=== PATIENT | male | born 1945 | race Caucasian/White ===

== ENCOUNTER 2017-12-29 20:24 | Observation (INO) | payer OTHER ==
[2017-12-29 21:23] LABS: Absolute Lymphocytes (CBC) 2.2 K/uL (0.7-4.9); Absolute Monocytes 0.8 K/uL (0.1-1.3); Absolute Neutrophil 5.1 K/uL (1.8-8.0); Basophils % 0.8 % (0-1.3); Eosinophils % 5.8 % (0-4.4); Lymphocytes % 25.4 % (15.3-44.8); MCH 31.3 pg (27.0-35.0); MCV 93.5 fL (80-100); MPV 9.7 fL (7.6-11.3); Monocytes % 9.1 % (3.3-12.3)
[2017-12-29 21:29] LABS: Protime INR 0.99
[2017-12-29 21:47] LABS: ALT/SGPT 32 U/L (12-78); AST/SGOT 19 U/L (15-37); BUN Blood Urea Nitrogen 37 mg/dL (7-18); Bicarbonate 31 mmol/L (21-32); Glucose Level 160 mg/dL (74-106); Potassium 5.1 mmol/L (3.5-5.1); Sodium Level 142 mmol/L (136-145)
[2017-12-29 21:48] LABS: Albumin 3.2 g/dL (3.4-5.0); Alkaline Phosphatase 96 U/L (45-117); Bilirubin Direct 0.1 mg/dL (0-0.2); Bilirubin Total 0.4 mg/dL (0.2-1.0); CKMB Creatine Kinase MB 1.9 ng/mL (0.3-3.6); Creatine Phosphokinase 71 U/L (39-308); NT PRO-BNP 709 pg/mL (<125); Protein, Total 6.9 g/dL (6.4-8.2); Troponin (Emerg Dept Use Only) < 0.02 ng/mL (0.0-0.045)
--- NOTE | 2017-12-29 21:53 | RAD REPORT ---
EXAM DESCRIPTION: Dejant Single View12/29/2017 9:34 pm CLINICAL HISTORY: CHEST PAIN COMPARISON: Chest Pa And Lat (2 Views) dated 05/05/2017 FINDINGS: The lungs appear clear of acute infiltrate. The heart is normal size IMPRESSION: No acute abnormalities displayed
--- NOTE | 2017-12-29 22:02 | ER ---
Nurse's Notes [facility] Name: Bry Hickey III Age: 72 yrs Sex: Male : 1945 Arrival Date: 12/29/2017 Time: 20:25 Bed 5 Private MD: Lauren Walker R Diagnosis: Chest pain Presentation: 12/29 20:30 Presenting complaint: Patient states: that he was sleeping and woke up with chest pain fc and neck pain. Got up took some Rolaids and went back to lay down. The chest pain continued for approx 1 hr. He currently has no pain unless he is taking a deep breath. Positive shortness of breath but no nausea or vomiting. Transition of care: patient was not received from another setting of care. Onset of symptoms was December 29, 2017 at 18:30. Risk Assessment: Do you want to hurt yourself or someone else? Patient reports no desire to harm self or others. Initial Sepsis Screen: Does the patient meet any 2 criteria? No. Patient's initial sepsis screen is negative. Does the patient have a suspected source of infection? No. Patient's initial sepsis screen is negative. Care prior to arrival: Medication(s) given: Rolaids x 2. 20:30 Method Of Arrival: Ambulatory fc 20:30 Acuity: DOMINIQUE 3 fc Historical: - Allergies: 20:51 Unknown antibiotic; fc - Home Meds: 20:51 Humulin 70/30 Sub-Q 35 units in am, 35 units at noon and 30 units at night [Active]; fc aspirin 81 mg Oral chew 1 tab once daily [Active]; gabapentin 600 mg Oral tab 1 tab twice a day [Active]; pravastatin 40 mg Oral tab 1 tab once daily [Active]; ramipril 10 mg Oral cap 1 cap once daily [Active]; tramadol 50 mg Oral tab 1 tab as needed [Active]; - PMHx: 20:51 Diabetes - IDDM; High Cholesterol; Hypertension; Peripheral neuropathy; restless leg fc syndrome; - PSHx: 20:51 right great toe and second toe amp; carrotid surg; right ankle; fc - Immunization history:: Last tetanus immunization: unknown. - Social history:: Smoking status: Patient uses tobacco products, chewing tobacco, Patient/guardian denies using alcohol. - Ebola Screening: : Patient negative for fever greater than or equal to 101.5 degrees Fahrenheit, and additional compatible Ebola Virus Disease symptoms Patient denies exposure to infectious person Patient denies travel to an Ebola-affected area in the 21 days before illness onset. Screenin:48 Abuse screen: Denies threats or abuse. Nutritional screening: No deficits noted. fc Tuberculosis screening: No symptoms or risk factors identified. Fall Risk None identified. Assessment: 20:30 General: Appears in no apparent distress. comfortable, obese, Behavior is calm, bp cooperative, appropriate for age. Pain: Denies pain. Neuro: Level of Consciousness is awake, alert, obeys commands, Oriented to person, place, time, situation, Appropriate for age. 20:30 Cardiovascular: Rhythm is sinus rhythm. Respiratory: Airway is patent Respiratory aa1 effort is even, unlabored, Respiratory pattern is regular, symmetrical. GI: No signs and/or symptoms were reported involving the gastrointestinal system. : No signs and/or symptoms were reported regarding the genitourinary system. EENT: No deficits noted. Derm: No deficits noted. Musculoskeletal: Circulation, motion, and sensation intact. Range of motion: intact in all extremities. 20:30 Pain: Pain radiates to chest Pain began NO CP CURRENTLY. bp 21:30 Reassessment: VS STABLE ON MONITOR, LAB/RAD RESULTS PENDING. aa1 22:28 Reassessment: ADMIT MD AT B/S, ADMIT IN PROCESS. bp 22:50 Reassessment: Room available in [facility] and orders available in [facility], called telemetry cc3 unit's extension at 1440 and spoke with staff Aislinn and said that the nurse who will receive will just call back. 23:20 Reassessment: Patient appears in no apparent distress at this time. Patient and/or cc3 family updated on plan of care and expected duration. Pain level reassessed. Patient is alert, oriented x 3, equal unlabored respirations, skin warm/dry/pink. 23:25 Reassessment: Called again telemetry unit at extension 1440 and handed over the patient cc3 report to HAYDER Dowling for continuity of care. 23:30 Reassessment: Transferred the patient to telemetry unit room 412 vitally stable by cc3 wheelchair for admission. Vital Signs: 20:30 BP 168 / 91; Pulse 80; Resp 20; Temp 98.3(O); Pulse Ox 96% on R/A; Weight 120.2 kg (R); fc Height 6 ft. 5 in. (195.58 cm) (R); Pain 0/10; 21:00 BP 163 / 80; Pulse 78; Resp 20; Pulse Ox 93% ; bp 21:30 BP 149 / 77; Pulse 81; Resp 14; Pulse Ox 97% ; aa1 22:29 BP 169 / 87; Pulse 78; Resp 11; Pulse Ox 97% ; bp 23:00 BP 181 / 65; Pulse 80; Resp 12 S; Pulse Ox 96% on R/A; Pain 0/10; cc3 20:30 Body Mass Index 31.42 (120.20 kg, 195.58 cm) fc ED Course: 20:25 Patient arrived in ED. al2 20:25 Lauren Walker MD is Private Physician. al2 20:30 Arm band placed on Patient placed in an exam room, on a stretcher. fc 20:30 Patient has correct armband on for positive identification. Placed in gown. Bed in low fc position. Call light in reach. Side rails up X 1. contact officer on. Pulse ox on. NIBP on. 20:33 Yony Valencia RN is Primary Nurse. bp 20:39 Asa Bell MD is Attending Physician. pkl 20:47 Triage completed. fc 20:49 Inserted saline lock: 22 gauge in left antecubital area, using aseptic technique. Blood bp collected. 21:33 X-ray completed. Portable x-ray completed in exam room. Patient tolerated procedure bb2 well. 21:34 XRAY Chest (1 view) In Process Unspecified. EDMS 22:01 Carline Zimmer MD is Hospitalizing Provider. pkl 22:29 No provider procedures requiring assistance completed. Patient admitted, IV remains in bp place. Patient maintains SpO2 saturation greater than 95% on room air. Administered Medications: No medications were administered Outcome: 22:01 Decision to Hospitalize by Provider. pkl 22:30 Condition: stable bp 22:30 Instructed on the need for admit. 23:25 Admitted to Tele accompanied by nurse, via wheelchair, room 412, with chart, Report cc3 called to HAYDER Dowling 23:54 Patient left the ED. cc3 Signatures: Dispatcher [employer] EDMS Augustina Arevalo RN RN aa1 Asa Bell MD MD pkl Job, HAYDER Pearson RN fc Yony Valencia RN RN bp Paresh, Radha bb2 Fide Hodgson Charlene cc3
--- NOTE | 2017-12-29 22:02 | EDPHYS ---
Physician Documentation [facility] Name: Bry Hickey III Age: 72 yrs Sex: Male : 1945 Arrival Date: 12/29/2017 Time: 20:25 Bed 5 Private MD: Lauren Walker R ED Physician Asa Bell HPI: 12/29 21:12 This 72 yrs old Male presents to ER via Ambulatory with complaints of Chest pkl Pain, Shortness Of Breath. 21:12 The patient or guardian reports chest pain that is located primarily in the substernal pkl area. Onset: just prior to arrival, 3 hour(s) ago. The pain radiates to neck. Associated signs and symptoms: Pertinent positives: shortness of breath. The chest pain is described as a pressure, squeezing. Duration: The patient or guardian reports a single episode, that lasted 1 hour(s). Historical: - Allergies: 20:51 Unknown antibiotic; fc - Home Meds: 20:51 Humulin 70/30 Sub-Q 35 units in am, 35 units at noon and 30 units at night [Active]; fc aspirin 81 mg Oral chew 1 tab once daily [Active]; gabapentin 600 mg Oral tab 1 tab twice a day [Active]; pravastatin 40 mg Oral tab 1 tab once daily [Active]; ramipril 10 mg Oral cap 1 cap once daily [Active]; tramadol 50 mg Oral tab 1 tab as needed [Active]; - PMHx: 20:51 Diabetes - IDDM; High Cholesterol; Hypertension; Peripheral neuropathy; restless leg fc syndrome; - PSHx: 20:51 right great toe and second toe amp; carrotid surg; right ankle; fc - Immunization history:: Last tetanus immunization: unknown. - Social history:: Smoking status: Patient uses tobacco products, chewing tobacco, Patient/guardian denies using alcohol. - Ebola Screening: : Patient negative for fever greater than or equal to 101.5 degrees Fahrenheit, and additional compatible Ebola Virus Disease symptoms Patient denies exposure to infectious person Patient denies travel to an Ebola-affected area in the 21 days before illness onset. ROS: 21:12 Eyes: Negative for injury, pain, redness, and discharge, ENT: Negative for injury, pkl pain, and discharge, Neck: Negative for injury, pain, and swelling. 21:12 Cardiovascular: Positive for chest pain. 21:12 Respiratory: Positive for shortness of breath. 21:12 Abdomen/GI: Negative for abdominal pain, nausea, vomiting, and diarrhea. 21:12 Back: Negative for acute changes. 21:12 : Negative for urinary symptoms. 21:12 MS/extremity: Negative for acute changes. 21:12 Skin: Negative for rash. 21:12 Neuro: Negative for altered mental status. Exam: 21:12 Head/Face: Normocephalic, atraumatic. Eyes: Pupils equal round and reactive to light, pkl extra-ocular motions intact. Lids and lashes normal. Conjunctiva and sclera are non-icteric and not injected. Cornea within normal limits. Periorbital areas with no swelling, redness, or edema. ENT: Nares patent. No nasal discharge, no septal abnormalities noted. Tympanic membranes are normal and external auditory canals are clear. Oropharynx with no redness, swelling, or masses, exudates, or evidence of obstruction, uvula midline. Mucous membranes moist. Neck: Trachea midline, no thyromegaly or masses palpated, and no cervical lymphadenopathy. Supple, full range of motion without nuchal rigidity, or vertebral point tenderness. No Meningismus. Chest/axilla: Normal chest wall appearance and motion. Nontender with no deformity. No lesions are appreciated. Cardiovascular: Regular rate and rhythm with a normal S1 and S2. No gallops, murmurs, or rubs. Normal PMI, no JVD. No pulse deficits. Respiratory: Lungs have equal breath sounds bilaterally, clear to auscultation and percussion. No rales, rhonchi or wheezes noted. No increased work of breathing, no retractions or nasal flaring. Abdomen/GI: Soft, non-tender, with normal bowel sounds. No distension or tympany. No guarding or rebound. No evidence of tenderness throughout. Back: No spinal tenderness. No costovertebral tenderness. Full range of motion. Skin: Warm, dry with normal turgor. Normal color with no rashes, no lesions, and no evidence of cellulitis. MS/ Extremity: Pulses equal, no cyanosis. Neurovascular intact. Full, normal range of motion. Neuro: Awake and alert, GCS 15, oriented to person, place, time, and situation. Cranial nerves II-XII grossly intact. Motor strength 5/5 in all extremities. Sensory grossly intact. Cerebellar exam normal. Normal gait. Vital Signs: 20:30 BP 168 / 91; Pulse 80; Resp 20; Temp 98.3(O); Pulse Ox 96% on R/A; Weight 120.2 kg (R); fc Height 6 ft. 5 in. (195.58 cm) (R); Pain 0/10; 21:00 BP 163 / 80; Pulse 78; Resp 20; Pulse Ox 93% ; bp 21:30 BP 149 / 77; Pulse 81; Resp 14; Pulse Ox 97% ; aa1 22:29 BP 169 / 87; Pulse 78; Resp 11; Pulse Ox 97% ; bp 23:00 BP 181 / 65; Pulse 80; Resp 12 S; Pulse Ox 96% on R/A; Pain 0/10; cc3 20:30 Body Mass Index 31.42 (120.20 kg, 195.58 cm) fc MDM: 20:39 Patient medically screened. pkl 22:00 Data reviewed: vital signs, nurses notes, lab test result(s), EKG, radiologic studies, pkl plain films. 12/29 20:48 Order name: Basic Metabolic Panel; Complete Time: 21:55 bp 12/29 20:48 Order name: CBC with Diff; Complete Time: 21:55 bp 12/29 20:48 Order name: Ckmb; Complete Time: 21:55 bp 12/29 20:48 Order name: CPK; Complete Time: 21:55 bp 12/29 20:48 Order name: LFT's; Complete Time: 21:55 bp 12/29 20:48 Order name: Magnesium; Complete Time: 21:55 bp 12/29 20:48 Order name: NT PRO-BNP; Complete Time: 21:55 bp 12/29 20:48 Order name: PT-INR; Complete Time: 21:55 bp 12/29 20:48 Order name: Ptt, Activated; Complete Time: 21:55 bp 12/29 20:48 Order name: Troponin (emerg Dept Use Only); Complete Time: 21:55 bp 12/29 20:48 Order name: XRAY Chest (1 view); Complete Time: 21:55 bp 12/29 20:48 Order name: EKG; Complete Time: 20:49 bp 12/29 20:48 Order name: Cardiac monitoring; Complete Time: 20:49 bp 12/29 20:48 Order name: EKG - Nurse/Tech; Complete Time: 20:49 bp 12/29 20:48 Order name: IV Saline Lock; Complete Time: 20:49 bp 12/29 20:48 Order name: Labs collected and sent; Complete Time: 20:49 bp 12/29 20:48 Order name: O2 Per Protocol; Complete Time: 20:49 bp 12/29 20:48 Order name: O2 Sat Monitoring; Complete Time: 20:49 bp 12/29 20:48 Order name: Urine Dipstick-Ancillary (obtain specimen); Complete Time: 21:59 bp 12/29 22:02 Order name: Urine Dipstick--Ancillary (enter results); Complete Time: 00:16 ms 12/29 23:53 Order name: Glucose, Ancillary Testing; Complete Time: 00:16 EDMS Administered Medications: No medications were administered Disposition: 12/29/17 22:01 Hospitalization ordered by Carline Zimmer for Observation. Preliminary diagnosis is Chest pain. - Bed requested for Telemetry/MedSurg (observation). - Status is Observation. cc3 - Condition is Stable. - Problem is new. - Symptoms have improved. UTI on Admission? No Signatures: Dispatcher [employer] EDNM Sherine Fink RN RN mw Lam, Pin, MD MD pkl Chretien, Felicia RN Yony Willis RN RN Gracie Weems cc3 Corrections: (The following items were deleted from the chart) 22:25 22:01 Hospitalization Ordered by Carline Zimmre MD for Observation. Preliminary mw diagnosis is Chest pain. Bed requested for Telemetry/MedSurg (observation). Status is Observation. Condition is Stable. Problem is new. Symptoms have improved. UTI on Admission? No. pkl 23:54 22:25 12/29/2017 22:01 Hospitalization Ordered by Carline Zimmer MD for Observation. cc3 Preliminary diagnosis is Chest pain. Bed requested for Telemetry/MedSurg (observation). Status is Observation. Condition is Stable. Problem is new. Symptoms have improved. UTI on Admission? No. mw
[2017-12-29 22:34] LABS: Urine Blood TRACE (NEG); Urine Glucose TRACE (NEG); Urine Protein 3+ (NEG); Urine Specific Gravity 1.025 (1.005-1.030)
--- NOTE | 2017-12-29 22:45 | P.HP ---
Certification for Inpatient Patient admitted to: Observation With expected LOS: <2 Midnights Practitioner: I am a practitioner with admitting privileges, knowledge of patient current condition, hospital course, and medical plan of care. Services: Services provided to patient in accordance with Admission requirements found in Title 42 Section 412.3 of the Code of Federal Regulations Patient History Date of Service: 12/29/17 Reason for admission: Chest pain History of Present Illness: Mr Hickey is a 72-year-old male with history of diabetes mellitus types 2, hypertension, dyslipidemia, who came to the ER complaining of chest pain. The pain started about 3 hr ago while he was sleeping. He states that the pain started in his throat, neck and numbness sensation, and subsequently, the pain went down to his chest. It lasts for about 1 hr, he denied any nausea, vomiting or dizziness, but it was associated with mild shortness of breath. He has never had this kind of pain before. He rates the pain 8/10 of intensity. At the time of my encounter, patient was pain-free. EKG shows a septal infarct of undetermined age, no ST-T abnormalities. Initial troponin I is negative. 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 moist/pink, EOMI, Sclerae nonicteric Neck: Supple, 2+ carotid pulse no bruit, No LAD, Without JVD or thyroid abnormality Respiratory: Clear to auscultation bilaterally, Normal air movement Cardiovascular: Regular rate/rhythm, Normal S1 S2 Gastrointestinal: Normal bowel sounds, No tenderness Musculoskeletal: No tenderness Integumentary: No rashes Neurological: Normal speech, Normal strength at 5/5 x4 extr, Normal tone, Normal affect Lymphatics: No axilla or inguinal lymphadenopathy - Studies Laboratory Data (last 24 hrs) 12/29/17 20:50: PT 11.7, INR 0.99, APTT 35.1 12/29/17 20:50: WBC 8.7, Hgb 14.7, Hct 44.0, Plt Count 195 12/29/17 20:50: Sodium 142, Potassium 5.1, BUN 37 H, Creatinine 2.60 H, Glucose 160 H, Magnesium 2.0, Total Bilirubin 0.4, AST 19, ALT 32, Alkaline Phosphatase 96 Assessment and Plan - Problems (Diagnosis) (1) Chest pain Current Visit: Yes Status: Acute Qualifiers: Chest pain type: unspecified Qualified Code(s): R07.9 - Chest pain, unspecified (2) Diabetes mellitus Current Visit: Yes Status: Acute Qualifiers: Diabetes mellitus type: type 2 Diabetes mellitus 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 So far EKG and troponin I are negative. Will order an echocardiogram in a.m. and a cardiology consult for evaluation recommendation. Will order hemoglobin A1c, and SSI for blood sugar control. - Advance Directives Does patient have a Living Will: No Does patient have a Durable POA for Healthcare: No - Code Status/Comfort Care Code Status Assessed: Yes Code Status: Full Code
[2017-12-29] MEDS ORDERED: ACETAMINOPHEN 500 MG TAB PO PRN (22:49)
[2017-12-30 00:18] VITALS: BMI 30.3
[2017-12-30 04:39] VITALS: O2SAT 94
[2017-12-30] MEDS: INSULIN -REGULAR HUMAN 50 UNIT/0.5 ML ML SQ SCH ×3 (06:27→12:00)
[2017-12-30 06:41] LABS: Absolute Lymphocytes (CBC) 2.3 K/uL (0.7-4.9); Absolute Monocytes 0.7 K/uL (0.1-1.3); Absolute Neutrophil 6.4 K/uL (1.8-8.0); Basophils % 0.9 % (0-1.3); Eosinophils % 3.9 % (0-4.4); Hematocrit 44.4 % (39.6-49.0); Lymphocytes % 23.4 % (15.3-44.8); MCH 31.1 pg (27.0-35.0); MCV 93.6 fL (80-100); MPV 9.9 fL (7.6-11.3); Monocytes % 7.5 % (3.3-12.3); RBC Red Blood Cell Count 4.75 M/uL (4.33-5.43)
[2017-12-30 06:43] LABS: Potassium 4.9 mmol/L (3.5-5.1)
[2017-12-30] MEDS ORDERED: ENOXAPARIN 30 MG/0.3 ML SQ SCH (09:00)
[2017-12-30] MEDS ORDERED: ASPIRIN EC 81 MG TAB PO SCH (09:00)
[2017-12-30] MEDS ORDERED: REGADENOSON 0.4 MG/5 ML SYR IV ONE (11:25)
[2017-12-30 12:32] VITALS: BP 192/88; TEMP 98
--- NOTE | 2017-12-30 13:00 | P.SSS ---
Patient History Date of Service: 12/30/17 Reason for admission: Chest pain History of Present Illness: Mr Hickey is a 72-year-old male with history of diabetes mellitus types 2, hypertension, dyslipidemia, who came to the ER complaining of chest pain. The pain started about 3 hr ago while he was sleeping. He states that the pain started in his throat, neck and numbness sensation, and subsequently, the pain went down to his chest. It lasts for about 1 hr, he denied any nausea, vomiting or dizziness, but it was associated with mild shortness of breath. He has never had this kind of pain before. He rates the pain 8/10 of intensity. At the time of my encounter, patient was pain-free. EKG shows a septal infarct of undetermined age, no ST-T abnormalities. Initial troponin I is negative. 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 moist/pink, EOMI, Sclerae nonicteric Neck: Supple, 2+ carotid pulse no bruit, No LAD, Without JVD or thyroid abnormality Respiratory: Clear to auscultation bilaterally, Normal air movement Cardiovascular: Regular rate/rhythm, Normal S1 S2 Gastrointestinal: Normal bowel sounds, No tenderness Musculoskeletal: No tenderness Integumentary: No rashes Neurological: Normal gait, Normal speech, Normal strength at 5/5 x4 extr, Normal tone, Normal affect Lymphatics: No axilla or inguinal lymphadenopathy - Studies Laboratory Data (last 24 hrs) 12/29/17 20:50: PT 11.7, INR 0.99, APTT 35.1 12/29/17 20:50: WBC 8.7, Hgb 14.7, Hct 44.0, Plt Count 195 12/29/17 20:50: Sodium 142, Potassium 5.1, BUN 37 H, Creatinine 2.60 H, Glucose 160 H, Magnesium 2.0, Total Bilirubin 0.4, AST 19, ALT 32, Alkaline Phosphatase 96 Treatment Summary: Overall during the hospital stay patient remained stable Patient was initially admitted to the hospital for chest pain and shortness of breath. Patient had stress test and echocardiogram done here in the hospital which were both within normal limits. Patient has a history of chronic kidney disease and his creatinine was elevated as a heart catheterization could not be done at this time. Patient however does follow up with the engravings polisher at [facility] in both and was asked to follow up with him in about 1-2 days post discharge. Patient stated that he has an appointment with his engravings polisher next week. When his chest pain had resolved and thus he is okay with falling with his own cardiology. Patient's troponin x2 remained negative while here in the hospital an EKG was also within normal limits. Patient then was discharged home under stable condition. Patient's symptoms were most likely secondary to reflux versus musculoskeletal pain patient was educated extensively on diet and exercise and importance of following up with his primary care provider and Cardiology. Patient demonstrated understanding and thus was discharged home under stable condition - Disposition Disposition: ROUTINE DISCHARGE
--- NOTE | 2017-12-30 13:42 | RAD REPORT ---
EXAM DESCRIPTION: NM - Rest Stress Cardiac Imaging - 12/30/2017 1:22 pm CLINICAL HISTORY: Chest pain COMPARISON: None. TECHNIQUE: The patient was administered 10.6 mCi of Tc 99m Sestamibi prior to resting SPECT imaging of the heart. The patient was then administered 30.6 mCi of Tc 99m Sestamibi following exercise or ph armacologic stress. Multiplanar SPECT images were reviewed. FINDINGS: The end diastolic volume is 165 ml, the end systolic volume is 103 ml, and the ejection fr action is 38 %. No stress-induced ischemia confirmed. A large fixed defect involves the inferior wall from base to ap ex. Given the ventriculomegaly, this large fixed defect could be scarring, attenuation artifact or a combination. IMPRESSION: No stress-induced ischemia. Large fixed defect inferior wall could be scarring, attenuation artifact or a combination. End-diastolic volume was 165 mL with a 38% ejection fraction.
--- NOTE | 2017-12-30 16:10 | CON ---
Date of Consultation: 12/30/2017 Reason For Consultation: Atypical chest pain. History Of Present Illness: Mr. Hickey is a 72-year-old white male. He normally sees Dr. Adriana Arellano in [place]. He sees Dr. Walker for primary care. He is supposed to have follow up wi Dr. Arellano in the future. He came in with what he described as indigestion allowed for about 15 mi nutes. He had no nausea or vomiting or diaphoresis. He denied PND, orthopnea, pedal edema. Denied shortness of breath. No palpitations or syncope. He did complain of some facial numbness. His CPK, MBs, and troponin were negative. His chest x-ray was negative. His EKG was nonspecific. He had a BNP of 709. Glucose was 149. His creatinine was 2.6. Past Medical History: Includes chronic renal insufficiency, peripheral vascular disease. He has had his first second right toe removed. He has a history of carotid surgery, diabetes, hypertension, an d dyslipidemia. He does not remember his carotid surgeon or the place he had it done. Allergies: HE IS ALLERGIC TO AN ANTIBIOTIC. HE DOES NOT KNOW THE NAME. Review of Systems: Negative. Social History: Negative. Family History: Positive for heart disease. Medications: At home include insulin, Pravachol, and ramipril. Physical Examination: Vital Signs: Stable. He was afebrile. HEENT: Negative. Neck: Supple without any bruit, adenopathy, JVD, or thyromegaly. Chest: Clear to auscultation and percussion. Cardiac: Revealed a regular rhythm and rate with S4 gallops. Aortic sclerosis murmur. No gallops. No rubs. Abdomen: Benign. Extremities: Revealed no clubbing, cyanosis, or edema. Diagnostic Data: As stated earlier. Impression And Plan: 1.Atypical chest pain certainly could be suggestive of coronary artery disease, especially with the facial numbness along with indigestion. It could also be related to gastroesophageal reflux disease. I am concerned about his creatinine of 2.6 and I certainly would not expose him to IV contract with catheterization unless we absolutely have to. I would like him to get an echocardiogram and Lexisca n to see the extent of his coronary artery disease in any and see what his wall motion abnormality is any and check on his valvular heart disease as well. I still would suggest a medical therapy unless is absolutely necessary to do an angiography. 2.His other problems include cerebrovascular disease, status post carotid endarterectomy. He told yue brooks that he is going to have his carotid checked at Dr. Arellano's office when he sees him. 3.He has peripheral vascular disease, status post amputation. 4.He has diabetes that is poorly controlled. 5.Hypertension that is well controlled. 6.Dyslipidemia that is well controlled. Forty five minutes was spent in the care of Mr. Hickey discussing the case with hand nurse, Dr. Andrew velasco. He was instructed about low-fat, low-cholesterol intake, low carbohydrate intake, low salt int ravi. NAFISA/TEAGAN Voice ID: [id number] Report ID: [id number]
--- NOTE | 2017-12-31 07:45 | ECHO ---
HEIGHT: 6 ft 5 in WEIGHT: 255 lb 11.2 oz DATE OF STUDY: 12/30/[address]: Carline Aburto MD 2-DIMENSIONAL: YES M.MODE: YES DOPPLER: YES COLOR FLOW: YES TDS: YES PORTABLE: DEFINITY: BUBBLE STUDY: DIAGNOSIS: CHEST PAIN CARDIAC HISTORY: CATHERIZATION: NO SURGERY: NO PROSTHETIC VALVE: NO PACEMAKER: NO MEASUREMENTS (cm) DIASTOLIC (NORMALS) SYSTOLIC (NORMALS) IVSd 1.1 (0.6-1.2) LA Diam 4.2 (1.9-4.0) LVEF 45% LVIDd 3.6 (3.5-5.7) LVIDs 2.8 (2.0-3.5) %FS 22% LVPWd 1.3 (0.6-1.2) Ao Diam 3.1 (2.0-3.7) 2 DIMENSIONAL ASSESSMENT: RIGHT ATRIUM: NORMAL LEFT ATRIUM: DILATED RIGHT VENTRICLE: NORMAL LEFT VENTRICLE: NORMAL TRICUSPID VALVE: NORMAL MITRAL VALVE: NORMAL PULMONIC VALVE: NORMAL AORTIC VALVE: NORMAL PERICARDIAL EFFUSION: NONE AORTIC ROOT: NORMAL LEFT VENTRICULAR WALL MOTION: PARADOXICAL SEPTUM DOPPLER/COLOR FLOW: MILD TRICUSPID REGURGITATION. COMMENTS: TECHNICALLY DIFFICULT STUDY. MILD TRICUSPID REGURGITATION. NORMAL RIGHT VENTRICULAR SYSTOLIC PRESSURE. PARADOXICAL SEPTUM. NORMAL LEFT VENTRICULAR SIZE AND FUNCTION. TECHNOLOGIST: CEZAR ELAM
--- NOTE | 2017-12-31 07:57 | TREADPHA ---
DX: CHEST PAIN Date of Study: 12/30/2017 Ht: 6 5 Wt: 255 lb 11.2 oz Consulting Physician: CECILIA MEDICATIONS: TYLENOL, ASPIRIN, LOVENOX, NOVOLIN HISTORY: 72 YEAR OLD MALE HERE FOR CHEST PAIN. HISTORY OF DIABETES, HIGH CHOLESTEROL, HYPERTENSION, PERIPHERAL NEUROPATHY, RESTLESS LEG SYNDROME. 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 AT PEAK STRESS: 161/78 IMPRESSION: LEXISCAN STRESS TEST PERFORMED. CARDIOLITE INJECTED PER PROTOCOL. OCCASIONAL PREMATURE VENTRICULAR COMPLEXES NOTED PRE AND POST STRESS TEST. PREMATURE ATRIAL COMPLEXS NOTED DURING STRESS TEST. DENIES ANY CHEST PAIN. SEE NUCLEAR MEDICINE REPORT.
== END 2017-12-30 15:48 | disposition home or self-care (01) ==
LOC: ER 20:24 → ERHOLD 22:14 → 4TH 22:34
PROVIDERS: ADMIT Internal Medicine; ATTEND Internal Medicine
DX: R07.9 Chest pain, unspecified (principal); R06.02 Shortness of breath; E78.5 Hyperlipidemia, unspecified; G25.81 Restless legs syndrome; I12.9 Hypertensive chronic kidney disease with stage 1 through stage 4 chronic kidney disease, or unspecified chronic kidney disease; E11.22 Type 2 diabetes mellitus with diabetic chronic kidney disease; N18.9 Chronic kidney disease, unspecified; Z79.82 Long term (current) use of aspirin; Z87.891 Personal history of nicotine dependence; I73.9 Peripheral vascular disease, unspecified; Z89.411 Acquired absence of right great toe
CPT/HCPCS: 36415; 71045; 78452; 80048 ×2; 80061; 80076; 81003; 82550; 82553; 82962 ×3; 83036; 83735; 83880; 84484 ×4; 85025 ×2; 85610; 85730; 93017; 93306; 99285; A9500; G0378 ×2; J1650; J2785

== ENCOUNTER 2018-06-19 10:17 | Emergency (ER) | payer OTHER ==
[2018-06-19] MEDS ORDERED: ONDANSETRON 4 MG/2 ML VIAL ONE (10:45)
[2018-06-19] MEDS ORDERED: NA CHLORIDE 0.9% 250 ML ONE (10:45)
[2018-06-19 10:56] LABS: Albumin 3.4 g/dL (3.4-5.0); Bilirubin Direct 0.2 mg/dL (0-0.2); Bilirubin Total 0.8 mg/dL (0.2-1.0); Potassium 4.3 mmol/L (3.5-5.1)
[2018-06-19 10:57] LABS: Absolute Lymphocytes (CBC) 1.5 K/uL (0.7-4.9); Absolute Monocytes 0.4 K/uL (0.1-1.3); Absolute Neutrophil 9.4 K/uL (1.8-8.0); Basophils % 0.6 % (0-1.3); Eosinophils % 0.1 % (0-4.4); Hematocrit 44.4 % (39.6-49.0); Lymphocytes % 12.9 % (15.3-44.8); Monocytes % 3.7 % (3.3-12.3); RBC Red Blood Cell Count 4.83 M/uL (4.33-5.43)
[2018-06-19] MEDS ORDERED: PROMETHAZINE 25 MG/ML VIAL ONE (11:42)
[2018-06-19] MEDS ORDERED: FAMOTIDINE 20 MG/2 ML VIAL IV ONE (11:42)
--- NOTE | 2018-06-19 12:00 | RAD REPORT ---
EXAM DESCRIPTION: CT - Abdomen Pelvis Wo Contrast - 06/19/2018 11:45 am CLINICAL HISTORY: Abdominal pain and vomiting 5 COMPARISON: None TECHNIQUE: Computed axial tomography of the abdomen and pelvis was obtained. IV and oral contrast we re not requested. All CT scans are performed using dose optimization technique as appropriate and may include automated exposure control or mA/KV adjustment according to patient size. FINDINGS: The evaluation of solid organs, vessels and bowel is limited secondary to the lack of con trast administration. A 8.5 millimeter right lower lobe nodule. The liver, spleen, and pancreas appear grossly normal. A 35 millimeter mass extends off of the posterior left kidney. Hounsfield unit 18. The right kidney a ppears grossly normal. Bilateral adrenal adenoma is suspected measuring about 17 millimeters. The appendix is normal. There is no evidence of diverticulitis. The prostate gland is mildly to moderately enlarged. Small umbilical hernia. Small hiatal hernia IMPRESSION: 8.5 millimeter right lower lobe nodule. It is recommend that the patient either have a [facility] PET-CT scan or follow-up CT scan in 3 months A 25 millimeter mass extends off of the posterior left kidney Hounsfield unit 18. Renal ultrasound is recommended to determine if this represents a cyst
[2018-06-19 12:43] LABS: Urine Blood 2+ (NEG); Urine Glucose 2+ (NEG); Urine Protein 3+ (NEG); Urine pH 5.5 (5.0-7.0)
--- NOTE | 2018-06-19 14:58 | RAD REPORT ---
EXAM DESCRIPTION: US - Renal Ultrasound-Complete - 06/19/2018 2:07 pm CLINICAL HISTORY: Left flank pain COMPARISON: CT study June 19 FINDINGS: The right kidney measures 10.8 x 6.2 x 5.9 cm. The left kidney measures 11.9 x 6.1 x 5.4 cm. Cortical thickness is normal. There is increased cortical echogenicity consistent with medical re nal disease. No hydronephrosis or solid mass seen. In the posterior mid left kidney a 3.3 centimeter anechoic cyst is identified. This matches the ultrasound finding. Mass is benign by ultrasound criter ia. No bladder wall thickening or mass. No intraluminal stone or mass. IMPRESSION: Approximately 3.3 centimeter anechoic cyst is present posterior mid left kidney. This is the correlate to the CT finding and is benign by ultrasound criteria. Underlying medical renal disease is suspected.
--- NOTE | 2018-06-19 15:03 | ER ---
Nurse's Notes [facility] Name: Bry Hickey III Age: 72 yrs Sex: Male : 1945 Arrival Date: 06/19/2018 Time: 10:18 Bed 20 Private MD: Diagnosis: Nausea and vomiting;Chronic renal failure, 8.5 mm lumg mass. Benign renal cyst Presentation: 06/19 09:15 Initial Sepsis Screen: Does the patient meet any 2 criteria? No. Patient's initial sv sepsis screen is negative. Does the patient have a suspected source of infection? No. Patient's initial sepsis screen is negative. 10:15 Presenting complaint: EMS states: n/v/malaise started today. BP 150/70 HR-88 SR, sv BS-282, 20 G R FA, NS 500 mls bolus, Zofran 4 mg IVP given. Transition of care: patient was not received from another setting of care. Onset of symptoms was June 19, 2018. Risk Assessment: Do you want to hurt yourself or someone else? Patient reports no desire to harm self or others. Care prior to arrival: IV initiated. 20 GA, in the right forearm, Glucose check: 282. 10:15 Method Of Arrival: EMS: [facility] sv 10:15 Acuity: DOMINIQUE 3 sv Triage Assessment: 10:15 General: Appears in no apparent distress. uncomfortable, well developed, Behavior is sv calm, cooperative, appropriate for age. Pain: Denies pain. Neuro: Level of Consciousness is awake, alert, obeys commands, Oriented to person, place, time, situation, Moves all extremities. Full function Gait is steady, Speech is normal. Respiratory: Airway is patent Respiratory effort is even, unlabored, Respiratory pattern is regular, symmetrical. GI: Abdomen is round non-distended, Bowel sounds present X 4 quads. Abd is soft and non tender X 4 quads. Reports constipation, nausea, vomiting. Derm: Skin is pink, warm \T\ dry. Historical: - Allergies: 10:22 unknown antibiotic; sv - PMHx: 10:22 Diabetes - IDDM; High Cholesterol; Hypertension; PERIPHERAL NEUROPATHY; restless leg sv syndrome; - PSHx: 10:22 right great toe and second toe amp; Carotid surgery; right ankle; sv - Immunization history:: Adult Immunizations up to date. - Social history:: Smoking status: Patient/guardian denies using tobacco. - Ebola Screening: : No symptoms or risks identified at this time. Screenin:15 Abuse screen: Denies threats or abuse. Denies injuries from another. Nutritional sv screening: No deficits noted. Tuberculosis screening: No symptoms or risk factors identified. Fall Risk None identified. Assessment: 10:40 Reassessment: Patient appears in no apparent distress at this time. No changes from sv previously documented assessment. Patient and/or family updated on plan of care and expected duration. Pain level reassessed. Patient is alert, oriented x 3, equal unlabored respirations, skin warm/dry/pink. 11:35 Reassessment: Patient appears in no apparent distress at this time. No changes from sv previously documented assessment. Patient and/or family updated on plan of care and expected duration. Pain level reassessed. Patient is alert, oriented x 3, equal unlabored respirations, skin warm/dry/pink. Pt requesting Phenergan. 13:00 Reassessment: Patient appears in no apparent distress at this time. No changes from sv previously documented assessment. Patient and/or family updated on plan of care and expected duration. Pain level reassessed. Patient is alert, oriented x 3, equal unlabored respirations, skin warm/dry/pink. 14:58 Reassessment: Patient appears in no apparent distress at this time. No changes from sv previously documented assessment. Patient and/or family updated on plan of care and expected duration. Pain level reassessed. Patient is alert, oriented x 3, equal unlabored respirations, skin warm/dry/pink. Vital Signs: 10:22 BP 163 / 64; Pulse 78; Resp 15; Temp 97.7(O); Pulse Ox 100% on R/A; Pain 0/10; sv 11:15 BP 123 / 75; Pulse 68; Resp 21; Pulse Ox 100% ; sv 12:00 BP 153 / 63; Pulse 76; Resp 16; Pulse Ox 100% ; sv 13:31 BP 132 / 93; Pulse 94; Resp 19; Pulse Ox 99% ; sv 15:00 BP 130 / 77; Pulse 88; Resp 16; Pulse Ox 100% ; sv ED Course: 09:15 Patient has correct armband on for positive identification. Placed in gown. Bed in low sv position. Call light in reach. Side rails up X2. bus driver/monitor on. Pulse ox on. NIBP on. Door closed. Warm blanket given. Head of bed elevated. 10:15 Maintain EMS IV. Dressing intact. Site clean \T\ dry. Gauge \T\ site: 20G R FA. sv 10:15 Arm band placed on Patient placed in an exam room, on a stretcher. sv 10:18 Patient arrived in ED. sv 10:19 Arleth Long RN is Primary Nurse. sv 10:21 Triage completed. sv 10:23 Josue Jeter MD is Attending Physician. kdr 10:30 Inserted saline lock: 22 gauge in right antecubital area, using aseptic technique. sv ,using aseptic technique. difusics, done by [facility] Blood collected. 10:43 Urine Dipstick--Ancillary (enter results) Sent. sv 10:43 Basic Metabolic Panel Sent. sv 10:43 CBC with Diff Sent. sv 10:43 Creatinine for Radiology Sent. sv 10:43 Hepatic Function Sent. sv 10:43 Lipase Sent. sv 10:44 Awaiting ED provider evaluation. sv 11:44 CT completed. Patient tolerated procedure well. Patient moved to CT via stretcher. sj Patient moved back from CT. 12:25 CT Abd/Pelvis - W/Contrast Sent. sv 13:03 Awaiting disposition, Awaiting re-evaluation by ER provider. sv 15:23 No provider procedures requiring assistance completed. IV discontinued, intact, sv bleeding controlled, No redness/swelling at site. Pressure dressing applied. Administered Medications: 10:40 Drug: Zofran 4 mg Route: IVP; Site: right forearm; sv 11:00 Follow up: Response: No adverse reaction sv 10:41 Drug: NS 0.9% 250 ml Route: IV; Rate: bolus; Site: right forearm; sv 11:30 Follow up: Response: No adverse reaction; IV Status: Completed infusion; IV Intake: sv 250ml 11:40 Drug: Phenergan 12.5 mg Route: IVP; Site: right forearm; sv 12:00 Follow up: Response: No adverse reaction; Marked relief of symptoms; Nausea is decreasedsv 11:42 Drug: Pepcid 20 mg Route: IVP; Site: right forearm; sv 12:00 Follow up: Response: No adverse reaction; Marked relief of symptoms sv 11:51 CANCELLED (Physician Discretion): Zofran 4 mg IVP once; over 2 minutes sv Intake: 11:30 IV: 250ml; Total: 250ml. sv Outcome: 15:02 Discharge ordered by . kdr 15:23 Patient left the ED. sv 15:23 Discharged to home via wheelchair, with family. sv 15:23 Condition: stable 15:23 Condition: improved 15:23 Discharge instructions given to patient, family, Instructed on discharge instructions, follow up and referral plans. no drinking with medication, no driving heavy equipment, medication usage, Demonstrated understanding of instructions, follow-up care, medications, Prescriptions given X 1. Signatures: Arleth Long RN RN sv Josue Jeter MD MD kdr Jones, Susan Corrections: (The following items were deleted from the chart) 10:41 10:22 Pulse 78bpm; Resp 15bpm; Pulse Ox 100% RA; sv sv
--- NOTE | 2018-06-19 15:03 | EDPHYS ---
Physician Documentation [facility] Name: Bry Hickey III Age: 72 yrs Sex: Male : 1945 Arrival Date: 06/19/2018 Time: 10:18 Bed 20 Private MD: ED Physician Josue Jeter HPI: 06/19 18:29 This 72 yrs old Male presents to ER via EMS with complaints of kdr Nausea/Vomiting. 18:29 The patient presents to the emergency department with nausea, that is moderate, kdr vomiting, that is intermittent. Onset: The symptoms/episode began/occurred gradually, today. Possible causes: unknown. The symptoms are aggravated by nothing. food , The symptoms are alleviated by remaining still. Associated signs and symptoms: Pertinent positives: nausea, vomiting, Pertinent negatives: abdominal pain, anorexia, constipation, diarrhea, dysuria, fever, flatulence, GI bleeding, hematuria. Severity of symptoms: At their worst the symptoms were moderate in the emergency department the symptoms are unchanged. The patient has not experienced similar symptoms in the past. The patient has not recently seen a physician. Historical: - Allergies: 10: unknown antibiotic; sv - PMHx: 10: Diabetes - IDDM; High Cholesterol; Hypertension; PERIPHERAL NEUROPATHY; restless leg sv syndrome; - PSHx: 10:22 right great toe and second toe amp; Carotid surgery; right ankle; sv - Immunization history:: Adult Immunizations up to date. - Social history:: Smoking status: Patient/guardian denies using tobacco. - Ebola Screening: : No symptoms or risks identified at this time. ROS: 18:29 Constitutional: Negative for fever, chills, and weight loss, Eyes: Negative for injury, kdr pain, redness, and discharge, Neck: Negative for injury, pain, and swelling, Cardiovascular: Negative for chest pain, palpitations, and edema, Respiratory: Negative for shortness of breath, cough, wheezing, and pleuritic chest pain, Abdomen/GI: Negative for abdominal pain, nausea, vomiting, diarrhea, and constipation, Back: Negative for injury and pain, : Negative for injury, bleeding, discharge, and swelling, MS/Extremity: Negative for injury and deformity, Skin: Negative for injury, rash, and discoloration, Neuro: Negative for headache, weakness, numbness, tingling, and seizure activity. Psych: Negative for depression, anxiety, suicide ideation, homicidal ideation, and hallucinations, Allergy/Immunology: Negative for hives, rash, and allergies, Endocrine: Negative for neck swelling, polydipsia, polyuria, polyphagia, and marked weight changes, Hematologic/Lymphatic: Negative for swollen nodes, abnormal bleeding, and unusual bruising. 18:29 Abdomen/GI: Positive for nausea and vomiting, Negative for constipation, abdominal kdr cramps, abdominal distension, anorexia, dysphagia, hematemesis, black/tarry stool, rectal pain. Exam: 18:29 Constitutional: This is a well developed, well nourished patient who is awake, alert, kdr and in no acute distress. Head/Face: Normocephalic, atraumatic. 18:29 Eyes: Pupils equal round and reactive to light, extra-ocular motions intact. Lids and kdr lashes normal. Conjunctiva and sclera are non-icteric and not injected. Cornea within normal limits. Periorbital areas with no swelling, redness, or edema. Neck: Trachea midline, no thyromegaly or masses palpated, and no cervical lymphadenopathy. Supple, full range of motion without nuchal rigidity, or vertebral point tenderness. No Meningismus. Chest/axilla: Normal chest wall appearance and motion. Nontender with no deformity. No lesions are appreciated. Cardiovascular: Regular rate and rhythm with a normal S1 and S2. No gallops, murmurs, or rubs. Normal PMI, no JVD. No pulse deficits. Respiratory: Lungs have equal breath sounds bilaterally, clear to auscultation and percussion. No rales, rhonchi or wheezes noted. No increased work of breathing, no retractions or nasal flaring. Abdomen/GI: Soft, non-tender, with normal bowel sounds. No distension or tympany. No guarding or rebound. The patient has low abdominal bloated feeling Back: No spinal tenderness. No costovertebral tenderness. Full range of motion. Skin: Warm, dry with normal turgor. Normal color with no rashes, no lesions, and no evidence of cellulitis. MS/ Extremity: Pulses equal, no cyanosis. Neurovascular intact. Full, normal range of motion. Neuro: Awake and alert, GCS 15, oriented to person, place, time, and situation. Cranial nerves II-XII grossly intact. Motor strength 5/5 in all extremities. Sensory grossly intact. Cerebellar exam normal. Normal gait. Psych: Awake, alert, with orientation to person, place and time. Behavior, mood, and affect are within normal limits. Vital Signs: 10:22 BP 163 / 64; Pulse 78; Resp 15; Temp 97.7(O); Pulse Ox 100% on R/A; Pain 0/10; sv 11:15 BP 123 / 75; Pulse 68; Resp 21; Pulse Ox 100% ; sv 12:00 BP 153 / 63; Pulse 76; Resp 16; Pulse Ox 100% ; sv 13:31 BP 132 / 93; Pulse 94; Resp 19; Pulse Ox 99% ; sv 15:00 BP 130 / 77; Pulse 88; Resp 16; Pulse Ox 100% ; sv MDM: 15:02 Patient medically screened. kdr 18:29 Data reviewed: vital signs, nurses notes. Counseling: I had a detailed discussion with kdr the patient and/or guardian regarding: the historical points, exam findings, and any diagnostic results supporting the discharge/admit diagnosis, lab results, radiology results, the need for outpatient follow up. 06/19 10:23 Order name: Basic Metabolic Panel 06/19 10:23 Order name: CBC with Diff 06/19 10:23 Order name: Creatinine for Radiology 06/19 10:23 Order name: Hepatic Function 06/19 10:23 Order name: Lipase 06/19 10:37 Order name: Urine Dipstick--Ancillary (enter results) 06/19 10:56 Order name: Basic Metabolic Panel; Complete Time: 11:24 EDIL 06/19 10:56 Order name: Liver (Hepatic) Function; Complete Time: 11:24 EDIL 06/19 10:56 Order name: Lipase; Complete Time: 11:24 EDIL 06/19 10:59 Order name: CBC with Automated Diff; Complete Time: 11:24 EDMS 06/19 11:09 Order name: Creatinine (Radiology Only); Complete Time: 11:24 EDIL 06/19 11:24 Order name: CT Abd/Pelvis - W/Contrast [facility] 06/19 12:01 Order name: CT; Complete Time: 13:05 EDIL 06/19 12:43 Order name: Urine Dipstick-Ancillary; Complete Time: 13:05 EDIL 06/19 10:23 Order name: IV Saline Lock; Complete Time: 10:38 sv 06/19 10:23 Order name: Labs collected and sent; Complete Time: 10:38 sv 06/19 14:59 Order name: US; Complete Time: 15:00 EDMS Administered Medications: 10:40 Drug: Zofran 4 mg Route: IVP; Site: right forearm; sv 11:00 Follow up: Response: No adverse reaction sv 10:41 Drug: NS 0.9% 250 ml Route: IV; Rate: bolus; Site: right forearm; sv 11:30 Follow up: Response: No adverse reaction; IV Status: Completed infusion; IV Intake: sv 250ml 11:40 Drug: Phenergan 12.5 mg Route: IVP; Site: right forearm; sv 12:00 Follow up: Response: No adverse reaction; Marked relief of symptoms; Nausea is decreasedsv 11:42 Drug: Pepcid 20 mg Route: IVP; Site: right forearm; sv 12:00 Follow up: Response: No adverse reaction; Marked relief of symptoms sv 11:51 CANCELLED (Physician Discretion): Zofran 4 mg IVP once; over 2 minutes sv Disposition: 06/19/18 15:02 Discharged to Home. Impression: Nausea and vomiting, Chronic renal failure, 8.5 mm lumg mass. Benign renal cyst. - Condition is Stable. - Discharge Instructions: Nausea and Vomiting, Adult, [id number]. - Prescriptions for promethazine 25 mg Oral Tablet - take 1 tablet by ORAL route every 6 hours As needed; 30 tablet. - Medication Reconciliation Form, Thank You Letter form. - Follow up: Private Physician; When: 2 - 3 days; Reason: If symptoms return, Further diagnostic work-up, Recheck today's complaints, Continuance of care, Re-evaluation by your physician. - Problem is new. - Symptoms have improved. Signatures: Dispatcher [employer] EDMS Arleth Long RN RN sv Rittger, Kevin, MD MD kdr Corrections: (The following items were deleted from the chart) 11:51 11:24 Zofran 4 mg IVP once; over 2 minutes ordered. kdr sv 15:23 15:02 06/19/2018 15:02 Discharged to Home. Impression: Nausea and vomiting; Chronic sv renal failure, 8.5 mm lumg mass. Benign renal cyst. Condition is Stable. Forms are Medication Reconciliation Form, Thank You Letter, Antibiotic Education, Prescription Opioid Use. Follow up: Private Physician; When: 2 - 3 days; Reason: If symptoms return, Further diagnostic work-up, Recheck today's complaints, Continuance of care, Re-evaluation by your physician. Problem is new. Symptoms have improved. kdr
[2018-06-19 16:05] VITALS: TEMP 97.7
[2018-06-19 16:09] VITALS: BP 132/93; O2SAT 99
== END 2018-06-19 15:23 | disposition home or self-care (01) ==
LOC: ER 10:17
DX: E11.22 Type 2 diabetes mellitus with diabetic chronic kidney disease (principal); I12.9 Hypertensive chronic kidney disease with stage 1 through stage 4 chronic kidney disease, or unspecified chronic kidney disease; R91.8 Other nonspecific abnormal finding of lung field; N28.1 Cyst of kidney, acquired; N18.9 Chronic kidney disease, unspecified; Z88.1 Allergy status to other antibiotic agents
CPT/HCPCS: 36415; 74176; 76770; 80048; 80076; 81003; 82962; 83690; 85025; 96365; 96375; 99285; J2405; J2550

== ENCOUNTER 2021-03-11 15:55 | Emergency (ER) | payer OTHER ==
--- OUTSIDE RECORDS SUMMARY | 2021-03-11 15:58 | XMS REPORT | Continuity of Care Document ---
:1945 Author Organization [facility] t Address [address] [place] [address] Care Team Providers Name Role Phone Aaron WAGONER Primary Care Physician Sharyn CONSTANTINO Attending Clinician Unavailable Nayeli PRADO Attending Clinician Unavailable KLAUS Attending Clinician Unavailable Klaus POOL Attending Clinician Sharyn Constantino MD Attending Clinician Doctor Unassigned, Name Attending Clinician Unavailable NICO Attending Clinician Unavailable Sharyn CONSTANTINO Admitting Clinician Unavailable Sharyn Constantino MD Admitting Clinician Payers Payer Name Policy Type Policy Number Effective Date Expiration Date Dwight DACOSTA MANAGED [id number] 2020 MEDICARE PPO-JUAN 00:00:00 MEDICARE PART A [id number] 2021 \T\ B 00:00:00 Problems Condition Condition Condition Status Onset Resolution Last Treating Co mments Source Name Details Category Date Date Treatment Clinician Date Bladder Bladder Disease Active 2020-04 Overview: Univ ers mass mass 04-28 Formattin ity of 00:00: g of this [place] note Medical might be Branch different from the original. 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 Added automatic ally from request for surgery [id number] No known No known Disease Unive rs active active ity of problems problems [facility] Branch Allergies, Adverse Reactions, Alerts Allergy Allergy Status Severity Reaction(s) Onset Inactive Treating Comm ents Source Name Type Date Date Clinician NO KNOWN Drug Active Univers ALLERGIE Class ity of [facility] Social History Social Habit Start Date Stop Date Quantity Comments Source History of Chews Tobacco [place] of tobacco use [facility] Exposure to Not sure University of SARS-CoV-2 [facility] (event) [place] Alcohol intake 2021-03-10 2021-03-10 0 /d University of 00:00:00 00:00:00 [facility] Tobacco use and 2015-10-10 2015-10-10 Current user Univers ity of exposure 00:00:00 00:00:00 [facility] [birth year] Universit y of 00:00:00 00:00:00 [facility] Smoking Status Start Date Stop Date Source Former smoker 2015-10-10 00:00:00 2015-10-10 00:00:00 Universi ty [facility] Medications Ordered Filled Start Stop Current Ordering Indication Dosage Frequency Signature Comments Components Source Medication Medication Date Date Medication? Clinician (SIG) Name Name HYDROcodone 2020-04 Yes 1{tbl} Take 1 Un tam[place] -acetaminop 1-10 tablet by ity of hen 5-325 15:47: mouth 3 [place] mg tablet 50 (three) Medical times Branch daily. aspirin 81 2020-04 Yes Take by Uni vers mg Cap 1-10 mouth. ity of 15:47: [address] HYDROcodone 2020-04 Yes 1{tbl} Take 1 Un tamiko -acetaminop 1-10 tablet by ity of hen 5-325 15:47: mouth 3 [place] mg tablet 50 (three) Medical times Branch daily. aspirin 81 2020-04 Yes Take by Uni vers mg Cap 1-10 mouth. ity of 15:47: [address] HYDROcodone 2020-04 Yes 1{tbl} Take 1 Un tam[place] -acetaminop 1-10 tablet by ity of hen 5-325 15:47: mouth 3 [place] mg tablet 50 (three) Medical times Branch daily. aspirin 81 2020-04 Yes Take by Uni vers mg Cap 1-10 mouth. ity of 15:47: [address] sennosides 2020-04 Yes 8.6mg 8.6 mg, Uni vers (SENOKOT) 1-10 Oral, ity of tablet 8.6 15:00: DAILY, [place] mg 00 First dose Medical on [facility] 03/07/21 at 0900, Until Discontinu ed, Routine sennosides 2020-04- No 8.6mg 8.6 mg, Un tamiko (SENOKOT) 1-10 11-10 Oral, ity of tablet 8.6 15:00: 23:52 [place]ILY, [place] mg [place] :53 First dose Medical on [facility] 03/07/21 at 0900, Until Discontinu ed, Routine acetaminoph 2020-04 Yes 650mg 650 mg, Un tamiko en 1-10 Oral, Q6H, ity of (TYLENOL) 06:00: [place] tablet 650 00 on [facility] Medical mg 03/07/21 Branch at 0000, Until Discontinu ed, Routine acetaminoph 2020-04- No 650mg 650 mg, U nivers en -10 11-10 Oral, Q6H, ity of (TYLENOL) 06:00: 23:52 First dose [place] tablet 650 00 :53 on [facility] Medical mg 03/07/21 Branch at 0000, Until Discontinu ed, Routine Sliding 2020-04 Yes Subcutaneo Univ ers Scale 1-10 us, TID ity of Insulin - 03:00: MEALS+HS, [place] Lispro 00 First dose Medical (HumaLOG) + on [facility] 03/06/21 at Testing 2100, Until Discontinu ed, Routine Sliding 2020-04 No Subcutaneo Uni vers Scale 1-10 11-10 us, TID ity of Insulin - 03:00: 23:52 MEALS+HS, [place] Lispro 00 :53 First dose Medical (HumaLOG) + on [facility] 03/06/21 at Testing 2100, Until Discontinu ed, Routine gabapentin 2020-04 Yes 300mg 300 mg, Uni vers (NEURONTIN) 1-10 Oral, TID, it y of capsule 300 02:00: First dose [place] mg 00 on [facility] 03/06/21 at Branch 2000, Until Discontinu ed, Routine gabapentin 2020-04- No 300mg 300 mg, Un tamiko (NEURONTIN) 1-10 11-10 Oral, TID, i ty of capsule 300 02:00: 23:52 First dose [place] mg 00 :53 on [facility] 03/06/21 at Branch 2000, Until Discontinu ed, Routine glucagon 2020-04 Yes 1mg 1 mg, Univers (GLUCAGEN 1-10 Intramuscu ity of DIAGNOSTIC 00:31: lar, [place]N, [place] KIT) 03 Starting Medical injection 1 on [facility] 03/06/21 at 1831, Until Discontinu ed, DAVID, Blood Glucose < or = 70 mg/dL and patient is unable to swallow or has mental changes. dextrose 50 2020-04 Yes 25mL 25 mL, Univ ers % in water 1-10 Slow IV ity of (D50W) 00:31: Push, PRN, [place] injection 03 Starting Medica l 25 mL on [facility] 03/06/21 at 1831, Until Discontinu ed, DAVID, Blood Glucose < or = 70 mg/dL and patient is unable to swallow or has mental status changes. glucagon 2020-04- No 1mg 1 mg, Univers (GLUCAGEN 1-10 11-10 Intramuscu ity of DIAGNOSTIC 00:31: 23:52 lar, PRN, [place] KIT) 03 :53 Starting Medical injection 1 on [facility] 03/06/21 at 1831, Until Fri03/07/21 at 1752, DAVID, Blood Glucose < or = 70 mg/dL and patient is unable to swallow or has mental changes. dextrose 50 2020-04- No 25mL 25 mL, Uni vers % in water 1-10 11-10 Slow IV ity o f (D50W) 00:31: 23:52 [place], PRN, [place] injection 03 :53 Starting Medica l 25 mL on [facility] 03/06/21 at 1831, Until Fri03/07/21 at 1752, DAVID, Blood Glucose < or = 70 mg/dL and patient is unable to swallow or has mental status changes. ketorolac 2020-04 Yes 15mg 15 mg, Univer s (TORADOL) 1-10 Slow IV ity of injection 00:30: Push, [place] 15 mg 21 Q6HPRN, 4 Medical doses, Branch Starting on 03/06/21 at 1830, Until Discontinu ed, Routine, Pain (scale 7-10)
F aculty member approving Restricted medication : LEOPOLDO CONSTANTINO ketorolac 2020-04- No 15mg 15 mg, Unive rs (TORADOL) 1-10 11-10 Slow IV ity of injection 00:30: 23:52 Push, [place] 15 mg 21 :53 Q6HPRN, 4 Medical doses, Branch Starting on Fri03/06/21 at 1830, Until Fri03/07/21 at 1752, Routine, Pain (scale 7-10)
F aculty member approving Restricted medication : LEOPOLDO CONSTANTINO hyoscyamine 2020-04 Yes .125mg 0.125 mg, Univers sulfate 1-10 Sublingual ity of (LEVSIN/SL) 00:30: , Q4HPRN, [place] sublingual 15 Starting Medic al tablet on Fri Branch 0.125 mg 03/06/21 at 1830, Until Discontinu ed, Routine, Bladder spasms hyoscyamine 2020-04- No .125mg 0.125 mg, Univers sulfate 1-10 11-10 Sublingual ity o f (LEVSIN/SL) 00:30: 23:52 , Q4HPRN, [place] sublingual 15 :53 Starting Medic al tablet on Fri Branch 0.125 mg 03/06/21 at 1830, Until Fri03/07/21 at 1752, Routine, Bladder spasms lactated 2020-04 Yes 1000mL at 150 Unive rs ringers IV 1-10 mL/hr, ity of infusion 00:30: 1,000 mL, [place] 1,000 mL 00 IV Medical Infusion, Branch CONTINUOUS , Starting on Fri03/06/21 at 1845, Until Discontinu ed, Routine lactated 2020-04- No 1000mL at 150 Univ ers ringers IV 1-10 11-10 mL/hr, ity of infusion 00:30: 23:52 1,000 mL, [place] 1,000 mL 00 :53 IV Medical Infusion, Branch CONTINUOUS , Starting on Fri03/06/21 at 1845, Until Fri03/07/21 at 1752, Routine ondansetron 2020-04 Yes 4mg 4 mg, Slow Univers (ZOFRAN 1-10 IV Push, ity of (PF)) 00:28: Q4HPRN, [place] injection 4 55 Starting Medi jarrett mg on Tue Branch 03/06/21 at 1828, Until Discontinu ed, Routine, Nausea and Vomiting (N/V) ondansetron 2020-04- No 4mg 4 mg, Slow Univers (ZOFRAN 05-07 11-10 IV Push, ity of (PF)) 00:28: 23:52 Q4HPRN, [place] injection 4 55 :53 Starting Medi jarrett mg on e Branch 03/06/21 at 1828, Until 03/07/21 at 1752, Routine, Nausea and Vomiting (N/V) HYDROcodone 2020-04- No 1{tbl} 1 tablet, Univers -acetaminop 05-06 Oral, ity of hen (NORCO 22:30: 00:00 ONCE, 1 [place] 5) 5-325 mg 00 :00 dose, On Medi [place]rett tablet 1 Tue Branch tablet 03/06/21 at 1630, Routine, PACU HYDROcodone 2020-04- No 1{tbl} 1 tablet, Univers -acetaminop 05-06 Oral, ity of hen (NORCO 22:30: 00:00 ONCE, 1 [place] 5) 5-325 mg 00 :00 dose, On Medi jarrett tablet 1 e Branch tablet 03/06/21 at 1630, Routine, PACU acetaminoph 2020-04- Yes [id number] 650mg Take 2 Univers en 05-06- tablets by ity of (TYLENOL) 00:00: 05:59 mouth [place] 325 mg 00 :00 every 6 Medical tablet (six) Branch hours as needed for Pain (scale 4-6). acetaminoph 2020-04- Yes [id number] 650mg Take 2 Univers en 05-06 11-10 tablets by ity of (TYLENOL) 00:00: 05:59 mouth [place] 325 mg 00 :00 every 6 Medical tablet (six) Branch hours as needed for Pain (scale 4-6). acetaminoph 2020-04- Yes [id number] 650mg Take 2 Univers en 05-06-10 tablets by ity of (TYLENOL) 00:00: 05:59 mouth [place] 325 mg 00 :00 every 6 Medical tablet (six) Branch hours as needed for Pain (scale 4-6). HYDROcodone 2020-04 Yes 1{tbl} Take 1 Un [place] -acetaminop 1-04 tablet by ity of hen 5-325 16:18: mouth 3 [place] mg tablet 09 (three) Medical times Branch daily. aspirin 81 2020-04 Yes Take by Uni vers mg Cap 1-04 mouth. ity of 16:18: Medical Branch HYDROcodone 2020-04 Yes 1{tbl} Take 1 Un [place] -acetaminop 1-04 tablet by ity of hen 5-325 16:18: mouth 3 [place] mg tablet 09 (three) Medical times Branch daily. aspirin 81 2020-04 Yes Take by Uni vers mg Cap 1-04 mouth. ity of 16:18: Medical Branch ONE TOUCH Yes USE 3 Univers DELICA 33 6-30 TIMES A ity of gauge Misc 00:00: DAY Medical Branch ONE TOUCH Yes USE 3 Univers DELICA 33 6-30 TIMES A ity of gauge Misc 00:00: DAY Medical Branch ONE TOUCH Yes USE 3 Univers DELICA 33 6-30 TIMES A ity of gauge Misc 00:00: DAY Medical Branch ONE TOUCH Yes USE 3 Univers DELICA 33 6-30 TIMES A ity of gauge Misc 00:00: DAY Medical Branch ONE TOUCH Yes USE 3 Univers DELICA 33 6-30 TIMES A ity of gauge Misc 00:00: DAY Medical Branch ONE TOUCH Yes USE 3 Univers DELICA 33 6-30 TIMES A ity of gauge Misc 00:00: Medical Branch ONE TOUCH Yes USE 3 Univers DELICA 33 6-30 TIMES A ity of gauge Misc 00:00: DAY Medical Branch ONE TOUCH Yes USE 3 Univers DELICA 33 6-30 TIMES A ity of gauge Misc 00:00: DAY Medical Branch BD INSULIN Yes Univers SYRINGE 6-12 ity of ULTRA-FINE 00:00: [place] 0.5 mL 31 00 Medical gauge x Branch 5/16 Syrg BD INSULIN 2015- Yes Univers SYRINGE 6-12 ity of ULTRA-FINE 00:00: [place] 0.5 mL 31 00 Medical gauge x Branch 5/16 Syrg BD INSULIN 0 Yes Univers SYRINGE 6-12 ity of ULTRA-FINE 00:00: [place] 0.5 mL Medical gauge x Branch 5/16 Syrg BD INSULIN 0 Yes Univers SYRINGE 6-12 ity of ULTRA-FINE 00:00: [place] 0.5 mL Medical gauge x Branch 5/16 Syrg BD INSULIN 0 Yes Univers SYRINGE 6-12 ity of ULTRA-FINE 00:00: [place] 0.5 mL Medical gauge x Branch 5/16 Syrg BD INSULIN 0 Yes Univers SYRINGE 6-12 ity of ULTRA-FINE 00:00: [place] 0.5 mL Medical gauge x Branch 5/16 Syrg BD INSULIN 0 Yes Univers SYRINGE 6-12 ity of ULTRA-FINE 00:00: [place] 0.5 mL Medical gauge x Branch 5/16 Syrg BD INSULIN 0 Yes Univers SYRINGE 6-12 ity of ULTRA-FINE 00:00: [place] 0.5 mL Medical gauge x Branch 5/16 Syrg traMADOL 0 Yes Univers (ULTRAM) 50 5-27 ity of mg tablet 00:00: [facility] Branch traMADOL 0 Yes Univers (ULTRAM) 50 5-27 ity of mg tablet 00:00: Medical Branch traMADOL 0 Yes Univers (ULTRAM) 50 5-27 ity of mg tablet 00:00: [facility] Branch traMADOL 0 Yes Univers (ULTRAM) 50 5-27 ity of mg tablet 00:00: [facility] Branch traMADOL 0 Yes Univers (ULTRAM) 50 5-27 ity of mg tablet 00:00: Medical [place] traMADOL 20160 Yes Univers (ULTRAM) 50 5-27 ity of mg tablet 00:00: [place] [facility] traMADOL 0 Yes Univers (ULTRAM) 50 5-27 ity of mg tablet 00:00: [place] [facility] traMADOL 0 Yes Univers (ULTRAM) 50 5-27 ity of mg tablet 00:00: [place] [facility] gabapentin 0 Yes Univers (NEURONTIN) 5-23 ity of 100 mg 00:00: [facility] Branch gabapentin 0 Yes Univers (NEURONTIN) 5-23 ity of 100 mg 00:00: [place] capsule 00 Medical Branch gabapentin 2016-0 Yes 600mg 600 mg. Uni vers (NEURONTIN) 5-23 ity of 100 mg 00:00: [place] capsule 00 Medical Branch gabapentin 2016-0 Yes 600mg 600 mg. Uni vers (NEURONTIN) 5-23 ity of 100 mg 00:00: [place] capsule 00 Medical Branch gabapentin 2016-0 Yes 600mg 600 mg. Uni vers (NEURONTIN) 5-23 ity of 100 mg 00:00: [place] capsule Medical Branch gabapentin 2016-0 Yes 600mg 600 mg. Uni vers (NEURONTIN) 5-23 ity of 100 mg 00:00: [place] capsule Medical Branch gabapentin 0 Yes 600mg 600 mg. Uni vers (NEURONTIN) 5-23 ity of 100 mg 00:00: [place] capsule Medical Branch gabapentin 0 Yes Univers (NEURONTIN) 5-23 ity of 100 mg 00:00: [place] capsule 00 Medical Branch ramipril 20160 Yes Univers (ALTACE) 10 5-14 ity of mg capsule 00:00: [place] Medical [facility] ramipril 20160 Yes Univers (ALTACE) 10 5-14 ity of mg capsule 00:00: Medical Branch ramipril 20160 Yes Univers (ALTACE) 10 5-14 ity of mg capsule 00:00: Medical Branch ramipril 20160 Yes Univers (ALTACE) 10 5-14 ity of mg capsule 00:00: Medical Branch ramipril 20160 Yes Univers (ALTACE) 10 5-14 ity of mg capsule 00:00: Medical Branch ramipril 20160 Yes Univers (ALTACE) 10 5-14 ity of mg capsule 00:00: [place] [facility] ramipril 20160 Yes Univers (ALTACE) 10 5-14 ity of mg capsule 00:00: Medical Branch ramipril 20160 Yes Univers (ALTACE) 10 5-14 ity of mg capsule 00:00: Medical Branch ONETOUCH 20160 Yes Univers ULTRA TEST 4-29 ity of strip 00:00: [place] [facility] ONETOUCH 20160 Yes Univers ULTRA TEST 4-29 ity of strip 00:00: Medical Branch ONETOUCH 20160 Yes Univers ULTRA TEST 4-29 ity of strip 00:00: [place] 00 Medical Branch ONETOUCH 0 Yes Univers ULTRA TEST 4-29 ity of strip 00:00: [place] 00 Medical Branch ONETOUCH 0 Yes Univers ULTRA TEST 4-29 ity of strip 00:00: [place] Medical Branch ONETOUCH 0 Yes Univers ULTRA TEST 4-29 ity of strip 00:00: [place] Medical Branch ONETOUCH 0 Yes Univers ULTRA TEST 4-29 ity of strip 00:00: [place] Medical [facility] ONETOUCH 0 Yes Univers ULTRA TEST 4-29 ity of strip 00:00: [place] [facility] hydrOXYzine 0 Yes Univer s (ATARAX) 50 4-12 ity of mg tablet 00:00: [place] [facility] pravastatin 20160 Yes Univer s (PRAVACHOL) 4-12 ity of 40 mg 00:00: [place] tablet 00 Medical Branch hydrOXYzine 0 Yes Univer s (ATARAX) 50 4-12 ity of mg tablet 00:00: [place] [facility] pravastatin 20160 Yes Univer s (PRAVACHOL) 4-12 ity of 40 mg 00:00: [place] tablet 00 Medical Branch hydrOXYzine 0 Yes Univer s (ATARAX) 50 4-12 ity of mg tablet 00:00: [place] [facility] pravastatin 20160 Yes Univer s (PRAVACHOL) 4-12 ity of 40 mg 00:00: [place] tablet 00 Medical Branch hydrOXYzine 0 Yes Univer s (ATARAX) 50 4-12 ity of mg tablet 00:00: [place] [facility] pravastatin 2016-0 Yes Univer s (PRAVACHOL) 4-12 ity of 40 mg 00:00: [place] tablet 00 Medical Branch hydrOXYzine 0 Yes Univer s (ATARAX) 50 4-12 ity of mg tablet 00:00: [place] [facility] pravastatin 2016-0 Yes Univer s (PRAVACHOL) 4-12 ity of 40 mg 00:00: [place] tablet 00 Medical Branch hydrOXYzine 0 Yes Univer s (ATARAX) 50 4-12 ity of mg tablet 00:00: [place] [facility] pravastatin 2016-0 Yes Univer s (PRAVACHOL) 4-12 ity of 40 mg 00:00: [place] tablet 00 Medical Branch hydrOXYzine Yes Univer s (ATARAX) 50 4-12 ity of mg tablet 00:00: [place] 00 Medical Branch pravastatin 0 Yes Univer s (PRAVACHOL) 4-12 ity of 40 mg 00:00: [place] tablet 00 Medical Branch hydrOXYzine Yes Univer s (ATARAX) 50 4-12 ity of mg tablet 00:00: [place] 00 Medical Branch pravastatin 0 Yes Univer s (PRAVACHOL) 4-12 ity of 40 mg 00:00: [place] tablet 00 Medical Branch HUMULIN Yes Univers 70/30 100 4-11 ity of unit/mL 00:00: [place] (70-30) 00 Medical suspension Branch HUMULIN Yes Univers 70/30 100 4-11 ity of unit/mL 00:00: [place] (-30) 00 Medical suspension Branch HUMULIN Yes Univers 70/30 100 4-11 ity of unit/mL 00:00: [place] (70-30) 00 Medical suspension Branch HUMULIN Yes Univers 70/30 100 4-11 ity of unit/mL 00:00: [place] (70-30) 00 Medical suspension Branch HUMULIN Yes Univers 70/30 100 4-11 ity of unit/mL 00:00: [place] (70-30) 00 Medical suspension Branch HUMULIN 0 Yes Univers 70/30 100 4-11 ity of unit/mL 00:00: [place] (30) Medical suspension Branch HUMULIN Yes Univers 70/30 100 4-11 ity of unit/mL 00:00: [place] (70-30) 00 Medical suspension Branch HUMULIN 0 Yes Univers 70/30 100 4-11 ity of unit/mL 00:00: [place] (70-30) 00 Medical suspension Branch rOPINIRole 0 Yes Univers (REQUIP) 4-01 ity of 0.25 mg 00:00: [place] tablet 00 Medical Branch rOPINIRole 0 Yes Univers (REQUIP) 4-01 ity of 0.25 mg 00:00: [place] tablet 00 Medical Branch rOPINIRole Yes Univers (REQUIP) 4-01 ity of 0.25 mg 00:00: [place] tablet 00 Medical Branch rOPINIRole 20160 Yes Univers (REQUIP) 4- ity of 0.25 mg 00:00: [place] tablet 00 Medical Branch rOPINIRole 2016-0 Yes Univers (REQUIP) 4- ity of 0.25 mg 00:00: [place] tablet 00 Medical Branch rOPINIRole 20160 Yes Univers (REQUIP) 4- ity of 0.25 mg 00:00: [place] tablet 00 Medical Branch rOPINIRole 2016-0 Yes Univers (REQUIP) 4- ity of 0.25 mg 00:00: [place] tablet 00 Medical Branch rOPINIRole 20160 Yes Univers (REQUIP) 4- ity of 0.25 mg 00:00: [place] tablet 00 Medical Branch Vital Signs Vital Name Observation Time Observation Value Comments Source Body temperature 2021-03-10 18:04:00 36.67 [facility] Respiratory rate 2021-03-10 18:04:00 18 /min [facility] weight 2021-03-10 18:04:00 68.947 kg Universi ty [facility] BMI 2021-03-10 18:04:00 18.02 kg[facility]m2 [facility] Oxygen saturation in 2021-03-10 18:04:00 97 /min University of Arterial blood by [facility] Pulse oximetry Branch Systolic blood 2021-03-07 18:01:00 108 mm[Hg] Univer sity of pressure [facility] Diastolic blood 2021-03-07 18:01:00 49 mm[Hg] Unive rsity of pressure [facility] Heart rate 2021-03-07 18:01:00 71 /min [facility] Body temperature 2021-03-07 18:01:00 36.78 [facility] Respiratory rate 2021-03-07 18:01:00 18 /min [facility] O[facility] in 2021-03-07 18:01:00 99 /min University of Arterial blood by [facility] Pulse oximetry Branch Body height 2021-03-06 18:14:00 195.6 cm Universi ty [facility] Body weight 2021-03-06 18:14:00 69.3 kg Universi ty [facility] BMI 2021-03-06 18:14:00 18.12 kg/m2 Universi ty of [place] [facility] Systolic blood 2021-03-06 23:00:00 136 mm[Hg] Univer sity of pressure [place] [facility] Diastolic blood 2021-03-06 23:00:00 71 mm[Hg] Unive rsity of pressure [place] [facility] [place] Heart rate 2021-03-06 22:45:00 70 /min Universi ty [facility] [place] [facility] Respiratory rate 2021-03-06 22:45:00 13 /min Univ ersity of [place] [facility] Oxygen saturation in 2021-03-06 22:45:00 99 /min University of Arterial blood by [place] [employer] Pulse oximetry Branch Body temperature 2021-03-06 22:43:00 36.22 [facility] ersity of [facility] Body height 2021-03-06 18:14:00 195.6 cm Universi ty of [place] [facility] [place] Body weight 2021-03-06 18:14:00 69.3 kg Universi ty [facility] [place] [facility] BMI 2021-03-06 18:14:00 18.12 kg/m2 Universi ty [facility] [place] [facility] Systolic blood 2021-02-26 15:47:00 93 mm[Hg] Univer sity of pressure [facility] Branch Diastolic blood 2021-02-26 15:47:00 51 mm[Hg] Unive rsity of pressure [place] [facility] Heart rate 2021-02-26 15:47:00 51 /min Universi ty of [place] [facility] Respiratory rate 2021-02-26 15:47:00 18 /min Univ ersity of [place] [facility] [place] Body weight 2021-02-26 15:47:00 90.719 kg Universi ty of [place] [facility] BMI 2021-02-26 15:47:00 23.72 kg/m2 Universi ty [facility] [place] [facility] Oxygen saturation in 2021-02-26 15:47:00 98 /min University of Arterial blood by [place] [employer] Pulse oximetry Branch Procedures Procedure Date / Time Performing Clinician Source Performed CONSENT/REFUSAL FOR 2021-03-10 17:48:54 Doctor Unassigned, No Un [facility] DIAGNOSIS AND TREATMENT Name Medical Branch POCT GLUCOSE (AUTOMATED) 2021-03-07 16:49:00 [facility] POCT GLUCOSE (AUTOMATED) 2021-03-07 16:49:00 [facility] POCT GLUCOSE (AUTOMATED) 2021-03-07 06:05:00 [facility] POCT GLUCOSE (AUTOMATED) 2021-03-07 06:05:00 [facility] POCT GLUCOSE (AUTOMATED) 2021-03-07 03:23:00 [facility] POCT GLUCOSE (AUTOMATED) 2021-03-07 03:23:00 [facility] TRANSURETHRAL BLADDER 2021-03-06 21:20:00 Leopoldo Constantino Un iversity [facility] TUMOR RESECTION [facility] TRANSURETHRAL BLADDER 2021-03-06 21:20:00 [facility] POCT GLUCOSE (AUTOMATED) 2021-03-06 18:44:00 [facility] POCT GLUCOSE (AUTOMATED) 2021-03-06 18:44:00 [facility] ASSIGNMENT OF BENEFITS 2021-03-06 17:46:44 Doctor Unassigned, No [facility] Name [facility] CONSENT/REFUSAL FOR 2021-01-22 21:54:28 [facility] Encounters Start End Encounter Admission Attending Care Care Encounter Source Date/Time Date/Time Type Type Clinicians Facility Department ID 2021-03-19 2021-03-19 Outpatient R VIRA [facility] [id number] Univers 09:45:00 09:45:00 LEOPOLDO [id number] [facility] 2021-03-19 2021-03-19 Outpatient R VIRA [facility] [id number] Univers 09:45:00 09:45:00 LEOPOLDO [facility] 2021-03-12 2021-03-12 Outpatient R EVE [facility] [id number] Univers 16:30:00 16:30:00 MILENA [facility] 2021-03-12 2021-03-12 Outpatient R EVE [facility] [id number] Univers 15:30:00 15:30:00 [facility] [id number] [facility] 2021-03-12 2021-03-12 Outpatient R [facility] [id number] Univers 15:30:00 15:30:00 ity [facility] 2021-03-12 2021-03-12 Outpatient R [facility] [id number] Univers 10:00:00 10:00:[facility] 2021-03-10 2021-03-10 Emergency X FLORES, RUST ERT [id number] Univers 12:09:00 13:08:00 ROB ity [facility] 2021-03-10 2021-03-10 [facility] [id number] Univers 12:09:00 13:08:00 Rob YIP [id number] i ty [facility] [id number] [facility] [id number] [facility] 084 Branch 2021-03-06 2021-03-07 [facility] [id number] Univers 11:57:00 15:47:00 LEOPOLDO burgos [facility] 2021-03-06 2021-03-07 Hospital NAE Constantino [id number] Univers 11:57:00 15:47:00 Encounter Leopoldo ZAVALA 350.1.13.10 ity of [facility] 4.2.7.2.686 [place] as [phone] [facility] [address] 2021-03-06 2021-03-06 Surgery NAE Constantino [id number] Univers 14:53:00 17:10:00 Leopoldo ZAVALA 350.1.13.10 ity of [facility] 4.2.7.2.686 [place] [phone] [facility] [address] 2021-03-06 2021-03-06 Orders Doctor GUERIN [id number] Univers 00:00:00 00:00:00 Only Unassigned, SALLY 350.1.13.10 ity of [place] [facility] 4.2.7.2.686 [place] [phone] [facility] [address] 2021-03-05 2021-03-05 [facility]phone [facility] [id number] Univers 00:00:00 00:00:00 Leopoldo Coles [facility] 350.1.13.10 ity of [place] 4.2.7.2.686 [facility] - [phone] Med [address] 2021-02-26 2021-02-26 Office [facility] [id number] Univers 10:38:42 11:08:42 Visit Leopoldo Coles [facility] 350.1.13.10 ity of [place] 4.2.7.2.686 [facility] - [phone] Med [address] 2021-02-26 2021-02-26 [facility] [id number] Univers 10:30:00 10:30:00 LEOPOLDO [id number] [facility] 2021-02-26 2021-02-26 Outpatient Lucho CONSTANTINO [facility] [id number] Univers 10:30:00 10:30:00 [facility] 2021-02-05 2021-02-05 Outpatient R NICO [facility] [id number] Univers 09:30:00 09:30:00 [facility] [id number] [facility] 2021-02-05 2021-02-05 Outpatient R NICO [facility] [id number] Univers 09:30:00 09:30:00 [facility] 2021-01-29 2021-01-29 [facility] [id number] Univers 09:45:00 09:45:00 [facility] 2021-01-22 2021-01-22 Emergency X RUST ERT [id number] Univers 16:56:00 16:56:00 [facility] 2021-01-22 2021-01-22 Orders Doctor TRUONG [id number] Univers 00:00:00 00:00:00 Only Unassigned, SALLY 350.1.13.10 ity of [place] [facility] 4.2.7.2.686 [facility] [id number] [address] Results Test Description Test Time Test Comments Results Result Comments Source POCT GLUCOSE (AUTOMATED) 2021-03-07 16:52:59 Test Item Value Reference Range Interpretation Comme nts POCT GLU (test code = 3857699461) 177 mg/dL 70-110 H Lab Interpretation (test code = 77339-6) [facility]2021-03-07 16:52:59 Test Item Value Reference Range Interpretation Comments POCT GLU (test code = [id number]) 177 mg/dL 70-110 H Lab Interpretation (test code = Abnormal 34536-7) [facility]2021-03-07 06:06:57 Test Item Value Reference Range Interpretation Comments POCT GLU (test code = [id number]) 263 mg/dL 70-110 H Lab Interpretation (test code = Abnormal 01785-6) [facility] GLUCOSE (AUTOMATED)2021-03-07 06:06:57 Test Item Value Reference Range Interpretation Comments POCT GLU (test code = [id number]) 263 mg/dL 70-110 H Lab Interpretation (test code = Abnormal 27642-8) [facility] GLUCOSE (AUTOMATED)2021-03-07 03:26:00 Test Item Value Reference Range Interpretation Comments POCT GLU (test code = [id number]) 363 mg/dL 70-110 H Lab Interpretation (test code = Abnormal 33987-0) [facility] GLUCOSE (AUTOMATED)2021-03-07 03:26:00 Test Item Value Reference Range Interpretation Comments POCT GLU (test code = [id number]) 363 mg/dL 70-110 H Lab Interpretation (test code = Abnormal 80003-3) [facility] GLUCOSE (AUTOMATED)2021-03-06 18:45:36 Test Item Value Reference Range Interpretation Comments POCT GLU (test code = 143 mg/dL 70-110 H Notifi ed Provider [id number]) Lab Interpretation (test Abnormal code = 73340-4) [facility] GLUCOSE (AUTOMATED)2021-03-06 18:45:36 Test Item Value Reference Range Interpretation Comments POCT GLU (test code = 143 mg/dL 70-110 H Notifi ed Provider [id number]) Lab Interpretation (test Abnormal code = 76551-7) [facility]
[2021-03-11 16:17] LABS: Urine Blood 3+ (Negative); Urine Glucose Negative (Negative); Urine Protein 2+ (Negative); Urine Specific Gravity >=1.030 (1.005-1.030)
[2021-03-11] MEDS ORDERED: CEFTRIAXONE 1000 MG/VIAL ONE (16:21)
[2021-03-11] MEDS ORDERED: NA CHLORIDE 0.9% 50 ML ONE (16:22)
[2021-03-11 16:35] LABS: Absolute Lymphocytes (CBC) 0.8 K/uL (0.7-4.9); Basophils % 0.3 % (0-1.3); Lymphocytes % 5.2 % (15.3-44.8); MPV 9.6 fL (7.6-11.3)
[2021-03-11 16:45] LABS: BUN Blood Urea Nitrogen 32 mg/dL (7-18); Bicarbonate 26 mmol/L (21-32); Glucose Level 163 mg/dL (74-106); Lipase 95 U/L (73-393); Potassium 3.8 mmol/L (3.5-5.1); Sodium Level 141 mmol/L (136-145); Urine Bacteria >50 /HPF (NONE SEEN); Urine Mucus 1+ /HPF (NONE SEEN); Urine RBC >50 /HPF (NONE SEEN)
[2021-03-11 16:53] LABS: ALT/SGPT 15 U/L (12-78); AST/SGOT 14 U/L (15-37); Alkaline Phosphatase 54 U/L (45-117); Amylase 42 U/L (25-115); Bilirubin Direct 0.3 mg/dL (0-0.2); Bilirubin Total 0.7 mg/dL (0.2-1.0); Creatine Phosphokinase 46 U/L (39-308); Protein, Total 6.3 g/dL (6.4-8.2); Troponin (Emerg Dept Use Only) < 0.02 ng/mL (0.0-0.045)
[2021-03-11] MEDS ORDERED: NA CHLORIDE 0.9% 2,000 ML ONE (16:53)
--- NOTE | 2021-03-11 16:54 | RAD REPORT ---
EXAM DESCRIPTION: CT - Head Brain Wo Cont - 03/11/2021 4:46 pm CLINICAL HISTORY: MENTAL STATUS CHANGE COMPARISON: No comparisonsNo comparisons TECHNIQUE: All CT scans are performed using dose optimization technique as appropriate and may inclu de automated exposure control or mA/KV adjustment according to patient size. FINDINGS: No intracranial hemorrhage, hydrocephalus or extra-axial fluid collection.No areas of brai n edema or evidence of midline shift. Cavum septum pellucidum. Chronic small vessel ischemic changes The paranasal sinuses and mastoids are clear. The calvarium is intact. IMPRESSION: No acute intracranial abnormality.
[2021-03-11 16:55] LABS: CKMB Creatine Kinase MB < 1.0 ng/mL (1.0-3.6)
--- NOTE | 2021-03-11 16:58 | RAD REPORT ---
EXAM DESCRIPTION: CTAbdomen Pelvis W Contrast - 03/11/2021 4:46 pm CLINICAL HISTORY: FEVER COMPARISON: Lumbar Spine Wo Con dated 10/09/2018; Abdomen Pelvis Wo Contrast dated 06/19/2018 TECHNIQUE: CT of the abdomen and pelvis was performed. All CT scans are performed using dose optimization technique as appropriate and may include automated exposure control or mA/KV adjustment according to patient size. FINDINGS: Lower chest: Multi-vessel coronary artery disease. Liver: No acute abnormality or suspicious lesions. Biliary: No biliary ductal dilatation. Stomach: No significant focal abnormality. Duodenum: No significant focal abnormality. Pancreas: No significant abnormality. Spleen: No significant abnormality. Adrenal: Bilateral adrenal thickening without discrete mass. Kidney/ureter: No hydronephrosis. No renal calculi. Too small to characterize and/or benign appearing renal lesions are noted. Retroperitoneum: No retroperitoneal adenopathy. Vascular: Atherosclerosis without aneurysm. Bowel: No significant focal abnormality. Peritoneum: No ascites or free air. Bladder: Mild circumferential bladder wall thickening with small diverticula reflecting chronic bladd er outlet obstruction. Reproductive: Median lobe hypertrophy of the prostate. Bones: No acute fracture. Multilevel degenerative changes are present in the spine. Several small lyt ic foci within the axial skeleton are unchanged since 2019 and of doubtful clinical significance. Other: n/a IMPRESSION: No acute intra-abdominal or pelvic finding. Incidental findings as noted above.
[2021-03-11 17:10] LABS: Protime INR 1.08
[2021-03-11 17:12] LABS: SARS-COV-2 RT PCR NEGATIVE (NEGATIVE)
--- NOTE | 2021-03-11 17:32 | RAD REPORT ---
EXAM DESCRIPTION: RAD - Chest Single View - 03/11/2021 5:00 pm CLINICAL HISTORY: FEVER COMPARISON: Chest Single View dated 12/29/2017; Chest Pa And Lat (2 Views) dated 05/05/2017 FINDINGS: Lines: None. Lungs: No evidence of edema or pneumonia. Pleural: No significant pleural effusions or pneumothorax. Cardiac: The heart size is within normal limits. Bones: No acute fractures. Other: IMPRESSION: No acute cardiopulmonary disease.
[2021-03-11] MEDS ORDERED: MORPHINE 4 MG/ML SYR ONE (17:49)
[2021-03-11] MEDS ORDERED: ONDANSETRON 4 MG/2 ML VIAL ONE (17:49)
--- NOTE | 2021-03-11 19:46 | ER ---
Nurse's Notes [facility] Name: Bry Hickey III Age: 75 yrs Sex: Male : 1945 Arrival Date: 03/11/2021 Time: 15:57 Bed 8 Private MD: Diagnosis: UTI/ Urinary tract infection, site not specified Presentation: 03/11 16:20 Chief complaint: EMS states: Pt. arrives via EMS due to fever, loss of smell and taste, jt3 and generalized weakness. Pt. had a catheter removed yesterday from [facility]. Pt. also states he has the urge to urinate. Pt. on arrival has a fever of 102.6F. Pt. is alert, but seems slow to answer questions and confused. Airway is patent. Past medical hx of HTN, DM, and chronic back pain. Coronavirus screen: Vaccine status: Patient reports receiving the 2nd dose of the covid vaccine. Ebola Screen: Patient negative for fever greater than or equal to 101.5 degrees Fahrenheit, and additional compatible Ebola Virus Disease symptoms Patient denies exposure to infectious person. Patient denies travel to an Ebola-affected area in the 21 days before illness onset. Initial Sepsis Screen: Does the patient meet any 2 criteria? Temp <36.0*C (96.8*F)) or > 38.3*C (100.9*F). Does the patient have a suspected source of infection? Yes: Dysuria/Frequency/Urgency/UTI. Risk Assessment: Do you want to hurt yourself or someone else? Patient reports no desire to harm self or others. Onset of symptoms was March 11, 2021. 16:20 Method Of Arrival: EMS: [facility] jt3 16:20 Acuity: DOMINIQUE 3 jt3 16:44 Chief complaint:. jt3 Triage Assessment: 16:29 General: Appears in no apparent distress. Behavior is calm, cooperative. jt3 Historical: - Allergies: 16:28 unknown antibiotic; jt3 16:29 No Known Allergies; [facility] - Home Meds: 16:28 aspirin 81 mg Oral chew 1 tab once daily [Active]; gabapentin 600 mg Oral tab 1 tab jt3 twice a day [Active]; ramipril 10 mg Oral cap 1 cap once daily [Active]; pravastatin 40 mg Oral tab 1 tab once daily [Active]; 16:29 Novolin N Sub-Q [Active]; hydrocodone-acetaminophen Oral [Active]; jt3 - PMHx: 16:28 Diabetes - IDDM; High Cholesterol; Hypertension; PERIPHERAL NEUROPATHY; restless leg jt3 syndrome; - Immunization history:: Adult Immunizations up to date, Adult Immunizations up to date, Client reports receiving the 2nd dose of the Covid vaccine, Last tetanus immunization: unknown. - Social history:: Smoking status: Patient denies any tobacco usage or history of. Smoking status: unknown. Screenin:32 Abuse screen: Denies threats or abuse. Denies injuries from another. Nutritional jh6 screening: No deficits noted. Tuberculosis screening: No symptoms or risk factors identified. Fall Risk None identified. Sepsis Screening: . Infection: Patient has suspected or documented infection. SIRS - Systemic Inflammatory Response Syndrome: 2 or more indicates positive screen: [temperature greater than or equal to 100.9F or less than or equal to 96.8F]. Assessment: 16:27 General: Appears in no apparent distress. uncomfortable, unkempt, Behavior is calm, jh6 cooperative. Pain: Complains of pain in abdomen Pain does not radiate. Pain currently is 5 out of 10 on a pain scale. Quality of pain is described as crampy, shooting, Pain began 1 day ago. Is continuous, Alleviated by nothing. Aggravated by voiding Noted to be resistant to movement, Also complains of fever and body aches. pt also reports that he cannot taste or smell. : Reports burning with urination, pain urgency, since started yesterday when [place] was removed. 17:20 Reassessment: Patient and/or family updated on plan of care and expected duration. Pain jh6 level reassessed. PT ALERT, WITH FAMILY AT BEDSIDE. PT ABLE TO USE URINAL ON OWN AND REPORTS BURNING WITH VOIDING.. 18:00 Pain: Complains of pain in back Quality of pain is described as shooting. jh6 18:48 Reassessment: Patient appears in no apparent distress at this time. Pain: Denies pain. jh6 Vital Signs: 16:20 BP 105 / 57; Pulse 98; Resp 18; Temp 102.6; Pulse Ox 95% on R/A; Weight 72.57 kg; jt3 Height 6 ft. 5 in. (195.58 cm); 16:31 BP 125 / 69; Pulse 80; Resp 18; Pulse Ox 98% on 2 lpm NC; jh6 18:04 BP 128 / 48; Pulse 81; Resp 20; Temp 98.5(O); Pulse Ox 95% on 2 lpm NC; jh6 20:04 BP 109 / 83; Pulse 75; Resp 18; Temp 98.6(O); Pulse Ox 100% ; Pain 0/10; bs2 16:20 Body Mass Index 18.97 (72.57 kg, 195.58 cm) jt3 Vitals: 16:31 Cardiac Rhythm Assessment Regular Sinus rhythm. jh6 [place] Coma Score: 16:31 Eye Response: spontaneous(4). Verbal Response: oriented(5). Motor Response: obeys jh6 commands(6). Total: 15. ED Course: 15:57 Patient arrived in ED. jt3 15:58 Fabian Kwon NP is PHCP. pm1 15:58 Ross Hester MD is Attending Physician. pm1 16:10 Patient has correct armband on for positive identification. Bed in low position. Call [facility] light in reach. Side rails up X2. pvc monitor on. Pulse ox on. Notified ED physician of. Noise minimized. 16:10 Initial lab(s) drawn, Second set of blood cultures drawn Urine collected: clean catch jh6 specimen, sediment noted, COVID swab sent to lab. Flu and/or RSV swab sent to lab. 16:19 Pamela Dodson, RN is Primary Nurse. jh6 16:28 Triage completed. jt3 16:29 Arm band placed on right wrist. jt3 16:39 X-ray(s) taken. jh6 16:39 Inserted saline lock: 20 gauge in right forearm, using aseptic technique. Oxygen jh6 administration via nasal cannula \T\ 2L/min Response to oxygen therapy: symptoms improved. 16:46 CT Abd/Pelvis - IV Contrast Only In Process Unspecified. EDMS 16:46 CT Head Brain wo Cont In Process Unspecified. EDMS 17:00 Chest Single View XRAY In Process Unspecified. EDMS 20:03 No provider procedures requiring assistance completed. IV discontinued, intact, bs2 bleeding controlled, No redness/swelling at site. 20:06 Amylase, Serum Sent. bs2 20:06 Basic Metabolic Panel Sent. bs2 20:06 Blood Culture Adult (2) Sent. bs2 20:06 CBC with Diff Sent. bs2 20:06 CPK Sent. bs2 20:06 Ckmb Sent. bs2 20:06 LFT's Sent. bs2 20:06 Lactate Sent. bs2 20:07 Urine Culture Sent. bs2 Administered Medications: 16:15 Drug: Rocephin (cefTRIAXone) 1 grams Route: IV; Rate: calculated rate; Site: right [facility] forearm; 17:48 Follow up: Response: No adverse reaction 6 20:05 Follow up: IV Status: Completed infusion bs2 17:55 Drug: morphine 4 mg Route: IVP; Site: right antecubital; [facility] 20:05 Follow up: Response: No adverse reaction bs2 17:55 Drug: Zofran (Ondansetron) 4 mg Route: IVP; Site: right antecubital; [facility] 20:05 Follow up: Response: No adverse reaction bs2 19:25 Drug: NS 0.9% (30 ml/kg) 30 ml/kg Route: IV; Rate: bolus; Site: left antecubital; [facility] 20:06 Follow up: IV Status: Completed infusion bs2 Output: 16:31 Urine: 20ml (Voided); Total: 20ml. [facility] Outcome: 19:46 Discharge ordered by MD. pm1 20:03 Discharged to home via wheelchair, with family. bs2 20:03 Condition: improved 20:03 Discharge instructions given to patient, family, Instructed on discharge instructions, follow up and referral plans. medication usage, Demonstrated understanding of instructions, follow-up care, medications, Prescriptions given X 1. 20:05 Patient left the ED. bs2 Signatures: Dispatcher [employer] EDMS Fabian Kwon NP WAREHOUSE ORDER FILLER pm1 Tete Peña, RN RN bs2 Master Machado RN HAYDER jt3 Pamela Dodson RN RN 6 Corrections: (The following items were deleted from the chart) 15:58 15:58 Chief complaint: jt3 jt3 16:31 16:29 Allergies: unknown antibiotic; [place] [id number] 16:31 16:29 PMHx: Diabetes - IDDM; [place] [id number] 16:31 16:29 PMHx: Hypertension; [place] [id number] 16:31 16:29 PMHx: High Cholesterol; [place] [id number] 16:31 16:29 PMHx: PERIPHERAL NEUROPATHY; 6 6 16:31 16:29 PMHx: restless leg syndrome; [facility] jh 16:45 16:20 Chief complaint: EMS states: Pt. arrives via EMS due to fever, loss of smell and jt3 taste, and generalized weakness. Pt. had a catheter removed yesterday from [facility]. Pt. also states he has the urge to urinate. Pt. on arrival has a fever of 102.6F. Pt. is alert and oriented x4 and airway is patent. Past medical hx of HTN, DM, and chronic back pain. jt3
--- NOTE | 2021-03-11 19:47 | EDPHYS ---
Physician Documentation [facility] Name: Bry Hickey III Age: 75 yrs Sex: Male : 1945 Arrival Date: 03/11/2021 Time: 15:57 Bed 8 Private MD: ED Physician Ross Hester HPI: 03/11 16:19 This 75 yrs old Male presents to ER via EMS with complaints of Fever. pm1 16:19 Onset: The symptoms/episode began/occurred last night. Modifying factors: Patient with pm1 riddle catheter removed yesterday at [facility] ER. Patient with mass in bladder I was removed. Patient was discharged home with Riddle catheter. He was complaining of pain onset yesterday presented to [facility] ER. They contacted urologist Kimani who okayed removal of Riddle catheter. Patient without any difficulties urinating but reports onset of fever last night. Associated signs and symptoms: Pertinent positives: Chronic back pain, Pertinent negatives: abdominal pain, chest pain, cough, shortness of breath. Severity of symptoms: in the emergency department the symptoms are worse. The patient has been recently seen by a physician: yesterday, [facility] ER for request removal of Riddle catheter due to pain in discomfort in groin area. Historical: - Allergies: 16:28 unknown antibiotic; jt3 16:29 No Known Allergies; [address] Meds: 16:28 aspirin 81 mg Oral chew 1 tab once daily [Active]; gabapentin 600 mg Oral tab 1 tab jt3 twice a day [Active]; ramipril 10 mg Oral cap 1 cap once daily [Active]; pravastatin 40 mg Oral tab 1 tab once daily [Active]; 16:29 Novolin N Sub-Q [Active]; hydrocodone-acetaminophen Oral [Active]; jt3 - PMHx: 16:28 Diabetes - IDDM; High Cholesterol; Hypertension; PERIPHERAL NEUROPATHY; restless leg jt3 syndrome; - Immunization history:: Adult Immunizations up to date, Adult Immunizations up to date, Client reports receiving the 2nd dose of the Covid vaccine, Last tetanus immunization: unknown. - Social history:: Smoking status: Patient denies any tobacco usage or history of. Smoking status: unknown. ROS: 16:32 Cardiovascular: Negative for chest pain, palpitations, and edema, Respiratory: Negative pm1 for shortness of breath, cough, wheezing, and pleuritic chest pain, Abdomen/GI: Negative for abdominal pain, nausea, vomiting, diarrhea, and constipation, : Negative for injury, bleeding, discharge, and swelling, MS/Extremity: Negative for injury and deformity. 16:32 Skin: Negative for injury, rash, and discoloration, Neuro: Negative for headache, weakness, numbness, tingling, and seizure. 16:32 Constitutional: Positive for fever. 16:32 Back: Positive for chronic low back pain. 16:32 All other systems are negative. Exam: 16:32 Constitutional: This is a well developed, well nourished patient who is awake, alert, pm1 and in no acute distress. Head/Face: Normocephalic, atraumatic. 16:32 Back: No spinal tenderness. No costovertebral tenderness. Full range of motion. Skin: Warm, dry with normal turgor. Normal color with no rashes, no lesions, and no evidence of cellulitis. MS/ Extremity: Pulses equal, no cyanosis. Neurovascular intact. Full, normal range of motion. 16:32 Eyes: Exam is negative for acute changes, Extraocular movements: intact throughout, Conjunctiva: no acute changes, no injection. 16:32 Cardiovascular: Exam negative for acute changes, Rate: normal, Rhythm: regular, Pulses: no pulse deficits are appreciated. 16:32 Respiratory: Exam negative for acute changes, respiratory distress, shortness of breath, Breath sounds: are clear throughout. 16:32 Abdomen/GI: Inspection: abdomen appears normal, Bowel sounds: normal, Palpation: abdomen is soft and non-tender, in all quadrants. 16:32 : Male external genitalia: normal, no discharge, no erythema, no swelling. 16:32 Neuro: Exam negative for acute changes, Orientation: is normal, Mentation: is normal, Motor: is normal, moves all fours. Vital Signs: 16:20 BP 105 / 57; Pulse 98; Resp 18; Temp 102.6; Pulse Ox 95% on R/A; Weight 72.57 kg; jt3 Height 6 ft. 5 in. (195.58 cm); 16:31 BP 125 / 69; Pulse 80; Resp 18; Pulse Ox 98% on 2 lpm NC; jh6 18:04 BP 128 / 48; Pulse 81; Resp 20; Temp 98.5(O); Pulse Ox 95% on 2 lpm NC; jh6 20:04 BP 109 / 83; Pulse 75; Resp 18; Temp 98.6(O); Pulse Ox 100% ; Pain 0/10; bs2 16:20 Body Mass Index 18.97 (72.57 kg, 195.58 cm) jt3 Jamila Coma Score: 16:31 Eye Response: spontaneous(4). Verbal Response: oriented(5). Motor Response: obeys jh6 commands(6). Total: 15. MDM: 15:59 Patient medically screened. pm1 16:58 ED course: Patient daughter present at bedside and reports the patient has no mental pm1 status change. He is fully alert and aware and this is his baseline, when he is not feeling well he does not want to talk. 17:41 ED course: Patient requesting medications for his chronic back pain. pm1 19:41 Data reviewed: vital signs. Data interpreted: Pulse oximetry: on room air is 95 %. pm1 Interpretation: normal. 19:41 Counseling: I had a detailed discussion with the patient and/or guardian regarding: the pm1 historical points, exam findings, and any diagnostic results supporting the discharge/admit diagnosis, lab results, radiology results, the need for further work-up and treatment in the hospital. 19:41 Refusal of service: The patient/guardian displays adequate decision making capability pm1 and despite a detailed discussion of alternatives, benefits, risks, and consequences refuses: Admission to the hospital for further work-up and treatment, Informed the patient that I would like to keep him but he would like to go home. Instructed the patient the importance of taking antibiotics and to return to the ER for worsening of condition and to return at anytime for admission. 03/11 16:07 Order name: Amylase, Serum pm1 03/11 16:07 Order name: Basic Metabolic Panel pm1 03/11 16:07 Order name: Blood Culture Adult (2) pm1 03/11 16:07 Order name: CBC with Diff pm1 03/11 16:07 Order name: CPK pm1 03/11 16:07 Order name: Ckmb pm1 03/11 16:07 Order name: LFT's pm1 03/11 16:07 Order name: Lactate pm1 03/11 16:07 Order name: Lipase; Complete Time: 17:15 pm1 03/11 16:07 Order name: Procalcitonin; Complete Time: 17:15 pm1 03/11 16:07 Order name: Protime (+inr); Complete Time: 17:15 pm1 03/11 16:07 Order name: Ptt, Activated; Complete Time: 17:15 pm1 03/11 16:07 Order name: Troponin (emerg Dept Use Only); Complete Time: 17:15 pm1 03/11 16:07 Order name: Urine Culture pm1 03/11 16:07 Order name: Urine Microscopic Only; Complete Time: 16:49 pm1 03/11 16:07 Order name: Chest Single View XRAY; Complete Time: 17:39 pm1 03/11 16:07 Order name: Amylase; Complete Time: 17:15 EDMS 03/11 16:07 Order name: Basic Metabolic Panel; Complete Time: 17:15 EDMS 03/11 16:08 Order name: Blood Culture EDMS 03/11 16:08 Order name: CBC with Automated Diff; Complete Time: 16:49 EDMS 03/11 16:08 Order name: Creatine Phosphokinase; Complete Time: 17:15 EDMS 03/11 16:08 Order name: CKMB Creatine Kinase MB; Complete Time: 17:15 EDMS 03/11 16:08 Order name: Liver (Hepatic) Function; Complete Time: 17:15 EDMS 03/11 16:08 Order name: Lactate; Complete Time: 17:15 EDMS 03/11 16:09 Order name: CT Abd/Pelvis - IV Contrast Only; Complete Time: 17:15 pm1 03/11 16:09 Order name: CT Head Brain wo Cont; Complete Time: 17:15 pm1 03/11 16:17 Order name: Urine Dipstick-Ancillary; Complete Time: 16:18 EDMS 03/11 16:31 Order name: COVID-19/FLU A+B; Complete Time: 17:15 EDMS 03/11 16:07 Order name: Accucheck; Complete Time: 20:06 pm1 03/11 16:07 Order name: Cardiac monitoring; Complete Time: 20:06 pm1 03/11 16:07 Order name: EKG - Nurse/Tech; Complete Time: 20:06 pm1 03/11 16:07 Order name: IV Saline Lock - Large Bore; Complete Time: 20:06 pm1 03/11 16:07 Order name: Labs collected and sent; Complete Time: 20:06 pm1 03/11 16:07 Order name: O2 Per Protocol; Complete Time: 20:06 pm1 03/11 16:07 Order name: O2 Sat Monitoring; Complete Time: 20:06 pm1 03/11 16:07 Order name: Urine Dipstick-Ancillary (obtain specimen); Complete Time: 20:06 pm1 Administered Medications: 16:15 Drug: Rocephin (cefTRIAXone) 1 grams Route: IV; Rate: calculated rate; Site: right [facility] forearm; 17:48 Follow up: Response: No adverse reaction 6 20:05 Follow up: IV Status: Completed infusion bs2 17:55 Drug: morphine 4 mg Route: IVP; Site: right antecubital; [facility] 20:05 Follow up: Response: No adverse reaction bs2 17:55 Drug: Zofran (Ondansetron) 4 mg Route: IVP; Site: right antecubital; [facility] 20:05 Follow up: Response: No adverse reaction bs2 19:25 Drug: NS 0.9% (30 ml/kg) 30 ml/kg Route: IV; Rate: bolus; Site: left antecubital; [facility] 20:06 Follow up: IV Status: Completed infusion bs2 Disposition: 03/12 06:00 Co-signature as Attending Physician, Ross Hester MD I agree with the assessment and artemio plan of care. Disposition Summary: 03/11/21 19:46 Discharge Ordered Location: Home pm1 Problem: new pm1 Symptoms: have improved pm1 Condition: Stable pm1 Diagnosis - UTI/ Urinary tract infection, site not specified pm1 Followup: pm1 - With: Emergency Department - When: As needed - Reason: Worsening of condition Followup: pm1 - With: Private Physician - When: 2 - 3 days - Reason: Recheck today's complaints, Continuance of care, Re-evaluation by your physician Discharge Instructions: - Discharge Summary Sheet pm1 - Urinary Tract Infection, Adult pm1 Forms: - Medication Reconciliation Form pm1 - Thank You Letter pm1 - Antibiotic Education pm1 - Prescription Opioid Use pm1 Prescriptions: - cefpodoxime 200 mg Oral Tablet - take 1 tablet by ORAL route every 12 hours for 10 days with food; 20 tablet; pm1 Refills: 0, Product Selection Permitted Signatures: Dispatcher [employer] EDMS Ross Hester MD MD cha Marinas, Patrick, MANAGER PART MANAGER PART pm1 Master Machado RN RN jt3 Pamela Dodson RN RN jh6 Tete Peña RN bs2 Corrections: (The following items were deleted from the chart) 03/11 16:31 16:08 CORONAVIRUS+MR.LAB.BRZ ordered. EDMS EDMS 16: 16:29 Allergies: unknown antibiotic; [place] [id number] 16: 16:29 PMHx: Diabetes - IDDM; [place] [id number] 16: 16:29 PMHx: Hypertension; [place] [id number] 16:31 16:29 PMHx: High Cholesterol; [place] [id number] 16:31 16:29 PMHx: PERIPHERAL NEUROPATHY; [place] [id number] 16:31 16:29 PMHx: restless leg syndrome; [place] [id number] 16:32 16:08 Influenza Screen (A \T\ B)+BA.LAB.BRZ ordered. EDMS EDMS
[2021-03-11 20:16] VITALS: BP 109/83; TEMP 98.6; O2SAT 100
== END 2021-03-11 20:05 | disposition home or self-care (01) ==
LOC: ER 15:55
DX: N39.0 Urinary tract infection, site not specified (principal); I10 Essential (primary) hypertension; E11.9 Type 2 diabetes mellitus without complications; Z79.82 Long term (current) use of aspirin; Z79.4 Long term (current) use of insulin; Z20.822 Contact with and (suspected) exposure to COVID-19
CPT/HCPCS: 93005; 87040 ×2; 87088; 85025; 87086; 80048; 36415; 82150; 82550; 87205 ×3; 85610; 82565; 80076; 83605; 85730; 87077; 87186; 84484; 82553; 83690; 84145; 0240U; 70450; 74177; 71045; 99285; Q9967; J7030; J2405; 81003; 81015

== ENCOUNTER 2021-04-17 19:15 | Inpatient (IN) | payer OTHER ==
--- OUTSIDE RECORDS SUMMARY | 2021-04-17 19:19 | XMS REPORT | Continuity of Care Document ---
:1945 Author Organization [facility] t Address [address] [place] [address] Care Team Providers Name Role Phone JOHN Primary Care Physician Unavailable Sharyn CONSTANTINO Attending Clinician Unavailable Lillian MILLER Attending Clinician Unavailable Sharyn Constantino MD Attending Clinician Nayeli PRADO Attending Clinician Unavailable KLAUS Attending Clinician Unavailable Klaus POOL Attending Clinician Doctor Unassigned, Name Attending Clinician Unavailable NICO Attending Clinician Unavailable Sharyn CONSTANTINO Admitting Clinician Unavailable Sharyn Constantino MD Admitting Clinician Payers Payer Name Policy Type Policy Number Effective Date Expiration Date Dwight DACOSTA MANAGED [id number] 2020 MEDICARE PPO-JUAN 00:00:00 MEDICARE PART A [id number] 2021 \T\ B 00:00:00 Problems Condition Condition Condition Status Onset Resolution Last Treating Co mments Source Name Details Category Date Date Treatment Clinician Date Bladder Bladder Disease Active 2020-04 Overview: Univ ers mass mass 04-28 Formattin ity of 00:00: g of this note Medical might be Branch different from the original. 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 Added automatic ally from request for surgery [id number] No known No known Disease Unive rs active active ity of problems problems [facility] Allergies, Adverse Reactions, Alerts Allergy Allergy Status Severity Reaction(s) Onset Inactive Treating Comm ents Source Name Type Date Date Clinician NO KNOWN Drug Active Univers ALLERGIE Class ity of S [facility] Social History Social Habit Start Date Stop Date Quantity Comments Source History of Chews Tobacco [place] of tobacco use [facility] Exposure to Not sure University of SARS-CoV-2 [facility] (event) [place] Alcohol intake 2021-03-10 2021-03-10 0 /d University of 00:00:00 00:00:00 [facility] Tobacco use and 2015-10-10 2015-10-10 Current user Univers ity of exposure 00:00:00 00:00:00 [facility] Sex [birth year] Universit y of 00:00:00 00:00:00 [facility] Smoking Status Start Date Stop Date Source Former smoker 2015-10-10 00:00:00 2015-10-10 00:00:00 Universi ty [facility] Medications Ordered Filled Start Stop Current Ordering [...] mg Cap 1-10 mouth. ity of 15:47: [address] HYDROcodone 2020-04 Yes 1{tbl} Take 1 Un tamiko -acetaminop 1-10 tablet by ity of hen 5-325 15:47: mouth 3 [place] mg tablet 50 (three) Medical times Branch daily. aspirin 81 2020-04 Yes Take by Uni vers mg Cap 1-10 mouth. ity of 15:47: [address] HYDROcodone 2020-04 Yes 1{tbl} Take 1 Un tamiko -acetaminop 1-10 tablet by ity of hen 5-325 15:47: mouth 3 [place] mg tablet 50 (three) Medical times Branch daily. aspirin 81 2020-04 Yes Take by Uni vers mg Cap 1-10 mouth. ity of 15:47: [address] HYDROcodone 2020-04 Yes 1{tbl} Take 1 Un tamiko -acetaminop 1-10 tablet by ity of hen 5-325 15:47: mouth 3 [place] mg tablet 50 (three) Medical times Branch daily. aspirin 81 2020-04 Yes Take by Uni vers mg Cap 1-10 mouth. ity of 15:47: [place] 50 Medical Branch sennosides 2020-04 Yes 8.6mg 8.6 mg, Uni vers (SENOKOT) 1-10 Oral, ity of tablet 8.6 15:00: DAILY, [place] mg 00 First dose Medical on Fri [place] 03/07/21 at 0900, Until Discontinu ed, Routine sennosides 2020-04- No 8.6mg 8.6 mg, Un tam[place] (SENOKOT) 1-10 11-10 Oral, ity of tablet 8.6 15:00: 23:52 [place]ILY, [place] mg 00 :53 First dose Medical on Fri [place] 03/07/21 at 0900, Until Discontinu ed, Routine acetaminoph 2020-04 Yes 650mg 650 mg, Un tamiko en 1-10 Oral, Q6H, ity of (TYLENOL) 06:00: [place] tablet 650 00 on Fri Medical mg 03/07/21 Branch at 0000, Until Discontinu ed, Routine acetaminoph 2020-04- No 650mg 650 mg, U nivers en 1-10 11-10 Oral, Q6H, ity of (TYLENOL) 06:00: 23:52 [place] dose [place] tablet 650 00 :[address] [facility] Medical mg 03/07/21 Branch at 0000, Until Discontinu ed, Routine Sliding 2020-04 Yes Subcutaneo Univ ers Scale 1-10 us, TID ity of Insulin - 03:00: MEALS+HS, [place] Lispro 00 First dose Medical (HumaLOG) + on [facility] 03/06/21 at Testing 2100, Until Discontinu ed, Routine Sliding 2020-04- No Subcutaneo Uni vers Scale 1-10 11-10 us, TID ity of Insulin - 03:00: 23:52 [place]ALS+HS[place] Lispro 00 :53 First dose Medical (HumaLOG) + on Fri [place] [facility] 03/06/21 at Testing 2100, Until Discontinu ed, Routine gabapentin 2020-04 Yes 300mg 300 mg, Uni vers (NEURONTIN) 1-10 Oral, TID, it y of capsule 300 02:00: First dose [place] mg 00 on [facility] 03/06/21 at [place] 1999, Until Discontinu ed, Routine gabapentin 2020-04- No 300mg 300 mg, Un tamiko (NEURONTIN) 05-07 1110 Oral, TID, i ty of capsule 300 02:00: 23:52 First dose [place] mg 00 :53 on [facility] 03/06/21 at [place] 1999, Until Discontinu ed, Routine glucagon 2020-04 Yes 1mg 1 mg, Univers (GLUCAGEN -10 Intramuscu ity of DIAGNOSTIC 00:31: [place]N, [place] KIT) 03 Starting Medical injection [address] [facility] 03/06/21 at 183, Until Discontinu ed, DAVID, Blood Glucose < or = 70 mg/dL and patient is unable to swallow or has mental changes. dextrose 50 2020-04 Yes 25mL 25 mL, Univ ers % in water -10 Slow IV ity of (D50W) 00:31: Push, PRN, [place] injection 03 Starting Medica l 25 mL on [facility] 03/06/21 at 1831, Until Discontinu ed, DAVID, Blood Glucose < or = 70 mg/dL and patient is unable to swallow or has mental status changes. glucagon 2020-04- No 1mg 1 mg, Univers (GLUCAGEN -10 11-10 Intramuscu ity of DIAGNOSTIC 00:31: 23:52 lar, PRN, [place] KIT) 03 :53 Starting Medical injection [address] [facility] 03/06/21 at 1831, Until Fri03/07/21 at 1752, DAVID, Blood Glucose < or = 70 mg/dL and patient is unable to swallow or has mental changes. dextrose 50 2020-04- No 25mL 25 mL, Uni vers % in water 05-07 11-10 Slow IV ity o f (D50W) 00:31: 23:52 [place], [place]N, [place] injection 03 :53 Starting Medica l 25 mL on [facility] 03/06/21 at 1831, Until Fri03/07/21 at 1752, DAVID, Blood Glucose < or = 70 mg/dL and patient is unable to swallow or has mental status changes. ketorolac 2020-04 Yes 15mg 15 mg, Univer s (TORADOL) 1-10 Slow IV ity of injection 00:30: Push, [place] 15 mg 21 Q6HPRN, 4 Medical doses, Branch Starting on Fri03/06/21 at 1830, Until Discontinu ed, Routine, Pain [...] 15 Starting Medic al tablet on Fri 0.125 mg 03/06/21 at 1830, Until Discontinu [...] 4 55 Starting Medi jarrett mg on Fri Branch 03/06/21 at 1828, Until Discontinu ed, Routine, Nausea and Vomiting (N/V) ondansetron 2020-04- No 4mg 4 mg, Slow Univers (ZOFRAN 1-10 11-10 IV Push, ity of (PF)) 00:28: 23:52 Q4HPRN, [place] injection 4 55 :53 Starting Medi jarrett mg on Fri Branch 03/06/21 at 1828, Until Fri03/07/21 at 1752, Routine, Nausea and Vomiting (N/V) [...] at 1630, Routine, PACU acetaminoph 2020-04- Yes [id number] 650mg Take 2 Univers en 05-06- tablets by ity of (TYLENOL) 00:00: 05:59 mouth [place] 325 mg 00 :00 every 6 Medical tablet (six) Branch hours as needed for Pain (scale 4-6). acetaminoph 2020-04- Yes [id number] 650mg Take 2 Univers en 05-06 tablets by ity of (TYLENOL) 00:00: 05:59 mouth [place] 325 mg 00 :00 every 6 Medical tablet (six) Branch hours as needed for Pain (scale 4-6). acetaminoph 2020-04- Yes [id number] 650mg Take 2 Univers en 05-06 11-10 tablets by ity of (TYLENOL) 00:00: 05:59 mouth [place] 325 mg 00 :00 every 6 Medical tablet (six) Branch hours as needed for Pain (scale 4-6). acetaminoph 2020-04- Yes [id number] 650mg Take 2 Univers en 05-06 11-10 [...] Misc 00:00: DAY Medical Branch ONE TOUCH 2016-0 Yes USE 3 Univers DELICA 33 6-30 TIMES A ity of gauge Misc 00:00: DAY Medical Branch ONE TOUCH 2016-0 Yes USE 3 Univers DELICA 33 6-30 TIMES A ity of gauge Misc 00:00: DAY Medical Branch ONE TOUCH 2015-0 Yes USE 3 Univers DELICA 33 6-30 TIMES A ity of gauge Misc 00:00: DAY Medical Branch ONE TOUCH 0 Yes USE 3 Univers DELICA 33 6-30 TIMES A ity of gauge Misc 00:00: DAY Medical Branch BD INSULIN 2016-0 Yes Univers SYRINGE 6-12 ity of ULTRA-FINE [...] gauge x Branch 5/16 Syrg BD INSULIN 2015-0 Yes Univers SYRINGE 6-12 ity of ULTRA-FINE 00:00: [place] 0.5 mL 31 00 Medical gauge x Branch 5/16 Syrg BD INSULIN 2015-0 Yes Univers SYRINGE 6-12 ity of ULTRA-FINE 00:00: [place] 0.5 mL 31 00 Medical gauge x Branch 5/16 Syrg BD INSULIN 2015-0 Yes Univers SYRINGE 6-12 ity of ULTRA-FINE 00:00: [place] 0.5 mL 31 00 Medical gauge x Branch 5/16 Syrg BD INSULIN 2015-0 Yes Univers SYRINGE 6-12 ity of ULTRA-FINE 00:00: [place] 0.5 mL 31 00 Medical gauge x Branch 5/16 Syrg BD INSULIN 2015-0 Yes Univers SYRINGE 6-12 ity of ULTRA-FINE 00:00: [place] 0.5 mL 31 00 Medical gauge x Branch 5/16 Syrg traMADOL 0 Yes Univers (ULTRAM) 50 5-27 ity of mg tablet 00:00: Medical Branch traMADOL 2016-0 Yes Univers (ULTRAM) 50 5-27 ity of mg tablet 00:00: [place] [facility] Branch traMADOL 20160 Yes Univers (ULTRAM) 50 5-27 ity of mg tablet 00:00: [facility] Branch traMADOL 20160 Yes Univers (ULTRAM) 50 5-27 ity of mg tablet 00:00: [facility] Branch traMADOL 20160 Yes Univers (ULTRAM) 50 5-27 ity of mg tablet 00:00: [facility] Branch traMADOL 0 Yes Univers (ULTRAM) 50 5-27 ity of mg tablet 00:00: [facility] Branch traMADOL 20160 Yes Univers (ULTRAM) 50 5-27 ity of mg tablet 00:00: [facility] traMADOL 0 Yes Univers (ULTRAM) 50 5-27 ity of mg tablet 00:00: [facility] traMADOL 0 Yes Univers (ULTRAM) 50 5-27 ity of mg tablet 00:00: [facility] Branch gabapentin 0 Yes Univers (NEURONTIN) 5-23 ity of 100 mg 00:00: [place] capsule Medical Branch gabapentin 20160 Yes Univers (NEURONTIN) 5-23 ity of 100 mg 00:00: [place] capsule Medical Branch gabapentin 20160 Yes 600mg 600 mg. Uni vers (NEURONTIN) [...] mg 00:00: [place] capsule Medical Branch gabapentin 20160 Yes Univers (NEURONTIN) 5-23 ity of 100 mg 00:00: [place] capsule Medical Branch ramipril 20160 Yes Univers (ALTACE) 10 5-14 ity of mg capsule 00:00: [place] 00 Medical Branch ramipril 2016-0 Yes Univers (ALTACE) 10 5-14 ity of mg capsule 00:00: [place] [facility] ramipril 2016-0 Yes Univers (ALTACE) 10 5-14 ity of mg capsule 00:00: [place] [facility] ramipril 2016-0 Yes Univers (ALTACE) 10 5-14 ity of mg capsule 00:00: [place] [facility] ramipril 2016-0 Yes Univers (ALTACE) 10 5-14 ity of mg capsule 00:00: [place] 00 Medical Branch ramipril 2016-0 Yes Univers (ALTACE) 10 5-14 ity of mg capsule 00:00: [place] [facility] ramipril 2016-0 Yes Univers (ALTACE) 10 5-14 ity of mg capsule 00:00: [place] [facility] ramipril 2016-0 Yes Univers (ALTACE) 10 5-14 ity of mg capsule 00:00: [place] [facility] ramipril 2016-0 Yes Univers (ALTACE) 10 5-14 ity of mg capsule 00:00: [place] 00 Medical Branch ONETOUCH 20160 Yes Univers ULTRA TEST 4-29 ity of strip 00:00: [place] 00 Medical Branch ONETOUCH 2016-0 Yes Univers ULTRA TEST 4-29 ity of strip 00:00: [place] [facility] ONETOUCH 2016-0 Yes Univers ULTRA TEST 4-29 ity of strip 00:00: [place] [facility] ONETOUCH 2016-0 Yes Univers ULTRA TEST 4-29 ity of strip 00:00: [place] [facility] ONETOUCH 2016-0 Yes Univers ULTRA TEST 4-29 ity of strip 00:00: [place] [facility] ONETOUCH 2016-0 Yes Univers ULTRA TEST 4-29 ity of strip 00:00: [place] [facility] ONETOUCH 2016-0 Yes Univers ULTRA TEST 4-29 ity of strip 00:00: [place] [facility] ONETOUCH 2016-0 Yes Univers ULTRA TEST 4-29 ity of strip 00:00: [place] [facility] ONETOUCH 2015-0 Yes Univers ULTRA TEST 4-29 ity of strip 00:00: [place] [facility] [place] hydrOXYzine 2015-0 Yes Univer s (ATARAX) 50 4-12 ity of mg tablet 00:00: [place] 00 Medical [place] pravastatin 2016-0 Yes Univer s (PRAVACHOL) 4-12 ity of 40 mg 00:00: [place] tablet 00 Medical Branch hydrOXYzine 0 Yes Univer s (ATARAX) 50 4-12 ity of mg tablet 00:00: [place] [facility] pravastatin 2016-0 Yes Univer s (PRAVACHOL) 4-12 ity of 40 mg 00:00: [place] tablet 00 Medical Branch hydrOXYzine 0 Yes Univer s (ATARAX) 50 4-12 ity of mg tablet 00:00: [place] [facility] pravastatin 20160 Yes Univer s (PRAVACHOL) 4-12 ity of 40 mg 00:00: [place] tablet 00 Medical [place] hydrOXYzine 0 Yes Univer s (ATARAX) 50 4-12 ity of mg tablet 00:00: [place] [facility] pravastatin 2016-0 Yes Univer s (PRAVACHOL) 4-12 ity of 40 mg 00:00: [place] tablet [facility] hydrOXYzine 0 Yes Univer s (ATARAX) 50 4-12 ity of mg tablet 00:00: [place] [facility] pravastatin 20160 Yes Univer s (PRAVACHOL) 4-12 ity of 40 mg 00:00: [place] tablet [facility] hydrOXYzine 0 Yes Univer s (ATARAX) 50 4-12 ity of mg tablet 00:00: [place] [facility] pravastatin 2016-0 Yes Univer s (PRAVACHOL) 4-12 ity of 40 mg 00:00: [place] tablet 00 Medical Branch hydrOXYzine 2015-0 Yes Univer s (ATARAX) 50 4-12 ity of mg tablet 00:00: [place] [facility] pravastatin 2016-0 Yes Univer s (PRAVACHOL) 4-12 ity of 40 mg 00:00: [place] tablet 00 Medical Branch hydrOXYzine 2015-0 Yes Univer s (ATARAX) 50 4-12 ity of mg tablet 00:00: [place] [facility] pravastatin 2016-0 Yes Univer s (PRAVACHOL) 4-12 ity of 40 mg 00:00: [place] tablet 00 [facility] hydrOXYzine 2015-0 Yes Univer s (ATARAX) 50 4-12 ity of mg tablet 00:00: [place] 00 Medical Branch pravastatin 0 Yes Univer s (PRAVACHOL) 4-12 ity of 40 mg 00:00: [place] tablet 00 Medical Branch HUMULIN Yes Univers 70/30 100 4-11 ity of unit/mL 00:00: [place] (30) 00 Medical suspension Branch HUMULIN Yes Univers 70/30 100 4-11 ity of unit/mL 00:00: [place] () Medical suspension Branch HUMULIN Yes Univers 70/30 100 4-11 ity of unit/mL 00:00: [place] (30) 00 Medical suspension Branch HUMULIN Yes Univers 70/30 100 4-11 ity of unit/mL 00:00: [place] () 00 Medical suspension Branch HUMULIN Yes Univers 70/30 100 4-11 ity of unit/mL 00:00: [place] () 00 Medical suspension Branch HUMULIN Yes Univers 70/30 100 4-11 ity of unit/mL 00:00: [place] () Medical suspension Branch HUMULIN Yes Univers 70/30 100 4-11 ity of unit/mL 00:00: [place] (30) 00 Medical suspension Branch HUMULIN Yes Univers 70/30 100 4-11 ity of unit/mL 00:00: [place] (30) 00 Medical suspension Branch HUMULIN Yes Univers 70/30 100 4-11 ity of unit/mL 00:00: [place] () Medical suspension Branch rOPINIRole Yes Univers (REQUIP) 4-01 ity [...] Medical Branch rOPINIRole 0 Yes Univers (REQUIP) 4 ity of 0.25 mg 00:00: [place] tablet 00 Medical Branch rOPINIRole 0 Yes Univers (REQUIP) 4 ity of 0.25 mg 00:00: [place] tablet 00 Medical Branch rOPINIRole 0 Yes Univers (REQUIP) 4 ity of 0.25 mg 00:00: [place] tablet 00 Medical Branch rOPINIRole 0 Yes Univers (REQUIP) 4 ity of 0.25 mg 00:00: [place] tablet 00 Medical Branch Vital Signs Vital Name Observation Time Observation Value Comments Source Body weight 2021-03-19 13:00:00 68.947 kg Universi ty [facility] BMI 2021-03-19 13:00:00 18.02 kg/m2 Universi ty [facility] Body temperature 2021-03-10 18:04:[address] [facility] Respiratory rate 2021-03-10 18:04:00 18 /min [facility] ersity [facility] Body weight 2021-03-10 18:04:00 68.947 kg Universi ty [facility] BMI 2021-03-10 18:04:00 18.02 kg/m2 Universi ty [facility] Oxygen saturation in 2021-03-10 18:04:00 97 /min University of Arterial blood by [facility] Pulse oximetry [place] Systolic blood 2021-03-07 18:01:00 108 mm[Hg] Univer sity of pressure [facility] Diastolic blood 2021-03-07 18:01:00 49 mm[Hg] Unive rsity of pressure [facility] Heart rate 2021-03-07 18:01:00 71 /min Universi ty [facility] Body temperature 2021-03-07 18:01:[address] [facility] ersity [facility] Respiratory rate 2021-03-07 18:01:00 18 /min [facility] Oxygen saturation in 2021-03-07 18:01:00 99 /min University of Arterial blood by [facility] Pulse oximetry Branch Body height 2021-03-06 18:14:00 195.6 cm Universi ty [facility] Body weight 2021-03-06 18:14:00 69.3 kg Universi ty of [place] [facility] BMI 2021-03-06 18:14:00 18.12 kg/m2 Universi ty of [place] [facility] Systolic blood 2021-03-06 23:00:00 136 mm[Hg] Univer sity of pressure [place] [facility] Diastolic blood 2021-03-06 23:00:00 71 mm[Hg] Unive rsity of pressure [facility] Heart rate 2021-03-06 22:45:00 70 /min Universi ty [facility] [place] [facility] Respiratory rate 2021-03-06 22:45:00 13 /min Univ ersity of [facility] Oxygen saturation in 2021-03-06 22:45:00 99 /min University of Arterial blood by [email or web address] Pulse oximetry Branch Body temperature 2021-03-06 22:43:[address] [facility] ersity of [place] [facility] [place] Body height 2021-03-06 18:14:00 195.6 cm Universi ty of [place] [facility] [place] Body weight 2021-03-06 18:14:00 69.3 kg Universi ty [facility] [place] [facility] BMI 2021-03-06 18:14:00 18.12 kg/m2 Universi ty of [place] [facility] Systolic blood 2021-02-26 15:47:00 93 mm[Hg] Univer sity of pressure [facility] Branch Diastolic blood 2021-02-26 15:47:00 51 mm[Hg] Unive rsity of pressure [place] [facility] [place] Heart rate 2021-02-26 15:47:00 51 /min Universi ty of [place] [facility] Respiratory rate 2021-02-26 15:47:00 18 /min Univ ersity of [facility] Body weight 2021-02-26 15:47:00 90.719 kg Universi ty [facility] [place] [facility] BMI 2021-02-26 15:47:00 23.72 kg/m2 Universi ty of [place] [facility] Oxygen saturation in 2021-02-26 15:47:00 98 /min University of Arterial blood by [email or web address] Pulse oximetry Branch Procedures Procedure Date / Time Performing Clinician Source Performed CONSENT/REFUSAL FOR 2021-03-10 17:48:54 Doctor Unassigned, No Un [facility] DIAGNOSIS AND TREATMENT Name Medical Branch POCT [...] BLADDER 2021-03-06 21:20:00 Leopoldo Constantino Un [place] [place] TUMOR RESECTION [facility] TRANSURETHRAL BLADDER 2021-03-06 21:20:00 Leopoldo Constantino Un iversity [facility] TUMOR RESECTION [facility] POCT GLUCOSE (AUTOMATED) 2021-03-06 18:44:00 Leopoldo [facility]ino [facility] POCT GLUCOSE (AUTOMATED) 2021-03-06 18:44:00 Leopoldo Constantino [facility] ASSIGNMENT OF BENEFITS 2021-03-06 17:46:44 Doctor Unassigned, No [facility] Name [facility] CONSENT/REFUSAL FOR 2021-01-22 21:54:28 Doctor [facility]igned, [facility] Encounters Start End Encounter Admission Attending Care Care Encounter Source Date/Time Date/Time Type Type Clinicians Facility Department ID 2021-04-03 Inpatient VIRA [facility] [id number] Univers 07:20:30 LEOPOLDO [facility] 2021-05-04 2021-05-04 Outpatient Lucho MILLER [facility] [id number] Univers 14:30:00 14:30:00 SENDIL [id number] [facility] 2021-03-19 2021-03-19 Outpatient Lucho CONSTANTINO [facility] [id number] Univers 09:45:00 09:45:00 [facility] [id number] [facility] 2021-03-19 2021-03-19 Outpatient Lucho CONSTANTINO [facility] [id number] Univers 09:45:00 09:45:00 LEOPOLDO rayonguyen [facility] 2021-03-19 2021-03-19 [facility]medici [facility] [id number] Univers 08:05:57 08:20:57 ne Visit Leopoldo PAPPAS [id number] ity of CANCER 4.2.7.2.686 [facility] - [id number] Med ical MDA [id number] Branch 2021-03-18 2021-03-18 [facility] [id number] Univers 10:30:00 10:30:00 LEOPOLDO [id number] [facility] 2021-03-12 2021-03-12 [facility] [id number] Univers 16:30:00 16:30:00 MILENA [facility] 2021-03-12 2021-03-12 [facility] [id number] Univers 15:30:00 15:30:00 MILENA [id number] [facility] 2021-03-12 2021-03-12 Outpatient R [facility] [id number] Univers 15:30:00 15:30:00 [facility] 2021-03-12 2021-03-12 Outpatient R [facility] [id number] Univers 10:00:00 10:00:00 [facility] 2021-03-10 2021-03-10 Emergency [facility] ERT [id number] Univers 12:09:00 13:08:00 ROB [facility] 2021-03-10 2021-03-10 Emergency [facility] [id number] Univers 12:09:00 13:08:00 Rob PHI 350.1.13.10 i ty of [place] 4.2.7.2.686 [facility] [id number] [facility] 084 [place] 2021-03-06 2021-03-07 Outpatient [facility] SUU [id number] Univers 11:57:00 15:47:00 LEOPOLDO [facility] 2021-03-06 2021-03-07 Hospital NAE Constantino [id number] Univers 11:57:00 15:47:00 Encounter Leopoldo ZAVALA [id number] ity of HOSPITAL .2.7.2.686 [place] [id number] [facility] 091 Branch 2021-03-06 2021-03-06 Surgery NAE Constantino [id number] Univers 14:53:00 17:10:00 Leopoldo BURNHAMY 350.1.13.10 ity of HOSPITAL .2.7.2.686 [place] [id number] [facility] 103 Branch 2021-03-06 2021-03-06 Orders Doctor TRUONG [id number] Univers 00:00:00 00:00:00 Only Unassigned, SALLY 350.1.13.10 ity of [place] [facility] 4.2.7.2.686 [place] [id number] [facility] 009 Branch 2021-03-05 2021-03-05 Telephone [facility] [id number] Univers 00:00:00 00:00:00 Leopoldo Coles HEALTH [id number] ity [place] 4[place].2.686 [place] - [id number] Med [facility] 204 Branch 2021-02-26 2021-02-26 Office [facility] [id number] Univers 10:38:42 11:08:42 Visit Leopoldo Coles HEALTH [id number] it[place] 4[place]2.7.2.686 [place] - [id number] Med [facility] 204 [place] 2021-02-26 2021-02-26 [facility] [id number] Univers 10:30:00 10:30:00 LEOPOLDO [id number] nguyen [facility] 2021-02-26 2021-02-26 [facility] [id number] Univers 10:30:00 10:30:00 [facility] 2021-02-05 2021-02-05 Outpatient R NICO [facility] [id number] Univers 09:30:00 09:30:00 [facility] [id number] [facility] 2021-02-05 2021-02-05 Outpatient R NICO [facility] [id number] Univers 09:30:00 09:30:00 [facility] 2021-01-29 2021-01-29 Outpatient R NICO [facility] [id number] Univers 09:45:00 09:45:00 [facility] 2021-01-22 2021-01-22 Emergency X [facility] ERT [id number] Univers 16:56:00 16:56:00 [facility] 2021-01-22 2021-01-22 Orders Doctor TRUONG [id number] [id number] Univers 00:00:00 00:00:00 Only Unassigned, SALLY 350.1.13.10 ity of [place] [facility] 4.2.7.2.686 [place] [id number] [address] Results Test Description Test Time Test Comments Results Result Comments Source POCT GLUCOSE (AUTOMATED) 2021-03-07 16:52:59 Test Item Value Reference Range Interpretation Comme nts POCT GLU (test code = 2891353841) 177 mg/dL 70-110 H Lab Interpretation (test code = 68978-6) Abnormal [facility] GLUCOSE (AUTOMATED)2021-03-07 16:52:59 Test Item Value Reference Range Interpretation Comments POCT GLU (test code = 3010235686) 177 mg/dL 70-110 H Lab Interpretation (test code = Abnormal 34372-7) [facility] GLUCOSE (AUTOMATED)2021-03-07 06:06:57 Test Item Value Reference Range Interpretation Comments POCT GLU (test code = 0685152440) 263 mg/dL 70-110 H Lab Interpretation (test code = Abnormal 33602-8) [facility] GLUCOSE (AUTOMATED)2021-03-07 06:06:57 Test Item Value Reference Range Interpretation Comments POCT GLU (test code = 6198866226) 263 mg/dL 70-110 H Lab Interpretation (test code = Abnormal 72759-3) [facility] GLUCOSE (AUTOMATED)2021-03-07 03:26:00 Test Item Value Reference Range Interpretation Comments POCT GLU (test code = 1544307970) 363 mg/dL 70-110 H Lab Interpretation (test code = Abnormal 89748-3) [facility] GLUCOSE (AUTOMATED)2021-03-07 03:26:00 Test Item Value Reference Range Interpretation Comments POCT GLU (test code = 5037016458) 363 mg/dL 70-110 H Lab Interpretation (test code = Abnormal 57794-5) [facility] GLUCOSE (AUTOMATED)2021-03-06 18:45:36 Test Item Value Reference Range Interpretation Comments POCT GLU (test code = 143 mg/dL 70-110 H Notifi ed Provider [id number]) Lab Interpretation (test Abnormal code = 80125-3) [facility] GLUCOSE (AUTOMATED)2021-03-06 18:45:36 Test Item Value Reference Range Interpretation Comments POCT GLU (test code = 143 mg/dL 70-110 H Notifi ed Provider [id number]) Lab Interpretation (test Abnormal code = 23456-9) [facility]
--- NOTE | 2021-04-17 20:24 | RAD REPORT ---
EXAM DESCRIPTION: RAD - Knee Right 3 View - 04/17/2021 8:16 pm CLINICAL HISTORY: trauma COMPARISON: No comparisons FINDINGS: Diffuse soft tissue swelling. No fractures identified. Degenerative changes are present in the medial compartment. Mild patellofemoral compartment spurring is present. Peripheral vascular jarrett cifications. IMPRESSION: No acute osseous abnormality involving the right knee.
--- NOTE | 2021-04-17 20:25 | RAD REPORT ---
EXAM DESCRIPTION: RAD - Chest Single View - 04/17/2021 8:16 pm CLINICAL HISTORY: generalized weakness COMPARISON: Chest Single View dated 03/11/2021; Chest Single View dated 12/29/2017; Chest Pa And Lat ( 2 Views) dated 05/05/2017 FINDINGS: Lines: None. Lungs: No evidence of edema or pneumonia. Pleural: No significant pleural effusions or pneumothorax. Cardiac: The heart size is within normal limits. Bones: No acute fractures. Other: IMPRESSION: No acute cardiopulmonary disease.
--- NOTE | 2021-04-17 20:25 | RAD REPORT ---
EXAM DESCRIPTION: RAD - Elbow Left 3 View - 04/17/2021 8:16 pm CLINICAL HISTORY: trauma COMPARISON: No comparisons FINDINGS: No acute fracture. No malalignment. No significant focal degenerative changes. IMPRESSION: No acute osseous abnormality involving the right elbow.
--- NOTE | 2021-04-17 20:31 | RAD REPORT ---
EXAM DESCRIPTION: CT - Head Brain Wo Cont - 04/17/2021 8:11 pm CLINICAL HISTORY: TRAUMA COMPARISON: Head Brain Wo Cont dated 03/11/2021 TECHNIQUE: All CT scans are performed using dose optimization technique as appropriate and may inclu de automated exposure control or mA/KV adjustment according to patient size. FINDINGS: No intracranial hemorrhage, hydrocephalus or extra-axial fluid collection.No areas of brai n edema or evidence of midline shift. Cavum septum pellucidum. Chronic small vessel ischemic changes. The paranasal sinuses and mastoids are clear. The calvarium is intact. IMPRESSION: No acute intracranial abnormality.
[2021-04-17 21:01] LABS: Protime INR 1.05
[2021-04-17 21:24] LABS: Absolute Lymphocytes (CBC) 1.6 K/uL (0.7-4.9); Basophils % 0.5 % (0-1.3); Hematocrit 37.1 % (39.6-49.0); MPV 9.4 fL (7.6-11.3); RBC Red Blood Cell Count 3.86 M/uL (4.33-5.43)
[2021-04-17 21:24] LABS: ALT/SGPT 14 U/L (12-78); AST/SGOT 9 U/L (15-37); Alkaline Phosphatase 66 U/L (45-117); BUN Blood Urea Nitrogen 26 mg/dL (7-18); Bicarbonate 26 mmol/L (21-32); Bilirubin Direct 0.3 mg/dL (0-0.2); Bilirubin Total 0.8 mg/dL (0.2-1.0); Glucose Level 323 mg/dL (74-106); Magnesium 1.7 mg/dL (1.8-2.4); NT PRO-BNP 8690 pg/mL (<450); Potassium 4.1 mmol/L (3.5-5.1); Protein, Total 6.7 g/dL (6.4-8.2); Sodium Level 140 mmol/L (136-145); Troponin (Emerg Dept Use Only) < 0.02 ng/mL (0.0-0.045)
[2021-04-17 21:30] LABS: SARS-COV-2 RT PCR NEGATIVE (NEGATIVE)
[2021-04-17 22:10] LABS: Urine Blood 3+ (Negative); Urine Glucose 2+ (Negative); Urine Protein 2+ (Negative); Urine Specific Gravity 1.025 (1.005-1.030)
[2021-04-17] MEDS ORDERED: CEFEPIME 1 GM/VIAL ONE (22:11)
[2021-04-17] MEDS ORDERED: NA CHLORIDE 0.9% 100 ML ONE (22:12)
[2021-04-17] MEDS ORDERED: NA CHLORIDE 0.9% 500 ML ONE (22:12)
--- NOTE | 2021-04-17 22:14 | ER ---
Nurse's Notes [facility] Name: Bry Hickey III Age: 75 yrs Sex: Male : 1945 Arrival Date: 04/17/2021 Time: 19:17 Bed 2 Private MD: Diagnosis: Syncope;Generalized weakness;UTI/ Urinary tract infection, site not specified Presentation: 04/17 19:29 Chief complaint: EMS states: " His called because Bry has fallen three times tw5 today. He is just generally weak". Coronavirus screen: Vaccine status: Patient reports receiving the 2nd dose of the covid vaccine. 19:29 Method Of Arrival: EMS: [facility] tw5 19:33 Ebola Screen: Patient negative for fever greater than or equal to 101.5 degrees tw5 Fahrenheit, and additional compatible Ebola Virus Disease symptoms Patient denies exposure to infectious person. Patient denies travel to an Ebola-affected area in the 21 days before illness onset. Initial Sepsis Screen: Does the patient meet any 2 criteria? No. Patient's initial sepsis screen is negative. Does the patient have a suspected source of infection? No. Patient's initial sepsis screen is negative. Risk Assessment: Do you want to hurt yourself or someone else? Patient reports no desire to harm self or others. Onset of symptoms is unknown. 19:33 Acuity: DOMINIQUE 3 tw5 Triage Assessment: 19:34 General: Appears in no apparent distress. Behavior is calm, cooperative, appropriate tw5 for age, tremors noted. Pain: Denies pain. Injury Description: skin tear to left elbow. Historical: - Allergies: 19:34 No Known Allergies; tw5 - Home Meds: 19:34 hydrocodone-acetaminophen 5-325 mg oral tab 1 tab every 6 hours for pain [Active]; tw5 Novolin N NPH U-100 Insulin 100 unit/mL subcutaneous crtg [Active]; - PMHx: 19:34 Chronic back pain; Diabetes mellitus; tw5 - Immunization history:: Last tetanus immunization: unknown. - Social history:: Smoking status: Patient reports use of chewing tobacco. Screenin:36 Abuse screen: Denies threats or abuse. Denies injuries from another. Nutritional tw5 screening: No deficits noted. Tuberculosis screening: No symptoms or risk factors identified. Fall Risk Fall in past 12 months (25 points). Secondary diagnosis (15 points) IV access (20 points). Ambulatory Aid- Crutches/Cane/Walker (15 pts). Gait- Weak (10 pts.). Mental Status-. Assessment: 19:36 General: Appears in no apparent distress. Behavior is calm, cooperative, appropriate tw5 for age. Pain: Denies pain. Cardiovascular: Heart tones S1 S2 present. Respiratory: Airway is patent Trachea midline Respiratory effort is even, unlabored. : Reports incontinence. Derm:. Derm: skin tear to left elbow. 21:50 General: Appears in no apparent distress. uncomfortable, Behavior is calm, cooperative, tw5 appropriate for age, Daughter at the bedside "I need some results. I cannot wait here all night" [phone] Neda. 22:18 Reassessment: Patient appears in no apparent distress at this time. No changes from tw5 previously documented assessment. Patient and/or family updated on plan of care and expected duration. Pain level reassessed. Patient is alert, oriented x 3, equal unlabored respirations, skin warm/dry/pink. General: Appears uncomfortable. 22:20 General: hospitalist at the bedside. tw5 Vital Signs: 19:33 BP 150 / 80; Pulse 66; Resp 19; Temp 98.2; Pulse Ox 100% on R/A; Weight 74.84 kg; tw5 Height 6 ft. 3 in. (190.50 cm); Pain 0/10; 21:51 BP 157 / 98; Pulse 98; Resp 18; Pulse Ox 97% on R/A; tw5 19:33 Body Mass Index 20.62 (74.84 kg, 190.50 cm) tw5 ED Course: 19:17 Patient arrived in ED. mw2 19:28 Makayla Wiggins is Primary Nurse. tw5 19:33 Eduardo Vital MD is Attending Physician. mh7 19:34 Triage completed. tw5 19:34 Arm band placed on Patient placed in an exam room, on a stretcher. tw5 19:36 Awaiting lab results. tw5 19:36 Patient has correct armband on for positive identification. Placed in gown. Bed in low tw5 position. Side rails up X2. personnel monitor on. Pulse ox on. NIBP on. Door closed. Noise minimized. Moved to private room. Warm blanket given. Verbal reassurance given. 19:36 Initial lab(s) drawn, by ED staff, sent to lab. Maintain EMS IV. Dressing intact. Good tw5 blood return noted. Site clean \\T\\ dry. Gauge \\T\\ site: 20 g right forearm. 19:36 COVID swab sent to lab. tw5 19:38 COVID-19/FLU A+B Sent. tw5 19:38 COVID-19/FLU A+B (Document "Date of Onset" if Symptomatic) Sent. tw5 20:10 CT Head Brain wo Cont In Process Unspecified. EDMS 20:15 XRAY Chest (1 view) In Process Unspecified. EDMS 20:15 Elbow Left 3 View XRAY In Process Unspecified. EDMS 20:15 Knee Right 3 View XRAY In Process Unspecified. EDMS 21:28 COVID-19/FLU A+B Sent. tw5 21:52 Basic Metabolic Panel Sent. tw5 21:52 CBC with Diff Sent. tw5 21:52 LFT's Sent. tw5 21:52 Magnesium Sent. tw5 21:52 NT PRO-BNP Sent. tw5 22:12 Apolinar Ramirez MD is Hospitalizing Provider. [facility] 22:20 Urine Culture Sent. tw5 23:07 No provider procedures requiring assistance completed. Patient admitted, IV remains in tw5 place. 23:08 Blood Culture Adult (2) Sent. tw5 Administered Medications: 22:20 Drug: Cefepime 1 grams Route: IVPB; Rate: 200 ml/hr; Infused Over: 30 mins; Site: right tw5 forearm; 23:07 Follow up: IV Status: Infusion continued upon admission tw5 22:20 Drug: NS 0.9% 500 ml Route: IV; Rate: bolus; Site: right forearm; tw5 23:05 Follow up: IV Status: Infusion continued upon admission tw5 22:37 Drug: Insulin Regular Human 10 units {Co-Signature: dorene (Vanesa De Leon RN).} Route: tw5 Sub-Q; Site: left upper arm; 23:05 Follow up: Response: No adverse reaction tw5 23:05 Drug: NS 0.9% 1000 ml Route: IV; Rate: 100 ml/hr; Site: left forearm; tw5 23:07 Follow up: IV Status: Infusion continued upon admission tw5 Outcome: 22:13 Decision to Hospitalize by Provider. [facility] 22:45 Admitted to Med/surg room 232, Report called to Spoke to Lex, he stated nurse is tw5 currently assisting another patient and will have to call back. 23:07 Condition: good 5 23:07 Instructed on the need for admit. 23:08 Patient left the ED. 5 Signatures: Dispatcher [employer] EDCT Sandra Briscoe 2 Eduardo Vital MD MD 7 Makayla Wiggins 5 Vanesa De Leon RN dorene
--- NOTE | 2021-04-17 22:14 | EDPHYS ---
Physician Documentation [facility] Name: Bry Hickey III Age: 75 yrs Sex: Male : 1945 Arrival Date: 04/17/2021 Time: 19:17 Bed 2 Private MD: ED Physician Eduardo Vital HPI: 04/17 20:00 This 75 yrs old Male presents to ER via EMS with complaints of General Weakness. 7 20:00 Details of fall: The patient fell from an upright position, while walking, Using a mh7 Rollator, and struck a carpeted surface. Onset: The symptoms/episode began/occurred today. Associated injuries: The patient sustained Left elbow, abrasion, contusion, Right knee, contusion. Severity of symptoms: At their worst the symptoms were moderate, earlier today, in the emergency department the symptoms are unchanged. Patient states that he has had generalized weakness/fatigue for least the last several days. States that he had dizziness while using Rollator and fell multiple times. He does report some loss of consciousness but unknown duration. He denies any headache, chest pain, abdominal pain, shortness of breath, nausea, vomiting, diarrhea, fever, numbness/tingling, or focal weakness.. Historical: - Allergies: 19:34 No Known Allergies; tw5 - Home Meds: 19:34 hydrocodone-acetaminophen 5-325 mg oral tab 1 tab every 6 hours for pain [Active]; tw5 Novolin N NPH U-100 Insulin 100 unit/mL subcutaneous crtg [Active]; - PMHx: 19:34 Chronic back pain; Diabetes mellitus; tw5 - Immunization history:: Last tetanus immunization: unknown. - Social history:: Smoking status: Patient reports use of chewing tobacco. ROS: 20:00 Constitutional: Negative for fever, chills, and weight loss, Eyes: Negative for injury, mh7 pain, redness, and discharge, ENT: Negative for injury, pain, and discharge, Neck: Negative for injury, pain, and swelling, Cardiovascular: Negative for chest pain, palpitations, and edema, Respiratory: Negative for shortness of breath, cough, wheezing, and pleuritic chest pain, Abdomen/GI: Negative for abdominal pain, nausea, vomiting, diarrhea, and constipation, Back: Negative for injury and pain, : Negative for injury, bleeding, discharge, and swelling, Psych: Negative for depression, anxiety, suicide ideation, homicidal ideation, and hallucinations, Allergy/Immunology: Negative for hives, rash, and allergies, Endocrine: Negative for neck swelling, polydipsia, polyuria, polyphagia, and marked weight changes, Hematologic/Lymphatic: Negative for swollen nodes, abnormal bleeding, and unusual bruising. Exam: 20:00 Head/Face: Normocephalic, atraumatic. Eyes: Pupils equal round and reactive to light, mh7 extra-ocular motions intact. Lids and lashes normal. Conjunctiva and sclera are non-icteric and not injected. Cornea within normal limits. Periorbital areas with no swelling, redness, or edema. ENT: Nares patent. No nasal discharge, no septal abnormalities noted. Tympanic membranes are normal and external auditory canals are clear. Oropharynx with no redness, swelling, or masses, exudates, or evidence of obstruction, uvula midline. Mucous membranes moist. Neck: Trachea midline, no thyromegaly or masses palpated, and no cervical lymphadenopathy. Supple, full range of motion without nuchal rigidity, or vertebral point tenderness. No Meningismus. Chest/axilla: Normal chest wall appearance and motion. Nontender with no deformity. No lesions are appreciated. Cardiovascular: Regular rate and rhythm with a normal S1 and S2. No gallops, murmurs, or rubs. Normal PMI, no JVD. No pulse deficits. Respiratory: Lungs have equal breath sounds bilaterally, clear to auscultation and percussion. No rales, rhonchi or wheezes noted. No increased work of breathing, no retractions or nasal flaring. Abdomen/GI: Soft, non-tender, with normal bowel sounds. No distension or tympany. No guarding or rebound. No evidence of tenderness throughout. Back: No spinal tenderness. No costovertebral tenderness. Full range of motion. 20:00 Psych: Awake, alert, with orientation to person, place and time. Behavior, mood, and affect are within normal limits. 20:00 Constitutional: The patient appears in no acute distress, alert, awake, frail. 20:00 Skin: injury, abrasion(s), very small abrasion noted, of the Left elbow, contusion(s), that are superficial, of the Right anterior knee, Small skin tear no active bleeding at left elbow. 20:00 Neuro: Orientation: is normal, Mentation: is normal, Memory: is normal, Cranial nerves: grossly normal, Cerebellar function: is grossly normal, Motor: is grossly normal based on the patient's age, moves all fours, Sensation: is normal, Gait: not tested. seizure activity, is not displayed by the patient, Abnormal movements: resting tremor, is located in the right arm and left arm. Vital Signs: 19:33 BP 150 / 80; Pulse 66; Resp 19; Temp 98.2; Pulse Ox 100% on R/A; Weight 74.84 kg; tw5 Height 6 ft. 3 in. (190.50 cm); Pain 0/10; 21:51 BP 157 / 98; Pulse 98; Resp 18; Pulse Ox 97% on R/A; tw5 19:33 Body Mass Index 20.62 (74.84 kg, 190.50 cm) tw5 MDM: 22:11 Differential diagnosis: abrasion, closed head injury, contusion, fracture, laceration, [facility] multiple trauma, sprain, strain. Data reviewed: vital signs, nurses notes, EMS record, old medical records, lab test result(s), cardiac enzymes, CBC, electrolytes, urinalysis, EKG, radiologic studies, CT scan, plain films. Data interpreted: Pulse oximetry: on room air is 97 %. Interpretation: normal. Counseling: I had a detailed discussion with the patient and/or guardian regarding: the historical points, exam findings, and any diagnostic results supporting the discharge/admit diagnosis, the presence of at least one elevated blood pressure reading (>120/80) during this emergency department visit, lab results, radiology results, the need for further work-up and treatment in the hospital. Response to treatment: the patient's symptoms have mildly improved after treatment. 22:13 Patient medically screened. [facility] 04/17 19:34 Order name: Basic Metabolic Panel [facility] 04/17 19:34 Order name: CBC with Diff [facility] 04/17 19:34 Order name: LFT's [facility] 04/17 19:34 Order name: Magnesium [facility] 04/17 19:34 Order name: NT PRO-BNP [facility] 04/17 19:34 Order name: PT-INR; Complete Time: 21:19 [facility] 04/17 19:34 Order name: Troponin (emerg Dept Use Only); Complete Time: 21:54 7 04/17 19:34 Order name: Basic Metabolic Panel; Complete Time: 21:39 EDMS 04/17 19:34 Order name: CBC with Automated Diff; Complete Time: 21:54 EDMS 04/17 19:34 Order name: Liver (Hepatic) Function; Complete Time: 21:54 EDMS 04/17 19:34 Order name: Magnesium; Complete Time: 21:54 EDMS 04/17 19:34 Order name: NT PRO-BNP; Complete Time: 21:54 EDMS 04/17 19:36 Order name: COVID-19/FLU A+B (Document "Date of Onset" if Symptomatic) [facility] 04/17 19:36 Order name: COVID-19/FLU A+B; Complete Time: 21:54 EDMS 04/17 19:34 Order name: XRAY Chest (1 view); Complete Time: 20:41 [facility] 04/17 19:34 Order name: EKG; Complete Time: 19:34 [facility] 04/17 19:34 Order name: Cardiac monitoring; Complete Time: 20:07 [facility] 04/17 19:34 Order name: EKG - Nurse/Tech; Complete Time: 20:46 [facility] 04/17 19:34 Order name: IV Saline Lock; Complete Time: 20:46 [facility] 04/17 19:35 Order name: Elbow Left 3 View XRAY; Complete Time: 20:41 [facility] 04/17 19:35 Order name: Knee Right 3 View XRAY; Complete Time: 20:41 [facility] 04/17 19:35 Order name: CT Head Brain wo Cont; Complete Time: 20:41 [facility] 04/17 21:56 Order name: Urine Microscopic Only; Complete Time: 22:24 [facility] 04/17 21:56 Order name: Urine Culture [facility] 04/17 22:09 Order name: Urine Dipstick-Ancillary; Complete Time: 22:11 [facility] 04/17 22:33 Order name: Blood Culture Adult (2) la1 04/17 19:34 Order name: Labs collected and sent; Complete Time: 20:46 7 04/17 19:34 Order name: O2 Per Protocol; Complete Time: 20:46 [facility] 04/17 19:34 Order name: O2 Sat Monitoring; Complete Time: 20:07 [facility] 04/17 19:34 Order name: Urine Dipstick-Ancillary (obtain specimen); Complete Time: 21:52 [facility] 04/17 21:09 Order name: Labs - recollect needed: CBC needed; Complete Time: 21:39 [facility] Administered Medications: 22:20 Drug: Cefepime 1 grams Route: IVPB; Rate: 200 ml/hr; Infused Over: 30 mins; Site: right tw5 forearm; 23:07 Follow up: IV Status: Infusion continued upon admission tw5 22:20 Drug: NS 0.9% 500 ml Route: IV; Rate: bolus; Site: right forearm; tw5 23:05 Follow up: IV Status: Infusion continued upon admission 5 22:37 Drug: Insulin Regular Human 10 units {Co-Signature: dorene (Vanesa De Leon RN).} Route: tw5 Sub-Q; Site: left upper arm; 23:05 Follow up: Response: No adverse reaction tw5 23:05 Drug: NS 0.9% 1000 ml Route: IV; Rate: 100 ml/hr; Site: left forearm; tw5 23:07 Follow up: IV Status: Infusion continued upon admission 5 Disposition Summary: 04/17/21 22:13 Hospitalization Ordered Hospitalization Status: Inpatient Admission [facility] Provider: Apolinar Ramirez [facility] Condition: Stable [facility] Problem: new [facility] Symptoms: have improved [facility] Bed/Room Type: Standard [facility] Room Assignment: 232(04/17/21 22:30) Diagnosis - Syncope [facility] - Generalized weakness [facility] - UTI/ Urinary tract infection, site not specified [facility] Forms: - Medication Reconciliation Form [facility] - SBAR form [facility] Signatures: Dispatcher [employer] Sherine Stevenson RN RN mw Bob Robles, EMAIL SPECIALIST-C EMAIL SPECIALIST-Alyssa1 Sandra Briscoe mw2 Eduardo Vital MD MD 7 Makayla Wiggins 5 Vanesa catherine Corrections: (The following items were deleted from the chart) 22:30 22:13 [facility] mw
[2021-04-17 22:19] LABS: Urine Bacteria 20-50 /HPF (NONE SEEN); Urine RBC <5 /HPF (NONE SEEN)
[2021-04-17] MEDS ORDERED: INSULIN -REGULAR HUMAN 50 UNIT/0.5 ML ML ONE (22:32)
[2021-04-17] MEDS ORDERED: NA CHLORIDE 0.9% 1,000 ML ONE (22:32)
--- NOTE | 2021-04-17 22:48 | P.HP ---
Certification for Inpatient Patient admitted to: Observation With expected LOS: <2 Midnights Patient will require the following post-hospital care: None Practitioner: I am a practitioner with admitting privileges, knowledge of patient current condition, hospital course, and medical plan of care. Services: Services provided to patient in accordance with Admission requirements found in Title 42 Section 412.3 of the Code of Federal Regulations Patient History Date of Service: 04/17/21 Primary Care Provider: Dr. Mcmanus Reason for admission: UTI, weakness History of Present Illness: 75-year-old male with history of diabetes most type IIinsulin- dependent, CKD 3, chronic back pain presents emergency department for frequent falls and weakness. Daughter reports patient also is running fever today. Patient was evaluated in the emergency department labs were significant for white blood cell count 15.6 hemoglobin 12.1 creatinine 1.66 GFR 41 glucose 323 magnesium 1.7 BNP 8690 urinalysis with trace leukocytes nitrite positive urine microscopic with 20-50 bacteria. Patient reports urinary symptoms over the course of the last couple weeks. 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 Patient was given IV antibiotics in the emergency department, blood and urine cultures were obtained in the emergency department wishes to admit for further evaluation and management. Patient did have multiple falls today had imaging of his chest, elbow, knee and head all of which were unremarkable for acute findings. 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 -: Right ankle -: Carotid surgery -: Bladder surgery Psychosocial/ Personal History: Patient is retired, lives at home with his - Family History Family History: Reviewed- Non-Contributory - Social History Smoking Status: Never smoker Alcohol use: No CD- Drugs: No Caffeine use: Yes Place of Residence: Home Review of Systems 10-point ROS is otherwise unremarkable General: Fever, Chills, Weakness, Malaise Genitourinary: Dysuria, Frequency, Urgency Physical Examination - Physical Exam General: Alert, In no apparent distress, Oriented x2 HEENT: Atraumatic, PERRLA, Other (Mucous membranes dry), EOMI, Sclerae nonicteric Neck: Supple, 2+ carotid pulse no bruit, No LAD, Without JVD or thyroid abnormality Respiratory: Clear to auscultation bilaterally, Normal air movement Cardiovascular: Regular rate/rhythm, Normal S1 S2 Gastrointestinal: Normal bowel sounds, No tenderness Musculoskeletal: No tenderness Integumentary: No rashes Neurological: Normal speech, Normal strength at 5/5 x4 extr, Normal tone, Normal affect Lymphatics: No axilla or inguinal lymphadenopathy - Studies Laboratory Data (last 24 hrs) 04/17/21 21:12: WBC 15.60 H, Hgb 12.1 L, Hct 37.1 L, Plt Count 170 04/17/21 20:35: PT 12.1, INR 1.05 04/17/21 20:35: Sodium 140, Potassium 4.1, BUN 26 H, Creatinine 1.66 H, Glucose 323 H, Magnesium 1.7 L, Total Bilirubin 0.8, AST 9 L, ALT 14, Alkaline Phosphatase 66 Assessment and Plan - Plan Assessment: Fever, leukocytosis secondary to urinary tract infection Generalized weakness, multiple falls related to above Diabetes mellitus type 2insulin-dependent with hyperglycemia CKD 3 Hypertension Plan: Fever, leukocytosis secondary to urinary tract infection: Continue IV antibiotics, urine and blood cultures were obtained. Will have patient evaluated by physical therapy, uses walker at home. Patient lives at home with his typically able to take care of himself. Generalized weakness, multiple falls related to above: Continue as above, evaluation with PT. Diabetes mellitus type 2insulin-dependent with hyperglycemia: Patient takes NPH 10 units daily, will provide with Lantus 10 units subcu daily in addition to sliding scale insulin. A1c with morning labs. CKD 3: Stable baseline, continue gentle hydration. Hypertension: Obtain and continue home medications DVT PPX: Heparin Code status: Full code Discharge Plan: Home Plan to discharge in: 24 Hours - Advance Directives Does patient have a Living Will: No Does patient have a Durable POA for Healthcare: No - Code Status/Comfort Care Code Status Assessed: Yes (Full code) Critical Care: No Time Spent Managing Pts Care (In Minutes): 55
[2021-04-17] MEDS ORDERED: ONDANSETRON 4 MG/2 ML VIAL IV PRN (23:30)
[2021-04-18 00:13] VITALS: BMI 18.6
[2021-04-18] MEDS: NA CHLORIDE 0.9% 1,000 ML IV SCH ×3 (00:36→14:36)
[2021-04-18] MEDS: ACETAMINOPHEN 500 MG TAB PO PRN (05:34)
[2021-04-18 05:42] LABS: Absolute Lymphocytes (CBC) 0.8 K/uL (0.7-4.9); Basophils % 0.2 % (0-1.3); Hematocrit 32.1 % (39.6-49.0); Lymphocytes % 4.5 % (15.3-44.8); MPV 9.5 fL (7.6-11.3); RBC Red Blood Cell Count 3.39 M/uL (4.33-5.43)
[2021-04-18 06:07] LABS: Albumin 2.7 g/dL (3.4-5.0); Potassium 3.5 mmol/L (3.5-5.1); Protein, Total 6.1 g/dL (6.4-8.2); Thyroid Stimulating Hormone 0.347 uIU/mL (0.360-3.740)
--- NOTE | 2021-04-18 06:30 | P.PN ---
Date of Service: 04/18/21 Subjective: No acute events overnight. Patient sleeping this morning, opens eyes and answers in short sentences Denies any new symptoms, but falling back asleep during conversation ROS: Unable to obtain full 10 point review of systems Physical exam GEN: Alert, oriented x2, NAD HEENT: Normal conjunctiva, sclera anicteric CV: Regular rate and rhythm, no edema Pulm: Nonlabored respirations on room air ABD: Soft, nontender, nondistended Integumentary: No rashes Neuro: mumbled speech, moves extremities Problem list Fever, leukocytosis secondary to urinary tract infection Acute metabolic encephalopathy secondary to UTI Generalized weakness, multiple falls related to above Diabetes mellitus type 2insulin-dependent with hyperglycemia CKD 3 Hypertension Fever, leukocytosis secondary to urinary tract infection: Given Rocephin in ED, changed to Levaquin Patient had recent multiorganism UTI 1 month ago. Recent instrumentation as well If worsens may need to broaden coverage, consider ID consult Generalized weakness, multiple falls related to above: Physical therapy ordered Diabetes mellitus type 2insulin-dependent with hyperglycemia: Patient takes NPH 10 units daily, will provide with Lantus 10 units subcu daily in addition to sliding scale insulin. CKD 3: Stable baseline, continue gentle hydration. Hypertension: Obtain and continue home medications as appropriate DVT PPX: Heparin Code: full Dispo: anticipate hospitalization > 2days Time Spent Managing Pts Care (In Minutes): 35
[2021-04-18] MEDS ORDERED: Levofloxacin 750mg IV 750 MG/150 ML BAG IV SCH (07:00)
[2021-04-18] MEDS: INSULIN -REGULAR HUMAN 50 UNIT/0.5 ML ML SQ SCH ×4 (07:30→20:36)
[2021-04-18] MEDS: HEPARIN 5000 UNIT/ML 1 ML VIAL SQ SCH ×2 (08:09→20:57)
[2021-04-18] MEDS: INSULIN GLARGINE 100 UNIT/ML SQ SCH (08:11)
[2021-04-18 08:17] LABS: Blood Morphology Comment NOT SEEN (NOT SEEN); Platelet Estimate ADEQ
[2021-04-18] MEDS ORDERED: INFLUENZA VACCINE (for 6+ mo) 0.5 ML DOSE IMVAC ONE (09:00)
[2021-04-18 16:50] LABS: Urine Appearance CLOUDY (Clear); Urine Bilirubin NEGATIVE (Negative); Urine Blood 3+ (Negative); Urine Color DK YELLOW (Yellow); Urine Glucose 2+ (Negative); Urine Protein 3+ (Negative); Urine Urobilinogen 0.2 mg/dL (0.2-1.0); Urine pH 5.5 (5.0-7.0)
[2021-04-18 16:52] LABS: Urine Microscopic Reflex ORDER UMIC
[2021-04-18 17:11] LABS: Urine Bacteria 20-50 /HPF (NONE SEEN)
[2021-04-18] MEDS: GLUCERNA SHAKE 237 ML CAN PO SCH (20:57)
[2021-04-19] MEDS: NA CHLORIDE 0.9% 1,000 ML IV SCH (03:22)
[2021-04-19 05:38] LABS: Absolute Lymphocytes (CBC) 1.8 K/uL (0.7-4.9); Basophils % 0.3 % (0-1.3); Hematocrit 34.2 % (39.6-49.0); Lymphocytes % 10.5 % (15.3-44.8); RBC Red Blood Cell Count 3.62 M/uL (4.33-5.43)
[2021-04-19 05:51] LABS: Albumin 2.4 g/dL (3.4-5.0); Bilirubin Total 0.6 mg/dL (0.2-1.0); Potassium 3.7 mmol/L (3.5-5.1); Protein, Total 6.1 g/dL (6.4-8.2)
--- NOTE | 2021-04-19 06:11 | P.PN ---
Date of Service: 04/19/21 Subjective: no acute events overnight. feels better continues with leukocytosis, procal elevated tolerating diet, reports constipation, chronic back pain states he doesn't want to stay, wants to go home ROS: 10 point review of systems otherwise negative Physical exam GEN: Alert, oriented x3, NAD HEENT: Normal conjunctiva, sclera anicteric CV: Regular rate and rhythm, no edema Pulm: Nonlabored respirations on room air ABD: Soft, nontender, nondistended Integumentary: No rashes Neuro: slurred speech, moves extremities Problem list Fever, leukocytosis secondary to urinary tract infection Acute metabolic encephalopathy secondary to UTI Generalized weakness, multiple falls related to above Diabetes mellitus type 2insulin-dependent with hyperglycemia CKD 3 Hypertension Fever, leukocytosis secondary to urinary tract infection: Given Rocephin in ED, changed to Levaquin and cefepime Patient had recent multiorganism UTI 1 month ago. Recent instrumentation as well Urine culture growing gram-negative rods Generalized weakness, multiple falls related to above: Physical therapy consulted Diabetes mellitus type 2insulin-dependent with hyperglycemia: Patient takes NPH 10 units daily, will provide with Lantus 10 units subcu daily in addition to sliding scale insulin. CKD 3: Stable baseline, continue gentle hydration. Hypertension: Obtain and continue home medications as appropriate DVT PPX: Heparin Code: DNR Dispo: Anticipate discharge home in 24 hours Time Spent Managing Pts Care (In Minutes): 35
[2021-04-19] MEDS: INSULIN GLARGINE 100 UNIT/ML SQ SCH (08:30)
[2021-04-19] MEDS: INSULIN -REGULAR HUMAN 50 UNIT/0.5 ML ML SQ SCH ×4 (08:30→21:00)
[2021-04-19] MEDS: GLUCERNA SHAKE 237 ML CAN PO SCH ×2 (09:00→21:00)
[2021-04-19] MEDS: CEFEPIME 1 GM in NA CHLORIDE 0.9% 100 ML IV SCH ×2 (09:20→21:56)
[2021-04-19] MEDS: HEPARIN 5000 UNIT/ML 1 ML VIAL SQ SCH ×2 (09:20→21:00)
[2021-04-19 12:40] VITALS: O2SAT 100
[2021-04-19] MEDS ORDERED: FLEET ENEMA ADULT PR PRN (14:38)
[2021-04-19] MEDS: ACETAMINOPHEN 500 MG TAB PO PRN (15:42)
[2021-04-19] MEDS ORDERED: HYDROCODONE/APAP 5/325 MG TAB PO PRN (15:55)
[2021-04-20 05:34] LABS: Absolute Lymphocytes (CBC) 1.8 K/uL (0.7-4.9); Basophils % 0.5 % (0-1.3); Hematocrit 30.3 % (39.6-49.0); Lymphocytes % 17.4 % (15.3-44.8); MPV 10.1 fL (7.6-11.3); RBC Red Blood Cell Count 3.23 M/uL (4.33-5.43)
[2021-04-20 05:53] LABS: Magnesium 2.1 mg/dL (1.8-2.4); Potassium 3.4 mmol/L (3.5-5.1)
[2021-04-20] MEDS ORDERED: Levofloxacin 750mg IV 750 MG/150 ML BAG IV SCH (07:00)
[2021-04-20] MEDS: INSULIN -REGULAR HUMAN 50 UNIT/0.5 ML ML SQ SCH (07:30)
--- NOTE | 2021-04-20 08:00 | P.DS ---
Admission Date: 04/18/21 Discharge Date: 04/20/21 Primary Care Provider: Dr. Mcmanus Disposition: ROUTINE DISCHARGE Discharge Condition: GOOD Reason for Admission: UTI, weakness Procedures: Problem list Fever, leukocytosis secondary to urinary tract infection Acute metabolic encephalopathy secondary to UTI Generalized weakness, multiple falls related to above Diabetes mellitus type 2insulin-dependent with hyperglycemia CKD 3 Hypertension Brief History of Present Illness: 75-year-old male with history of diabetes most type IIinsulin- dependent, CKD 3, chronic back pain presents emergency department for frequent falls and weakness. Daughter reports patient also is running fever today. Patient was evaluated in the emergency department labs were significant for white blood cell count 15.6 hemoglobin 12.1 creatinine 1.66 GFR 41 glucose 323 magnesium 1.7 BNP 8690 urinalysis with trace leukocytes nitrite positive urine microscopic with 20-50 bacteria. Patient reports urinary symptoms over the course of the last couple weeks. 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 Patient was given IV antibiotics in the emergency department, blood and urine cultures were obtained in the emergency department wishes to admit for further evaluation and management. Patient did have multiple falls today had imaging of his chest, elbow, knee and head all of which were unremarkable for acute findings. Hospital Course: Patient was treated empirically with IV antibiotics, IV fluids, monitored closely. He had some initial improvement of his symptoms of a worsening of his inflammatory markers and remained febrile. On the morning after admission, patient stated he wanted to leave AGAINST MEDICAL ADVICE. His daughter came to brick picker the patient and agreed with the patient that he had decision-making ca pacity, he was feeling better, and understood the risks of leaving AGAINST MEDICAL ADVICEof even potential of leaving early. Urine cultures had not resulted yet, and he had a recent UTI due to multiorganisms. After signing the AMA paperwork, the family decided to talk the patient into staying. He continued to improve, he had resolution of his leukocytosis and CHARU. Remained afebrile for 24 hours. Urine culture grew Pseudomonas. Patient discharged home with 7 days of Levaquin Vital Signs/Physical Exam: Temp Pulse Resp BP Pulse Ox 97.5 F 64 17 122/59 L 95 04/20/21 04:00 04/20/21 04:00 04/20/21 04:00 04/20/21 04:00 04/20/21 04:00 General: Alert, In no apparent distress, Oriented x3 HEENT: Mucous membr. moist/pink, Sclerae nonicteric Neck: No LAD Respiratory: Clear to auscultation bilaterally Cardiovascular: No edema, Regular rate/rhythm Gastrointestinal: Soft and benign, Non-distended, No tenderness Musculoskeletal: No tenderness Integumentary: No rashes Neurological: Normal affect, Abnormal speech (Slurred, chronic) Laboratory Data at Discharge: WBC 10.10 K/uL (4.3-10.9) D 04/20/21 04:59 Hgb 10.1 g/dL (13.6-17.9) L 04/20/21 04:59 Hct 30.3 % (39.6-49.0) L 04/20/21 04:59 Plt Count 161 K/uL (152-406) 04/20/21 04:59 PT 12.1 SECONDS (9.5-12.5) 04/17/21 20:35 INR 1.05 04/17/21 20:35 Sodium 141 mmol/L (136-145) 04/20/21 04:59 Potassium 3.4 mmol/L (3.5-5.1) L 04/20/21 04:59 BUN 39 mg/dL (7-18) H 04/20/21 04:59 Creatinine 1.30 mg/dL (0.55-1.3) 04/20/21 04:59 Glucose 166 mg/dL (74-106) H 04/20/21 04:59 Magnesium 2.1 mg/dL (1.8-2.4) 04/20/21 04:59 Total Bilirubin 0.6 mg/dL (0.2-1.0) 04/19/21 04:59 AST 30 U/L (15-37) 04/19/21 04:59 ALT 18 U/L (12-78) 04/19/21 04:59 Alkaline Phosphatase 70 U/L (45-117) 04/19/21 04:59 Triglycerides 74 mg/dL (<150) 04/18/21 05:20 Cholesterol 129 mg/dL (<200) 04/18/21 05:20 HDL Cholesterol 55 mg/dL (40-60) 04/18/21 05:20 Cholesterol/HDL Ratio 2.35 04/18/21 05:20 Home Medications: Hydrocodone/Acetaminophen [Hydrocodone-Acetamin 5-325 mg] 1 tab PO SEECOM PRN 04/18/21 levoFLOXacin [Levaquin] 750 mg PO DAILY 7 Days #7 tab 04/20/21 New Medications: levoFLOXacin [Levaquin] 750 mg PO DAILY 7 Days #7 tab Physician Discharge Instructions: You were found to have a urinary tract infection and improved with antibiotics. Your urine grew pseudomonas (bacteria). Discharged home with 7 days of levaquin (antibiotic). Follow up with your PCP within 3-5 days. Follow up with your Urologist in the next few weeks. Diet: ADA Activity: Ad adelita Followup: Estevan Walker MD [ACTIVE - CAN ADMIT] - Time spent managing pt's care (in minutes): 45
[2021-04-20] MEDS: GLUCERNA SHAKE 237 ML CAN PO SCH (08:14)
[2021-04-20] MEDS: INSULIN GLARGINE 100 UNIT/ML SQ SCH (08:14)
[2021-04-20] MEDS: CEFEPIME 1 GM in NA CHLORIDE 0.9% 100 ML IV SCH (08:15)
[2021-04-20] MEDS: HEPARIN 5000 UNIT/ML 1 ML VIAL SQ SCH (08:16)
[2021-04-20 08:31] VITALS: BP 123/58; TEMP 98.7
== END 2021-04-20 10:36 | disposition home or self-care (01) | DRG 689 ==
LOC: ER 19:15 → ERHOLD 22:31 → OBSVTOIN 22:31 → INTOOBSV 22:31 → 2ND 22:45 → OBSVTOIN 04-18 11:58
PROVIDERS: ADMIT Hospitalist; ATTEND Hospitalist
DX: N39.0 Urinary tract infection, site not specified (principal); E43 Unspecified severe protein-calorie malnutrition; G93.41 Metabolic encephalopathy; Z68.1 Body mass index [BMI] 19.9 or less, adult; N17.9 Acute kidney failure, unspecified; L89.152 Pressure ulcer of sacral region, stage 2; F17.220 Nicotine dependence, chewing tobacco, uncomplicated; E11.22 Type 2 diabetes mellitus with diabetic chronic kidney disease; E78.5 Hyperlipidemia, unspecified; E11.65 Type 2 diabetes mellitus with hyperglycemia; I12.9 Hypertensive chronic kidney disease with stage 1 through stage 4 chronic kidney disease, or unspecified chronic kidney disease; N18.30 Chronic kidney disease, stage 3 unspecified; B96.5 Pseudomonas (aeruginosa) (mallei) (pseudomallei) as the cause of diseases classified elsewhere; W18.30XA Fall on same level, unspecified, initial encounter; Z79.4 Long term (current) use of insulin; Z66 Do not resuscitate; Z89.411 Acquired absence of right great toe; Z79.82 Long term (current) use of aspirin; Z79.899 Other long term (current) drug therapy; Z20.822 Contact with and (suspected) exposure to COVID-19; Z23 Encounter for immunization
CPT/HCPCS: 0240U; 36415; 70450; 71045; 80048; 80053; 80061; 80076; 81003; 81015; 82947; 83036; 83735; 83880; 84145; 84439; 84443; 84484; 85025; 85610; 87040; 87077; 87086; 87088; 87186; 90471; 93005; 96365; 96372; 97110; 97161; 97530; 99285; G0378; J0692; J1644; J7030; J7040; Q2035

== ENCOUNTER 2021-05-20 12:13 | Inpatient (IN) | payer OTHER ==
--- OUTSIDE RECORDS SUMMARY | 2021-05-20 12:17 | XMS REPORT | Continuity of Care Document ---
:1945 Author Organization [facility] t Address [address] [place] [address] Care Team Providers Name Role Phone Aaron WAGONER Primary Care Physician Cristiano WAGONER, K.H. 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 Added automatic ally from request for surgery [id number] Bladder Bladder Disease Active 2020-04 Overview: Univ ers mass mass 04-28 Formattin ity of 00:00: g of this [place] note Medical might be Branch different from the original. Added automatic ally from request for surgery [id number] Gross Gross Disease Active 2020-04 Overview: Univer s hematuria hematuria 04-28 Formattin i ty of 00:00: g of this note Medical might be Branch different from the original. Added automatic ally from request for surgery [id number] Allergies, Adverse Reactions, Alerts This patient has no known allergies or adverse reactions. Social History Social Habit Start Date Stop Date Quantity Comments Source History of Chews Tobacco [facility] tobacco use [facility] Exposure to Not sure University of SARS-CoV-2 [facility] (event) Branch Alcohol intake 2021-05-04 2021-05-04 0 /d University of 00:00:00 00:00:00 [facility] Tobacco use and 2015-10-10 2015-10-10 Current user Univers ity of exposure 00:00:00 00:00:00 [facility] Sex Ass[birth year] At [birth year] Univers[facility] 00:00:00 00:00:00 [facility] Smoking Status Start Date Stop Date Source Former smoker 2015-10-10 00:00:00 2015-10-10 00:00:00 [facility] of [facility] Medications Ordered Filled Start Stop Current Ordering Indication Dosage Frequency Signature Comments Components Source Medication Medication Date Date Medication? Clinician (SIG) Name Name HYDROcodone Yes 1{tbl} Take 1 Un tamiko -acetaminop 1-07 tablet by ity of hen 5-325 14:55: mouth 3 [place] mg tablet 14 (three) Medical times Branch daily. aspirin 81 Yes Take by Uni vers mg Cap 1-07 mouth. ity of 14:55: [place] 14 [facility] acetaminoph 2020-04- Yes [id number] 650mg Take 2 Univers en 05-06 11-10 tablets by ity of (TYLENOL) 00:00: 05:59 mouth [place] 325 mg 00 :00 every 6 Medical tablet (six) Branch hours as needed for Pain (scale 4-6). ONE TOUCH Yes USE 3 Univers DELICA 33 6-30 TIMES A ity of gauge Misc 00:00: DAY [place] [facility] ONE TOUCH Yes USE 3 Univers DELICA 33 6-30 TIMES A ity of gauge Misc 00:00: DAY [facility] Branch BD INSULIN Yes Univers SYRINGE 6-12 ity of ULTRA-FINE 00:00: [place] 0.5 mL 31 Medical gauge x Branch 5/16 Syrg BD INSULIN Yes Univers SYRINGE 6-12 ity of ULTRA-FINE 00:00: [place] 0.5 mL 31 Medical gauge x Branch 5/16 Syrg traMADOL Yes Univers (ULTRAM) 50 5-27 ity of mg tablet 00:00: [facility] Branch traMADOL Yes Univers (ULTRAM) 50 5-27 ity of mg tablet 00:00: [facility] Branch gabapentin Yes 600mg 600 mg. Uni vers (NEURONTIN) 5-23 ity of 100 mg 00:00: [place] capsule 00 Medical Branch gabapentin Yes Univers (NEURONTIN) 5-23 ity of 100 mg 00:00: [place] capsule 00 Medical Branch ramipril Yes Univers (ALTACE) 10 5-14 ity of mg capsule 00:00: [place] [facility] ramipril Yes Univers (ALTACE) 10 5-14 ity of mg capsule 00:00: 00 Medical Branch ONETOUCH Yes Univers ULTRA TEST 4-29 ity of strip 00:00: [place] [facility] ONETOUCH Yes Univers ULTRA TEST 4-29 ity of strip 00:00: [place] 00 Medical Branch hydrOXYzine Yes Univer s (ATARAX) 50 4-12 ity of mg tablet 00:00: [place] 00 Medical Branch pravastatin Yes Univer s (PRAVACHOL) 4-12 ity of 40 mg 00:00: [place] tablet 00 Medical Branch hydrOXYzine Yes Univer s (ATARAX) 50 4-12 ity of mg tablet 00:00: [place] [facility] pravastatin Yes Univer s (PRAVACHOL) 4-12 ity of 40 mg 00:00: [place] tablet 00 Medical Branch HUMULIN Yes Univers 70/30 100 4-11 ity of unit/mL 00:00: [place] (70-30) 00 Medical suspension Branch HUMULIN Yes Univers 70/30 100 4-11 ity of unit/mL 00:00: [place] (70-30) 00 Medical suspension Branch rOPINIRole Yes Univers (REQUIP) 4-01 ity of 0.25 mg 00:00: [place] tablet 00 Medical Branch rOPINIRole 0 Yes Univers (REQUIP) 4-01 ity of 0.25 mg 00:00: [place] tablet 00 Medical Branch Vital Signs Vital Name Observation Time Observation Value Comments Source Systolic blood 2021-05-04 20:49:00 106 mm[Hg] Univer sity of pressure [facility] Diastolic blood 2021-05-04 20:49:00 66 mm[Hg] Unive rsity of pressure [facility] Heart rate 2021-05-04 20:49:00 77 /min Universi [facility] of [facility] Respiratory rate 2021-05-04 20:49:00 20 /min [facility] Body height 2021-05-04 20:49:00 195.6 cm [facility] Body weight 2021-05-04 20:49:00 68.947 kg [facility] BMI 2021-05-04 20:49:00 18.02 kg/m2 [facility] Oxygen saturation in 2021-05-04 20:49:00 99 /min [facility] Arterial blood by [facility] Pulse oximetry Branch Procedures Procedure Date / Time Performed Performing Clinician Sourc e CONSENT/REFUSAL FOR 2021-01-22 21:54:28 Doctor Unassigned, No Un [facility] DIAGNOSIS AND Name Medical [place] [facility] Encounters Start End Encounter Admission Attending Care Care Encounter Source Date/Time Date/Time Type Type Clinicians Facility Department ID 2021-05-04 2021-05-04 Office Cristiano HITAY [id number] Univers 14:30:00 15:19:50 Visit Whitney YIP [id number] ity of [id number] [id number] Or dical NAL 9 Branch BUILDING 2021-01-22 2021-01-22 Orders Doctor TRUONG [id number] Univers 00:00:00 00:00:00 Only Unassigned, SALLY [id number] ity of [place] [facility] [id number] [place] as [id number] [facility] [place] [facility] 009 Branch Results This patient has no known results.
[2021-05-20] MEDS ORDERED: NA CHLORIDE 0.9% 1,000 ML ONE ×2 (12:31→21:43)
[2021-05-20 12:43] LABS: Hematocrit 32.9 % (39.6-49.0); Lymphocytes % 15.9 % (15.3-44.8)
--- NOTE | 2021-05-20 13:46 | RAD REPORT ---
EXAM DESCRIPTION: RAD - Chest Single View - 05/20/2021 1:31 pm CLINICAL HISTORY: recent COVID, cough COMPARISON: Chest Single View dated 04/17/2021; Chest Single View dated 03/11/2021; Chest Single Vie w dated 12/29/2017; Chest Pa And Lat (2 Views) dated 05/05/2017 FINDINGS: Lines: None. Lungs: Coarsened interstitial markings bilaterally. Mild nonspecific opacities at the left lung base which are new. Pleural: No significant pleural effusions or pneumothorax. Cardiac: The heart size is within normal limits. Bones: No acute fractures. Other: IMPRESSION: New mild left basilar opacities could reflect pneumonia.
[2021-05-20] MEDS ORDERED: CEFTRIAXONE 1000 MG/VIAL ONE (14:24)
[2021-05-20] MEDS ORDERED: NA CHLORIDE 0.9% 250 ML ONE (14:25)
[2021-05-20] MEDS ORDERED: AZITHROMYCIN 500 MG INJ IVPB ONE (14:25)
[2021-05-20] MEDS ORDERED: NA CHLORIDE 0.9% 50 ML ONE (14:25)
[2021-05-20] MEDS ORDERED: METHYLPREDNISOLONE 125 MG INJ ONE (16:24)
--- NOTE | 2021-05-20 17:17 | ER ---
Nurse's Notes [facility] Name: Bry Hickey III Age: 75 yrs Sex: Male : 1945 Arrival Date: 05/20/2021 Time: 12:14 Bed 28 Private MD: Diagnosis: Pneumonia due to SARS-associated coronavirus;Muscle weakness (generalized);Dehydration Presentation: 05/20 12:16 Chief complaint: EMS states: Toned out for general malaise, pt's reported he's jl7 getting over covid and she thinks he's dehydrated. Pt states "I'm here to see a doctor about having surgery on my back because I can't walk and my daughter has to take care of me.". Coronavirus screen: At this time, the client does not indicate any symptoms associated with coronavirus-19. Ebola Screen: No symptoms or risks identified at this time. Initial Sepsis Screen: Does the patient meet any 2 criteria? No. Patient's initial sepsis screen is negative. Does the patient have a suspected source of infection? No. Patient's initial sepsis screen is negative. Risk Assessment: Do you want to hurt yourself or someone else? Patient reports no desire to harm self or others. Onset of symptoms is unknown. Care prior to arrival: IV initiated. 18 GA, in the right antecubital area, Glucose check: 162. 12:16 Method Of Arrival: EMS: [facility] 12:16 Acuity: DOMINIQUE 3 jl7 Triage Assessment: 12:22 General: Appears in no apparent distress. uncomfortable, Behavior is cooperative. Pain: [facility] Complains of pain in back Pain currently is 5 out of 10 on a pain scale. Pain began years ago. Is continuous. Neuro: Level of Consciousness is awake, alert, obeys commands, Oriented to person, place, time, situation. Cardiovascular: Denies chest pain, Patient's skin is warm and dry. Respiratory: Airway is patent Respiratory effort is even, unlabored, Respiratory pattern is regular, symmetrical, Denies shortness of breath. Derm: Skin is pink, warm \\T\\ dry. Musculoskeletal: Swelling absent. Historical: - Allergies: 12:22 No Known Allergies; jl7 - Home Meds: 12:22 hydrocodone-acetaminophen 5-325 mg Oral tab 1 tab every 6 hours for Pain [Active]; jl7 Novolin N NPH U-100 Insulin 100 unit/mL Sub-Q crtg [Active]; gabapentin 100 mg oral cap [Active]; hydroxyzine HCl 50 mg Oral tab [Active]; pravastatin 40 mg oral tab [Active]; tamsulosin 0.4 mg oral cap [Active]; ramipril 10 mg Oral cap [Active]; - PMHx: 12:22 chronic back pain; diabetes mellitus; Hypercholesterolemia; Hypertensive disorder; jl7 - Immunization history:: Client reports receiving the 2nd dose of the Covid vaccine. - Social history:: Smoking status: Patient denies any tobacco usage or history of. Smoking status: Patient reports use of chewing tobacco. - Family history:: not pertinent. - Hospitalizations: : No recent hospitalization is reported. Screenin:26 Abuse screen: Denies threats or abuse. Denies injuries from another. Nutritional jl7 screening: No deficits noted. Tuberculosis screening: No symptoms or risk factors identified. Fall Risk IV access (20 points). Total [place] Fall Scale indicates No Risk (0-24 pts). Assessment: 14:46 Reassessment: Patient appears in no apparent distress at this time. No changes from ic1 previously documented assessment. called and given update with permission of pt. 17:55 Reassessment: Patient appears in no apparent distress at this time. No changes from ic1 previously documented assessment. Patient and/or family updated on plan of care and expected duration. Pain level reassessed. Patient is alert, oriented x 3, equal unlabored respirations, skin warm/dry/pink. Patient denies pain at this time. Vital Signs: 12:16 BP 126 / 70; Pulse 81; Resp 17 S; Temp 98.2(O); Pulse Ox 95% on R/A; Weight 74.39 kg jl7 (R); Height 6 ft. 6 in. (198.12 cm) (R); Pain 5/10; 13:19 BP 142 / 57; Pulse 65; Resp 18; Pulse Ox 95% on R/A; ic1 14:30 BP 138 / 52; Pulse 69; Resp 15; Pulse Ox 100% ; jl7 15:15 BP 98 / 60; Pulse 71; Resp 15; Pulse Ox 97% ; jl7 16:00 BP 117 / 48; Pulse 71; Resp 16; Pulse Ox 98% ; jl7 18:33 BP 148 / 62; Pulse 60; Resp 16; Pulse Ox 99% ; ic1 12:16 Body Mass Index 18.95 (74.39 kg, 198.12 cm) jl7 ED Course: 12:14 Patient arrived in ED. eb 12:15 Omega Vega, RN is Primary Nurse. jl7 12:17 Marcellus Ramirez MD is Attending Physician. rn 12:22 Triage completed. jl7 12:22 Arm band placed on right wrist. jl7 12:26 Patient has correct armband on for positive identification. Bed in low position. Call jl7 light in reach. Side rails up X 1. color television console monitor on. Pulse ox on. NIBP on. Warm blanket given. 12:26 Initial lab(s) drawn, by ED staff, sent to lab. Maintain EMS IV. Dressing intact. Good 7 blood return noted. Site clean \\T\\ dry. Gauge \\T\\ site: 18 right AC. 12:27 Basic Metabolic Panel Sent. ic1 12:28 CBC with Diff Sent. ic1 13:31 XRAY Chest (1 view) In Process Unspecified. EDMS 17:16 Apolinar Ramirez MD is Hospitalizing Provider. rn 17:19 CT Chest For PE Angio In Process Unspecified. EDMS 17:55 color television console monitor on. Pulse ox on. NIBP on. Door closed. Noise minimized. Lights dimmed. ic1 Warm blanket given. Head of bed elevated. 05/21 08:06 Primary Nurse role handed off by Omega Vega RN bd 16:44 No provider procedures requiring assistance completed. [facility] Administered Medications: 05/20 12:38 Drug: NS 0.9% 1000 ml Route: IV; Rate: 1000 ml; Site: right antecubital; Delivery: ic1 Primary tubing; 14:42 Follow up: Response: No adverse reaction; IV Status: Completed infusion; IV Intake: jl7 1000ml 14:35 Drug: Rocephin (cefTRIAXone) 1 grams Route: IV; Rate: calculated rate; Site: right jl7 antecubital; 14:40 Follow up: Response: No adverse reaction; IV Status: Completed infusion jl7 14:41 Drug: Zithromax (azithromycin) 500 mg Route: IVPB; Infused Over: 1 hrs; Site: right jl7 antecubital; 16:24 Drug: SOLU-Medrol (methylPrednisoLONE) 125 mg Route: IVP; Site: right forearm; ic1 Intake: 14:42 IV: 1000ml; Total: 1000ml. jl7 Outcome: 17:17 Decision to Hospitalize by Provider. manjit 05/21 16:44 Admitted to Tele accompanied by tech, via stretcher, Report called to petr wei Condition: good Instructed on the need for admit. 16:45 Patient left the ED. iw Signatures: Dispatcher [employer] EDMS Connie Arias Irene, RN RN iw Marcellus Ramirez MD MD rn Leal, Jahala, RN RN jl7 Lakeisha Morales Jennifer RN RN 6 Christelle Navarro RN RN ic1 Corrections: (The following items were deleted from the chart) 05/20 12:24 12:22 Allergies: Aspirin; jl7 jl7 12:27 12:27 General: Appears in no apparent distress. uncomfortable, Behavior is calm, jl7 cooperative, Reports Pt c/o chronic back pain. ic1
--- NOTE | 2021-05-20 17:17 | EDPHYS ---
Physician Documentation [facility] Name: Bry Hickey III Age: 75 yrs Sex: Male : 1945 Arrival Date: 05/20/2021 Time: 12:14 Bed 28 Private MD: ED Physician Marcellus Ramirez HPI: 05/20 17:12 This 75 yrs old Male presents to ER via EMS with complaints of Generalized weakness and rn cough. 17:12 states called 911 for generalized weakness that has gotten worse over the last rn week. Patient tested positive for COVID last week. states decreased appetite and not eating or drinking as well as mild cough. Patient basically bedbound for the last year.. Onset: The symptoms/episode began/occurred 1 week(s) ago. Severity of symptoms: At their worst the symptoms were moderate in the emergency department the symptoms are unchanged. The patient has not experienced similar symptoms in the past. The patient has not recently seen a physician. Historical: - Allergies: 12:22 No Known Allergies; jl7 - Home Meds: 12:22 hydrocodone-acetaminophen 5-325 mg Oral tab 1 tab every 6 hours for Pain [Active]; jl7 Novolin N NPH U-100 Insulin 100 unit/mL Sub-Q crtg [Active]; gabapentin 100 mg oral cap [Active]; hydroxyzine HCl 50 mg Oral tab [Active]; pravastatin 40 mg oral tab [Active]; tamsulosin 0.4 mg oral cap [Active]; ramipril 10 mg Oral cap [Active]; - PMHx: 12:22 chronic back pain; diabetes mellitus; Hypercholesterolemia; Hypertensive disorder; jl7 - Immunization history:: Client reports receiving the 2nd dose of the Covid vaccine. - Social history:: Smoking status: Patient denies any tobacco usage or history of. Smoking status: Patient reports use of chewing tobacco. - Family history:: not pertinent. - Hospitalizations: : No recent hospitalization is reported. ROS: 17:12 Constitutional: Negative for fever, chills Eyes: Negative for injury, pain, redness, rn and discharge, Neck: Negative for injury, pain, and swelling, Cardiovascular: Negative for chest pain, palpitations, and edema, Respiratory: Positive for cough Abdomen/GI: Negative for abdominal pain, nausea, vomiting, diarrhea, and constipation, Back: Negative for injury and pain, : Negative for injury, bleeding, discharge, and swelling, MS/Extremity: Negative for injury and deformity, Skin: Negative for injury, rash, and discoloration, Neuro: Positive for generalized weakness Exam: 17:12 Constitutional: Well-developed male, no acute distress, slow to respond, difficult to rn understand Head/Face: Normocephalic, atraumatic. Eyes: Periorbital areas with no swelling, redness, or edema. ENT: Dry mucous membranes, no stridor Cardiovascular: Regular rate and rhythm. No pulse deficits. Respiratory: No increased work of breathing, no retractions or nasal flaring. Wet cough with crackles at bases Abdomen/GI: Soft, nontender Skin: Dry, poor turgor. Cool extremities MS/ Extremity: Pulses equal, no cyanosis. Neuro: Awake and alert, GCS 15, not able to lift legs off of bed. 4 out of 5 strength bilateral upper extremities Vital Signs: 12:16 BP 126 / 70; Pulse 81; Resp 17 S; Temp 98.2(O); Pulse Ox 95% on R/A; Weight 74.39 kg jl7 (R); Height 6 ft. 6 in. (198.12 cm) (R); Pain 5/10; 13:19 BP 142 / 57; Pulse 65; Resp 18; Pulse Ox 95% on R/A; ic1 14:30 BP 138 / 52; Pulse 69; Resp 15; Pulse Ox 100% ; jl7 15:15 BP 98 / 60; Pulse 71; Resp 15; Pulse Ox 97% ; jl7 16:00 BP 117 / 48; Pulse 71; Resp 16; Pulse Ox 98% ; jl7 18:33 BP 148 / 62; Pulse 60; Resp 16; Pulse Ox 99% ; ic1 12:16 Body Mass Index 18.95 (74.39 kg, 198.12 cm) jl7 MDM: 12:17 Patient medically screened. rn 17:12 Differential Diagnosis COVID, pneumonia, dehydration, UTI, deconditioning. Data rn reviewed: vital signs, nurses notes, lab test result(s), radiologic studies, plain films, and as a result, I will admit patient. Counseling: I had a detailed discussion with the patient and/or guardian regarding: the historical points, exam findings, and any diagnostic results supporting the discharge/admit diagnosis, lab results, radiology results, the need for further work-up and treatment in the hospital. Response to treatment: the patient's symptoms have mildly improved after treatment, and as a result, I will admit patient. Admission orders: after a detailed discussion of the patient's condition and case, the admit orders are written by me. 05/20 12:18 Order name: CBC with Diff; Complete Time: 13:57 rn 05/20 12:18 Order name: Basic Metabolic Panel; Complete Time: 13:57 rn 05/20 12:18 Order name: Urine Microscopic Only; Complete Time: 17:38 rn 05/20 12:51 Order name: Glucose, Ancillary Testing; Complete Time: 13:57 [facility] 05/20 13:57 Order name: SARS-COV-2 RT PCR (Document "Date of Onset" if Symptomatic); Complete Time: eb 15:51 05/20 17:21 Order name: CRP [facility] 05/20 17:22 Order name: Urine Culture [facility] 05/20 18:45 Order name: Blood Culture Adult (2) la1 05/20 21:53 Order name: Glucose, Ancillary Testing [facility] 05/21 04:49 Order name: CBC with Automated Diff [facility] 05/21 05:00 Order name: Comprehensive Metabolic Panel [facility] 05/21 05:41 Order name: Manual Differential [facility] 05/21 05:57 Order name: Urinalysis [facility] 05/21 06:07 Order name: Urine Microscopic Only [facility] 05/20 12:18 Order name: IV Start; Complete Time: 12:28 rn 05/20 12:18 Order name: EKG; Complete Time: 12:18 rn 05/20 12:18 Order name: EKG - Nurse/Tech; Complete Time: 13:37 rn 05/20 12:18 Order name: Glucose Level; Complete Time: 12:54 rn 05/20 12:18 Order name: XRAY Chest (1 view); Complete Time: 13:57 rn 05/20 16:19 Order name: CT Chest For PE Angio; Complete Time: 17:38 rn 05/21 07:49 Order name: Glucose, Ancillary Testing [facility] 05/21 13:29 Order name: Blood Culture [facility] 05/21 13:29 Order name: Gram Stain--Aerobic Bottle [facility] 05/21 13:50 Order name: Gram Stain--Aerobic Bottle [facility] 05/21 14:44 Order name: Glucose, Ancillary Testing ED[facility] Administered Medications: 12:38 Drug: NS 0.9% 1000 ml Route: IV; Rate: 1000 ml; Site: right antecubital; Delivery: ic1 Primary tubing; 14:42 Follow up: Response: No adverse reaction; IV Status: Completed infusion; IV Intake: jl7 1000ml 14:35 Drug: Rocephin (cefTRIAXone) 1 grams Route: IV; Rate: calculated rate; Site: right jl7 antecubital; 14:40 Follow up: Response: No adverse reaction; IV Status: Completed infusion jl7 14:41 Drug: Zithromax (azithromycin) 500 mg Route: IVPB; Infused Over: 1 hrs; Site: right jl7 antecubital; 16:24 Drug: SOLU-Medrol (methylPrednisoLONE) 125 mg Route: IVP; Site: right forearm; ic1 Disposition Summary: 05/20/21 17:17 Hospitalization Ordered Hospitalization Status: Inpatient Admission rn Provider: Apolinar Ramirez rn Condition: Stable rn Problem: an ongoing problem rn Symptoms: have improved rn Bed/Room Type: Standard rn Location: Telemetry/MedSurg (Inpatient)(05/21/21 12:17) phil Room Assignment: [facility](05/21/21 12:17) ja Diagnosis - Pneumonia due to SARS-associated coronavirus rn - Muscle weakness (generalized) rn - Dehydration rn Forms: - Medication Reconciliation Form rn - SBAR form rn Signatures: Dispatcher [employer] EDMS Marcellus Ramirez MD MD rn Garcia, Cindy RN RN Omega Burerll RN Elgin Perry RN Christelle Watters, RN RN ic1 Corrections: (The following items were deleted from the chart) 12: 12:22 Allergies: Aspirin; jl7 jl7 19:23 17:17 Telemetry/MedSurg (Inpatient) manjit hayes 19: 17:17 rn freddy 05/21 12:17 05/20 19:[facility] phil 05/21 12:05/20 19:23 ERHOLD- cg phil
[2021-05-20 17:20] LABS: Urine Amorphous Sediment 1+ /HPF (NONE SEEN); Urine Bacteria <20 /HPF (NONE SEEN); Urine RBC <5 /HPF (NONE SEEN)
[2021-05-20 17:21] LABS: Urine Mucus SLIGHT /HPF (NONE SEEN)
--- NOTE | 2021-05-20 17:31 | RAD REPORT ---
EXAM DESCRIPTION: CT - Chest For Pe Angio - 05/20/2021 5:19 pm CLINICAL HISTORY: COVID;Cough COMPARISON: Chest Single View dated 05/20/2021 FINDINGS: Chest Wall: No suspicious thyroid nodules or pathologic lymphadenopathy. Lungs: Mild to moderate multifocal airspace disease. Portions of the lung bases are obscured from vie w. Pleura: Trace pleural effusions . Mediastinum/dong: No pathologic lymphadenopathy. Pulmonary arteries/Aorta: No filling defect identified. No aortic aneurysm. Heart: No significant pericardial effusion. Normal heart size. Coronary artery calcifications. Upper abdomen: Not included in the field of view. Bones: No acute abnormality. All CT scans are performed using dose optimization technique as appropriate and may include automated exposure control or mA/KV adjustment according to patient size. IMPRESSION: Negative for pulmonary embolism. Mild to moderate bilateral airspace disease concerning for multifocal pneumonia, including Covid-19.
--- NOTE | 2021-05-20 18:45 | P.HP ---
Certification for Inpatient Patient admitted to: Observation With expected LOS: <2 Midnights Patient will require the following post-hospital care: None Practitioner: I am a practitioner with admitting privileges, knowledge of patient current condition, hospital course, and medical plan of care. Services: Services provided to patient in accordance with Admission requirements found in Title 42 Section 412.3 of the Code of Federal Regulations Patient History Date of Service: 05/20/21 Primary Care Provider: Dr. Mcmanus Reason for admission: Pneumonia, weakness History of Present Illness: 75-year-old male with history of insulin-dependent diabetes mellitus type 2, hypertension, hyperlipidemia, chronic back pain presents emergency department for generalized weakness, back pain. Patient reports that he tested positive for COVID about a week ago. Patient was evaluated in the emergency department labs were significant for white blood cell count 12.5 hemoglobin 10.9 creatinine 1.52 GFR 45. Chest x-ray demonstrates new left-sided basilar suspected pneumonia. Patient was given Rocephin/Zithromax by ED provider who wishes to admit patient under observation for pneumonia/weakness. Patient only concern is receiving back surgery, explained to patient in detail that that is to be done on outpatient basis and he will be evaluated for his generalized weakness and pneumonia at this time. 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 moist/pink, EOMI, Sclerae nonicteric Neck: Supple, 2+ carotid pulse no bruit, No LAD Respiratory: Clear to auscultation bilaterally, Normal air movement Cardiovascular: Regular rate/rhythm, Normal S1 S2 Gastrointestinal: Normal bowel sounds, No tenderness Musculoskeletal: No tenderness Integumentary: No rashes Neurological: Normal speech, Normal strength at 5/5 x4 extr, Normal tone, Normal affect - Studies Laboratory Data (last 24 hrs) 05/20/21 12:23: Sodium 136, Potassium 4.0, BUN 45 H, Creatinine 1.52 H, Glucose 174 H 05/20/21 12:23: WBC 12.50 H, Hgb 10.9 L, Hct 32.9 L, Plt Count 288 Assessment and Plan - Plan Assessment: COVID-19 pneumonia with suspected superimposed bacterial pneumonia CHARU superimposed on CKD 3 Medical debility/generalized weakness with chronic back pain Diabetes mellitus type 2insulin-dependent Hypertension Hyperlipidemia Plan: COVID-19 pneumonia with suspected superimposed bacterial pneumonia: Continue with IV Rocephin/Zithromax, incentive spirometry. Physical therapy ordered as well gentle hydration for CHARU/CKD CHARU superimposed on CKD 3: Gentle IV fluids overnight, recheck renal function in the morning. Medical debility/generalized weakness with chronic back pain: Continue [place], PT consult in place. Patient requesting back surgery, informed that this will need to be arranged on outpatient basis. Patient any signs of acute neurological compromise/red flags for back pain. Diabetes mellitus type 2insulin-dependent: A [facility] Accu-Chek, sliding scale insulin. Hypertension: Obtain and continue home medications. Hyperlipidemia: Continue home medications DVT PPX: Lovenox Code status: DNR Discharge Plan: Home Plan to discharge in: 24 Hours - Advance Directives Does patient have a Living Will: No Does patient have a Durable POA for Healthcare: No - Code Status/Comfort Care Code Status Assessed: Yes (dnr) Critical Care: No Time Spent Managing Pts Care (In Minutes): 55
[2021-05-20] MEDS ORDERED: ALBUTEROL 2.5 MG/3 ML NEB SOL NEB PRN (19:39)
[2021-05-20] MEDS ORDERED: BENZONATATE 100 MG CAP PO PRN (19:39)
[2021-05-20] MEDS ORDERED: ONDANSETRON 4 MG/2 ML VIAL IV PRN (19:39)
[2021-05-20] MEDS ORDERED: INSULIN -REGULAR HUMAN 50 UNIT/0.5 ML ML ONE (21:44)
[2021-05-20] MEDS: NA CHLORIDE 0.9% 1,000 ML IV SCH (22:00)
[2021-05-20] MEDS: INSULIN -REGULAR HUMAN 50 UNIT/0.5 ML ML SQ SCH (22:00)
[2021-05-21 01:13] VITALS: BMI 18.6
[2021-05-21 04:48] LABS: Absolute Lymphocytes (CBC) 0.7 K/uL (0.7-4.9); Hematocrit 32.1 % (39.6-49.0); Lymphocytes % 6.9 % (15.3-44.8); MPV 8.9 fL (7.6-11.3); RBC Red Blood Cell Count 3.42 M/uL (4.33-5.43)
[2021-05-21 05:00] LABS: Albumin 2.2 g/dL (3.4-5.0); Bilirubin Total 0.7 mg/dL (0.2-1.0); Potassium 4.2 mmol/L (3.5-5.1); Protein, Total 6.7 g/dL (6.4-8.2)
[2021-05-21 05:41] LABS: Blood Morphology Comment NOT SEEN (NOT SEEN); Platelet Estimate ADEQ
[2021-05-21 05:54] LABS: Urine Appearance CLEAR (Clear); Urine Bilirubin NEGATIVE (Negative); Urine Blood NEGATIVE (Negative); Urine Color YELLOW (Yellow); Urine Glucose 2+ (Negative); Urine Protein 1+ (Negative); Urine Specific Gravity >=1.030 (1.005-1.030)
[2021-05-21 05:57] LABS: Urine Microscopic Reflex ORDER UMIC
[2021-05-21 06:06] LABS: Urine Bacteria <20 /HPF (NONE SEEN)
[2021-05-21 06:07] LABS: Urine RBC <5 /HPF (NONE SEEN)
--- NOTE | 2021-05-21 06:23 | P.PN ---
Date of Service: 05/21/21 Subjective: couldn't get comfortable in bed reports +Cough, slight shortness of breath continues with chronic back pain weakness ROS: 10 point ROS as noted above, otherwise negative Physical exam GEN: Alert, oriented, NAD HEENT: Normal conjunctiva, sclera anicteric CV: Regular rate and rhythm, no edema Pulm: Nonlabored respiration on room air, +b/l crackles, +cough ABD: Soft, nontender, nondistended Integumentary: No rashes Neuro: slurred speech (chronic), general weakness Problem List COVID-19 pneumonia with suspected superimposed bacterial pneumonia CHARU superimposed on CKD 3 Medical debility/generalized weakness with chronic back pain Diabetes mellitus type 2insulin-dependent Hypertension Hyperlipidemia Continue with IV Rocephin/Zithromax, incentive spirometry. PT ordered Gentle IVF for CHARU Continue norco, chronic back pain Patient requesting back surgery, /family state pain is chronic He has had increased weakness lately, unable to walk continue home meds VTE: lovenox Code: DNR Dispo: anticipate dc home in ~1-2 days Time Spent Managing Pts Care (In Minutes): 35
[2021-05-21] MEDS: INSULIN -REGULAR HUMAN 50 UNIT/0.5 ML ML SQ SCH ×4 (07:30→23:12)
[2021-05-21] MEDS ORDERED: CEFTRIAXONE 1000 MG/VIAL ONE (07:45)
[2021-05-21] MEDS ORDERED: AZITHROMYCIN 500 MG INJ IVPB ONE (07:45)
[2021-05-21] MEDS ORDERED: NA CHLORIDE 0.9% 100 ML ONE (07:46)
[2021-05-21] MEDS ORDERED: ENOXAPARIN 40 MG/0.4 ML SQ ONE (07:46)
[2021-05-21] MEDS ORDERED: NA CHLORIDE 0.9% 250 ML ONE (07:46)
[2021-05-21] MEDS ORDERED: INSULIN -REGULAR HUMAN 50 UNIT/0.5 ML ML ONE ×2 (07:46→14:36)
[2021-05-21] MEDS: ENOXAPARIN 40 MG/0.4 ML SQ SCH (07:57)
[2021-05-21] MEDS: CEFTRIAXONE 1,000 MG in NA CHLORIDE 0.9% 50 ML IVPB SCH (07:58)
[2021-05-21] MEDS ORDERED: PNEUMOCOCCAL VACCINE 0.5 ML IMVAC ONE (08:00)
--- NOTE | 2021-05-21 08:04 | EKG ---
Test Date: 2021-05-20 Test Time: 12:33:50 [employer] And Skin Classer: MARTIR MEASUREMENT RESULTS: Intervals: Rate: 83 AL: 134 QRSD: 118 QT: 414 QTc: 486 [place]: P: 25 AL: 134 QRS: -26 T: 84 INTERPRETIVE STATEMENTS: Sinus rhythm with premature supraventricular complexes and with occasional and consecutive premature ventricular complexes Nonspecific intraventricular conduction delay Nonspecific ST abnormality Prolonged QT Abnormal ECG Compared to ECG 04/17/2021 20:21:53 Ventricular premature complex(es) now present Intraventricular conduction delay now present ST (T wave) deviation now present Prolonged QT interval now present Sinus tachycardia no longer present Myocardial infarct finding no longer present Electronically Signed On 05-21-21 08:02:47 PHYSICIAN ASST by Quincy Mathew
[2021-05-21] MEDS: NA CHLORIDE 0.9% 1,000 ML IV SCH (08:59)
[2021-05-21] MEDS: AZITHROMYCIN IV 500 MG in NA CHLORIDE 0.9% 250 ML IVPB SCH (09:00)
[2021-05-21] MEDS ORDERED: NA CHLORIDE 0.9% 1,000 ML ONE (14:36)
[2021-05-22] MEDS: HYDROCODONE/APAP 5/325 MG TAB PO PRN ×2 (00:28→09:08)
[2021-05-22 03:53] LABS: Absolute Lymphocytes (CBC) 1.7 K/uL (0.7-4.9); Hematocrit 30.5 % (39.6-49.0); Lymphocytes % 5.7 % (15.3-44.8); RBC Red Blood Cell Count 3.27 M/uL (4.33-5.43)
[2021-05-22 04:20] LABS: Albumin 2.2 g/dL (3.4-5.0); Bilirubin Total 0.4 mg/dL (0.2-1.0); Ferritin 917.4 ng/mL (26-388); Potassium 3.9 mmol/L (3.5-5.1); Protein, Total 6.3 g/dL (6.4-8.2)
[2021-05-22 05:16] LABS: Blood Morphology Comment NOTED (NOT SEEN); Platelet Estimate ADEQ
[2021-05-22] MEDS: CEFTRIAXONE 1,000 MG in NA CHLORIDE 0.9% 50 ML IVPB SCH (09:08)
[2021-05-22] MEDS: ENOXAPARIN 40 MG/0.4 ML SQ SCH (09:09)
[2021-05-22] MEDS: NA CHLORIDE 0.9% 1,000 ML IV SCH ×3 (09:09→21:25)
[2021-05-22] MEDS: AZITHROMYCIN IV 500 MG in NA CHLORIDE 0.9% 250 ML IVPB SCH (09:10)
[2021-05-22] MEDS: INSULIN -REGULAR HUMAN 50 UNIT/0.5 ML ML SQ SCH ×4 (09:21→21:00)
[2021-05-22 10:35] LABS: Absolute Lymphocytes (CBC) 1.2 K/uL (0.7-4.9); Lymphocytes % 5.2 % (15.3-44.8); MPV 8.2 fL (7.6-11.3)
[2021-05-22 14:11] LABS: C-Reactive Protein 111.42
--- NOTE | 2021-05-22 17:04 | P.PN ---
Subjective Date of Service: 05/22/21 Primary Care Provider: Dr. Mcmanus Chief Complaint: Pneumonia, weakness Planing of generalized weakness. His WBC trended up significantly. Now with marked leukocytosis. No recorded fever. Physical Examination - Vital Signs Temperature: 97.9 F Blood Pressure: 137/67 Pulse: 72 Respirations: 16 Pulse Ox (%): 97 - Studies Microbiology Data (last 24 hrs): 05/20/21 18:30 Blood - Blood Blood Culture Gram Stain - Final 05/20/21 18:56 Blood - Blood Blood Culture Gram Stain - Final Assessment And Plan - Plan hysical exam GEN: Alert, oriented, NAD HEENT: Normal conjunctiva, sclera anicteric CV: Regular rate and rhythm, no edema Pulm: Nonlabored respiration on room air, +b/l crackles, +cough ABD: Soft, nontender, nondistended Integumentary: No rashes Neuro: slurred speech (chronic), general weakness Problem List COVID-19 pneumonia with suspected superimposed bacterial pneumonia CHARU superimposed on CKD 3 Medical debility/generalized weakness with chronic back pain Diabetes mellitus type 2insulin-dependent Hypertension Hyperlipidemia Leukocytosis trended up significantly. Change antibiotics to IV Rocephin and vancomycin. Repeat blood culture. UA with mild evidence of UTI. Urine culture yielded mixed growth. Continue PT Gentle IVF for CHARU Continue norco, chronic back pain He has had increased weakness lately, unable to walk. continue home meds. Will consider MRI of the thoracolumbar spine if her symptoms and pain persist. VTE: lovenox Code: DNR
[2021-05-22] MEDS ORDERED: POTASSIUM CL SA 10 MEQ TAB PO ONE (17:51)
[2021-05-22] MEDS ORDERED: VANCOMYCIN 1.75 GM in NA CHLORIDE 0.9% 500 ML IVPB ONE (18:00)
[2021-05-22] MEDS ORDERED: VANCOMYCIN 1 GM in NA CHLORIDE 0.9% 250 ML IVPB SCH (18:00)
[2021-05-23 03:46] LABS: Absolute Lymphocytes (CBC) 1.2 K/uL (0.7-4.9); Hematocrit 32.6 % (39.6-49.0); Lymphocytes % 7.7 % (15.3-44.8); MPV 9.1 fL (7.6-11.3); RBC Red Blood Cell Count 3.46 M/uL (4.33-5.43)
[2021-05-23 05:02] LABS: Potassium 3.8 mmol/L (3.5-5.1)
[2021-05-23] MEDS ORDERED: POTASSIUM CL SA 10 MEQ TAB PO ONE (08:00)
[2021-05-23] MEDS: INSULIN -REGULAR HUMAN 50 UNIT/0.5 ML ML SQ SCH ×4 (08:45→21:00)
[2021-05-23] MEDS: ENOXAPARIN 40 MG/0.4 ML SQ SCH (09:20)
[2021-05-23] MEDS: CEFTRIAXONE 1,000 MG in NA CHLORIDE 0.9% 50 ML IVPB SCH (09:25)
[2021-05-23] MEDS ORDERED: NA CHLORIDE 0.9% 0 ML ONE (09:25)
[2021-05-23] MEDS: NA CHLORIDE 0.9% 1,000 ML IV SCH (14:19)
--- NOTE | 2021-05-23 14:31 | P.PN ---
Subjective Date of Service: 05/23/21 Primary Care Provider: Dr. Mcmanus Chief Complaint: Pneumonia, weakness Patient has no new complaint today He appears slightly confused to me. No recorded fever. Leukocytosis trending down. Physical Examination - Vital Signs Temperature: 98.1 F Blood Pressure: 143/62 Pulse: 90 Respirations: 16 Pulse Ox (%): 93 - Studies Microbiology Data (last 24 hrs): 05/20/21 17:04 Clean Catch Urine [place] Count - Final BETWEEN 10,000 & 100,000 CFU/ML 05/20/21 17:04 Clean Catch Urine - Final MIXED MEY. 05/20/21 18:56 Blood - Blood Blood Culture Gram Stain - Final 05/20/21 18:30 Blood - Blood Blood Culture Gram Stain - Final Assessment And Plan - Plan hysical exam GEN: Alert, oriented, NAD HEENT: Normal conjunctiva, sclera anicteric CV: Regular rate and rhythm, no edema Pulm: b/l crackles. Adequate breath sounds bilaterally. ABD: Soft, nontender, nondistended Integumentary: No rashes Neuro: slurred speech (chronic), general weakness Problem List COVID-19 pneumonia with suspected superimposed bacterial pneumonia CHARU superimposed on CKD 3 Medical debility/generalized weakness with chronic back pain Diabetes mellitus type 2insulin-dependent Hypertension Hyperlipidemia 2 out of 4 blood cultures bottles grew coagulase-negative staph. WBC now trending down. Patient started on vancomycin yesterday. Continue IV Rocephin and vancomycin. Infectious disease consult. Repeat blood culture is pending. UA with mild evidence of UTI. Urine culture yielded mixed growth. Continue PT Gentle IVF for CHARU Continue norco, chronic back pain He has had increased weakness lately, unable to walk. continue home meds. Patient denied any back pain to me today. VTE: lovenox Code: DNR
[2021-05-23] MEDS ORDERED: VANCOMYCIN 1.25 GM in NA CHLORIDE 0.9% 250 ML IVPB SCH (18:00)
[2021-05-24] MEDS: NA CHLORIDE 0.9% 1,000 ML IV SCH ×2 (03:39→16:59)
[2021-05-24 03:52] LABS: Absolute Lymphocytes (CBC) 1.4 K/uL (0.7-4.9); Lymphocytes % 12.5 % (15.3-44.8); MPV 8.8 fL (7.6-11.3); RBC Red Blood Cell Count 3.42 M/uL (4.33-5.43)
[2021-05-24 04:05] LABS: Albumin 2.1 g/dL (3.4-5.0); Bilirubin Total 0.5 mg/dL (0.2-1.0); Potassium 3.6 mmol/L (3.5-5.1); Protein, Total 6.1 g/dL (6.4-8.2)
[2021-05-24] MEDS ORDERED: CEFTRIAXONE 1000 MG/VIAL ONE (08:18)
[2021-05-24] MEDS ORDERED: NA CHLORIDE 0.9% 50 ML ONE (08:20)
[2021-05-24] MEDS: INSULIN -REGULAR HUMAN 50 UNIT/0.5 ML ML SQ SCH ×4 (08:29→21:07)
[2021-05-24] MEDS: ENOXAPARIN 40 MG/0.4 ML SQ SCH (08:30)
[2021-05-24] MEDS: CEFTRIAXONE 1,000 MG in NA CHLORIDE 0.9% 50 ML IVPB SCH (08:45)
[2021-05-24] MEDS: BISACODYL 10 MG RECTAL SUPP PR PRN (13:12)
--- NOTE | 2021-05-24 13:15 | P.PN ---
Subjective Date of Service: 05/24/21 Primary Care Provider: Dr. Mcmanus Chief Complaint: Pneumonia, weakness Patient appears confused. He is generally weak, not able to get out of bed without assistance. No recorded fever. Leukocytosis trending down. Physical Examination - Vital Signs Temperature: 98.7 F Blood Pressure: 136/88 Pulse: 84 Respirations: 18 Pulse Ox (%): 95 - Studies Microbiology Data (last 24 hrs): 05/20/21 17:04 Clean Catch Urine [place] Count - Final BETWEEN 10,000 & 100,000 CFU/ML 05/20/21 17:04 Clean Catch Urine - Final MIXED MEY. 05/20/21 18:56 Blood - Blood Blood Culture Gram Stain - Final Assessment And Plan - Plan hysical exam GEN: Alert, oriented, NAD HEENT: Normal conjunctiva, sclera anicteric CV: Regular rate and rhythm, no edema Pulm: b/l crackles. Adequate breath sounds bilaterally. ABD: Soft, nontender, nondistended Integumentary: No rashes. Musculoskeletal: No back tenderness. Neuro: general weakness. No focal motor deficit. Problem List COVID-19 pneumonia with suspected superimposed bacterial pneumonia CHARU superimposed on CKD 3 Medical debility/generalized weakness with chronic back pain Diabetes mellitus type 2insulin-dependent Hypertension Hyperlipidemia 2 out of 4 blood cultures bottles grew coagulase-negative staph. WBC now trending down. Patient started on vancomycin. Repeat blood culture shows no growth. Patient received 4 days of IV Rocephin. He should complete antibiotic treatment for the UTI. We will discontinue Rocephin. Continue IV vancomycin. Awaiting infectious disease input. Continue PT CHARU resolved. Discontinue IV fluid. Oral feeding as tolerated Continue norco, chronic back pain He has had increased weakness lately, unable to walk. continue home meds. VTE: lovenox Code: DNR
[2021-05-24] MEDS: VANCOMYCIN 1.5 GM in NA CHLORIDE 0.9% 500 ML IVPB SCH (18:43)
[2021-05-24] MEDS: GLUCERNA SHAKE 237 ML CAN PO SCH (21:00)
[2021-05-25 03:55] LABS: Hematocrit 34.5 % (39.6-49.0); Lymphocytes % 10.1 % (15.3-44.8); RBC Red Blood Cell Count 3.64 M/uL (4.33-5.43)
[2021-05-25 04:23] LABS: Potassium 3.2 mmol/L (3.5-5.1)
[2021-05-25] MEDS: NA CHLORIDE 0.9% 1,000 ML IV SCH ×3 (06:19→19:39)
[2021-05-25] MEDS ORDERED: POTASSIUM CL SA 10 MEQ TAB PO ONE ×2 (06:59→15:15)
[2021-05-25] MEDS: INSULIN -REGULAR HUMAN 50 UNIT/0.5 ML ML SQ SCH ×4 (07:30→21:20)
[2021-05-25] MEDS: GLUCERNA SHAKE 237 ML CAN PO SCH ×2 (09:00→21:00)
[2021-05-25] MEDS: ENOXAPARIN 40 MG/0.4 ML SQ SCH (09:02)
--- NOTE | 2021-05-25 13:11 | CON ---
Reason For Consultation: This is a 75-year-old male we were consulted for evaluation of bacteremia. History Of Present Illness: The patient is a 75-year-old male coming in with significant history of insulin-dependent diabetes mellitus, hypertension, hyperlipidemia, chronic backache. He was suspecte d of COVID-19 pneumonia and was growing Staph hominis in his blood culture. The patient was admitted for further management. Past Medical History: Diabetes mellitus, hypertension, dyslipidemia, peripheral neuropathy, restless legs syndrome, CKD 3, chronic back pain. Social History: Nonsmoker, nondrinker. Family History: Noncontributory. Medications: Vancomycin. See MAR for other medications. Allergies: NO KNOWN DRUG ALLERGIES. Review of Systems: A 10-point review was performed. Physical Examination: General: This is a 75-year-old male, lying in bed, not in any acute cardiopulmonary distress. Vital Signs: Temperature 97.9, pulse 100, respirations 20, blood pressure 138/63. HEENT: Unremarkable. Neck: Supple. Lungs: Basal crackles, left more than right. Heart: S1, S2. Regular. Abdomen: Soft, nontender. Bowel sounds present. Extremities: Right leg with erythematous changes and some swelling and cold to touch. Laboratory Data: Shows WBC 10.4, hemoglobin 11.2, platelets are 364. His WBC has attended down from 30,000 to 10.4, currently being treated with vancomycin. Assessment And Plan: Bacteremia secondary to Staph hominis with left lower lobe pneumonia and COVID- 19 infection. The patient also has possible right lower extremity infection, possible cause of bacte remia versus pneumonia. Continue current treatment. Total course of 2 weeks. After blood cultures have been negative, can be switched to oral antibiotic on discharge. We will follow the patient clos dyan. Thank you Dr. Grissom for consult. NF/NEMOL Voice ID: [id number] Report ID: [id number]
--- NOTE | 2021-05-25 15:53 | P.PN ---
Subjective Date of Service: 05/25/21 Primary Care Provider: Dr. Mcmanus Chief Complaint: Pneumonia, weakness Patient remain confused According to social service, patient has been bedbound for some time. Leukocytosis resolved. Physical Examination - Vital Signs Temperature: 98.6 F Blood Pressure: 151/76 Pulse: 90 Respirations: 20 Pulse Ox (%): 93 - Physical Exam General: In no apparent distress, Confused Neck: Supple, JVD not distended Respiratory: Clear to auscultation bilaterally, Normal air movement Cardiovascular: No edema, Regular rate/rhythm Gastrointestinal: Soft and benign, Non-distended Musculoskeletal: No tenderness Integumentary: No rashes Neurological: Other - Studies Microbiology Data (last 24 hrs): 05/20/21 18:56 Blood - Blood Blood Culture Gram Stain - Final 05/20/21 18:30 Blood - Blood Blood Culture Gram Stain - Final Assessment And Plan - Plan Physical exam GEN: Alert, oriented, NAD CV: Regular rate and rhythm, no edema Pulm: Adequate breath sounds bilaterally. ABD: Soft, nontender, nondistended Integumentary: No rashes. Musculoskeletal: No back tenderness. Neuro: general weakness. No focal motor deficit. Problem List COVID-19 pneumonia with suspected superimposed bacterial pneumonia CHARU superimposed on CKD 3 Medical debility/generalized weakness with chronic back pain Diabetes mellitus type 2insulin-dependent Hypertension Hyperlipidemia 2 out of 4 blood cultures bottles grew coagulase-negative staph. Leukocytosis resolved. Patient is on vancomycin. Repeat blood culture shows no growth. Patient received 4 days of IV Rocephin. He should complete antibiotic treatment for the UTI. We will discontinue Rocephin. Infectious disease input appreciated. Patient will need 2 weeks of antibiotic for bacteremia. Per report patient is chronically bedbound. Family is looking at home with home health versus long-term care. CHARU resolved. Oral feeding as tolerated Continue norco for chronic back pain continue home meds. VTE: lovenox Code: DNR
[2021-05-25] MEDS: VANCOMYCIN 1.5 GM in NA CHLORIDE 0.9% 500 ML IVPB SCH (17:29)
[2021-05-26] MEDS: INSULIN -REGULAR HUMAN 50 UNIT/0.5 ML ML SQ SCH ×4 (08:56→21:00)
[2021-05-26] MEDS: GLUCERNA SHAKE 237 ML CAN PO SCH ×2 (08:57→21:00)
[2021-05-26] MEDS: ENOXAPARIN 40 MG/0.4 ML SQ SCH (08:57)
[2021-05-26] MEDS ORDERED: ACETAMINOPHEN 500 MG TAB PO PRN (09:39)
[2021-05-26] MEDS: NA CHLORIDE 0.9% 1,000 ML IV SCH ×2 (10:16→22:50)
[2021-05-26] MEDS: BISACODYL 10 MG RECTAL SUPP PR PRN (10:17)
--- NOTE | 2021-05-26 12:44 | P.PN ---
Subjective Date of Service: 05/26/21 Primary Care Provider: Dr. Mcmanus Chief Complaint: Pneumonia, weakness He is confused. Bedbound. He denies any pain Physical Examination - Vital Signs Temperature: 99.4 F Blood Pressure: 136/92 Pulse: 90 Respirations: 24 Pulse Ox (%): 92 - Studies Microbiology Data (last 24 hrs): 05/20/21 18:30 Blood - Blood Blood Culture Gram Stain - Final 05/20/21 18:30 Blood - Blood Anaerobic Blood Culture - Final No growth in 5 days. 05/20/21 18:56 Blood - Blood Blood Culture Gram Stain - Final 05/20/21 18:56 Blood - Blood Anaerobic Blood Culture - Final No growth in 5 days. Assessment And Plan - Plan Physical exam GEN: Confused, NAD CV: Regular rate and rhythm, no edema Pulm: Adequate breath sounds bilaterally. ABD: Soft, nontender, nondistended Integumentary: No rashes. Musculoskeletal: No back tenderness. Neuro: general weakness. No focal motor deficit. Problem List COVID-19 pneumonia with suspected superimposed bacterial pneumonia CHARU superimposed on CKD 3 Medical debility/generalized weakness with chronic back pain Diabetes mellitus type 2insulin-dependent Hypertension Hyperlipidemia 2 out of 4 blood cultures bottles grew staph hominis. Leukocytosis resolved. Patient is on vancomycin. Repeat blood culture shows no growth. Patient received 4 days of IV Rocephin. He should complete antibiotic treatment for the UTI. We will discontinue Rocephin. Seen by infectious disease. Patient will need 2 weeks of antibiotic for bacteremia. Per report patient is chronically bedbound. Family is looking at home with home health versus long-term care. CHARU resolved. Oral feeding as tolerated Continue norco for chronic back pain continue home meds. VTE: lovenox Code: DNR
[2021-05-26] MEDS: VANCOMYCIN 1.5 GM in NA CHLORIDE 0.9% 500 ML IVPB SCH (17:25)
[2021-05-27 04:24] LABS: Absolute Lymphocytes (CBC) 1.8 K/uL (0.7-4.9); Hematocrit 32.2 % (39.6-49.0); MPV 9.3 fL (7.6-11.3); RBC Red Blood Cell Count 3.43 M/uL (4.33-5.43)
[2021-05-27 04:31] LABS: Potassium 3.9 mmol/L (3.5-5.1)
[2021-05-27] MEDS ORDERED: POTASSIUM CL SA 10 MEQ TAB PO ONE (09:00)
[2021-05-27] MEDS: ENOXAPARIN 40 MG/0.4 ML SQ SCH (09:06)
[2021-05-27] MEDS: INSULIN -REGULAR HUMAN 50 UNIT/0.5 ML ML SQ SCH ×4 (09:07→21:00)
[2021-05-27] MEDS: GLUCERNA SHAKE 237 ML CAN PO SCH ×2 (09:07→21:00)
[2021-05-27] MEDS: NA CHLORIDE 0.9% 1,000 ML IV SCH (12:38)
--- NOTE | 2021-05-27 12:52 | P.PN ---
Subjective Date of Service: 05/27/21 Primary Care Provider: Dr. Mcmanus Chief Complaint: Pneumonia, weakness Patient has no complaint. He denies any pain Physical Examination - Vital Signs Temperature: 98.3 F Blood Pressure: 156/79 Pulse: 90 Respirations: 24 Pulse Ox (%): 92 - Studies Microbiology Data (last 24 hrs): 05/20/21 18:56 Blood - Blood Aerobic Blood Culture - Final Staph Hominis 05/20/21 18:56 Blood - Blood Blood Culture Gram Stain - Final 05/20/21 18:56 Blood - Blood Anaerobic Blood Culture - Final No growth in 5 days. 05/20/21 18:30 Blood - Blood Aerobic Blood Culture - Final Staph Hominis 05/20/21 18:30 Blood - Blood Blood Culture Gram Stain - Final 05/20/21 18:30 Blood - Blood Anaerobic Blood Culture - Final No growth in 5 days. Assessment And Plan - Plan Physical exam GEN: Confused, NAD CV: Regular rate and rhythm, no edema Pulm: Adequate breath sounds bilaterally. ABD: Soft, nontender, nondistended Integumentary: No rashes. Musculoskeletal: No back tenderness. Neuro: general weakness. No focal motor deficit. Problem List COVID-19 pneumonia with suspected superimposed bacterial pneumonia CHARU superimposed on CKD 3 Medical debility/generalized weakness with chronic back pain Diabetes mellitus type 2insulin-dependent Hypertension Hyperlipidemia 2 out of 4 blood cultures bottles grew staph hominis. Patient with leukocytosis again. I doubt this is related to sepsis. Continue vancomycin. Repeat blood culture shows no growth. Patient received 4 days of IV Rocephin. He should complete antibiotic treatment for the UTI. We will discontinue Rocephin. Seen by infectious disease. Patient will need 2 weeks of antibiotic for bacteremia. Per report patient is chronically bedbound. Family is looking at home with home health versus long-term care. CHARU resolved. Oral feeding as tolerated. Continue to monitor CBC to follow leukocytosis. VTE: lovenox Code: DNR
[2021-05-27] MEDS: VANCOMYCIN 1.5 GM in NA CHLORIDE 0.9% 500 ML IVPB SCH (17:20)
[2021-05-28] MEDS: NA CHLORIDE 0.9% 1,000 ML IV SCH ×2 (04:04→17:15)
[2021-05-28 04:06] LABS: Hematocrit 29.2 % (39.6-49.0); Lymphocytes % 14.5 % (15.3-44.8); MPV 8.8 fL (7.6-11.3); RBC Red Blood Cell Count 3.14 M/uL (4.33-5.43)
[2021-05-28 04:19] LABS: Potassium 3.7 mmol/L (3.5-5.1)
[2021-05-28] MEDS: GLUCERNA SHAKE 237 ML CAN PO SCH ×2 (09:00→21:00)
[2021-05-28] MEDS: ENOXAPARIN 40 MG/0.4 ML SQ SCH (09:24)
[2021-05-28] MEDS: INSULIN -REGULAR HUMAN 50 UNIT/0.5 ML ML SQ SCH ×4 (09:24→21:33)
[2021-05-28] MEDS: TAMSULOSIN 0.4 MG SR CAP PO SCH (13:14)
--- NOTE | 2021-05-28 13:14 | P.PN ---
Subjective Date of Service: 05/28/21 Primary Care Provider: Dr. Mcmanus Chief Complaint: Pneumonia, weakness Patient has no complaint. He denies any pain. He is able to sit edge of the bed. No recorded fever. Physical Examination - Vital Signs Temperature: 97.1 F Blood Pressure: 151/82 Pulse: 77 Respirations: 18 Pulse Ox (%): 93 Assessment And Plan - Plan Physical exam GEN: Confused, NAD CV: Regular rate and rhythm, no edema Pulm: Adequate breath sounds bilaterally. ABD: Soft, nontender, nondistended Integumentary: No rashes. Musculoskeletal: No back tenderness. Neuro: general weakness. No focal motor deficit. Problem List COVID-19 pneumonia with suspected superimposed bacterial pneumonia CHARU superimposed on CKD 3 Medical debility/generalized weakness with chronic back pain Diabetes mellitus type 2insulin-dependent Hypertension Hyperlipidemia 2 out of 4 blood cultures bottles grew staph hominis. Patient had rebound leukocytosis which is now trending down. I doubt this is related to sepsis. Continue vancomycin. Repeat blood culture shows no growth. Patient received 4 days of IV Rocephin for UTI. Seen by infectious disease. Patient will need 2 weeks of antibiotic for bacteremia. Per report patient is chronically bedbound. Home with home health versus long- term care placement. SW is contacting family for decision on disposition CHARU resolved. Oral feeding as tolerated. Continue to monitor CBC to follow leukocytosis. VTE: lovenox Code: DNR
[2021-05-28] MEDS: HYDROCODONE/APAP 5/325 MG TAB PO PRN (13:25)
--- NOTE | 2021-05-28 19:56 | P.PN ---
Date of Service: 05/29/21 Subjective: No acute events overnight. Worked with physical therapy yesterday, set up at bedside. Other times refusing to work with physical therapy Seems little agitated today, states she wants to go home Denied inpatient rehab Spoke with patient's , concerned that she cannot completely manage him at [facility], however patient has refused SNF in the past and currently ROS: 10 point ROS as noted above, otherwise negative Physical exam GEN: NAD, alert HEENT: Normal conjunctiva, sclera anicteric CV: Regular rate and rhythm, no edema Pulm: Nonlabored respirations on room air ABD: Soft, nontender, nondistended Integumentary: No rashes Neuro: slurred speech (chronic), general weakness, no focal findings Problem List COVID-19 pneumonia with suspected superimposed bacterial pneumonia Gram-positive bacteremia CHARU superimposed on CKD 3 Medical debility/generalized weakness with chronic back pain Diabetes mellitus type 2insulin-dependent Hypertension Hyperlipidemia 2/4 blood cultures: staph hominis. Only sensitive to vancomycin ID consulted - recommended 2 weeks of antibiotics for bacteremia continue IV vanc repeat blood culture: NGTD PICC line ordered chronically bedbound / weakness over several months. family initially planned to take patient home, and requested inpatient rehab evaluation. Patient was denied, was noted to be combative/refusing PT over the last 4 days, with exception of yesterday updated over the phone today, states he has refused SNF in the past, will plan for home health/home PT CHARU resolved, feed as tolerated VTE: lovenox Code: DNR Dispo: home health/PT, needs picc and IV antibiotics for 2 weeks total from negative blood culture date dc in 1-2 days Time Spent Managing Pts Care (In Minutes): 35
--- NOTE | 2021-05-28 20:16 | PN ---
Subjective: The patient lying in bed. No new acute event. Denies any headache, nausea, vomiting, c hest pain, abdominal pain, constipation, or diarrhea. Objective: Vital Signs: Temperature 97, pulse 77, respirations 16, blood pressure 151/82. Lungs: Basal crackles. Heart: S1, S2. Regular. Abdomen: Soft and nontender. Bowel sounds present. Extremities: No edema. Laboratory Data: WBC 14, hemoglobin 9.9, platelets 296. Chemistry shows sodium 143, potassium 3.7, chloride 110, bicarb 26, BUN 26, creatinine 1.1, glucose 181. Micro data shows blood cultures Staph hominis. Repeat blood cultures on 05/22 were negative. The patient currently being treated with van comycin. Assessment And Plan: 1.Bacteremia secondary to Staphylococcus hominis. Repeat cultures are negative. Continue 14-day co urse. 2.Left lower lobe pneumonia with COVID-19 infection. Can be switched to oral antibiotic on discharg e. We will follow the patient as needed. NF/MODL Voice ID: [id number] Report ID: [id number]
[2021-05-28] MEDS: ATORVASTATIN 10 MG TAB PO SCH (21:33)
[2021-05-29] MEDS: NA CHLORIDE 0.9% 1,000 ML IV SCH (03:39)
[2021-05-29 05:00] LABS: Absolute Lymphocytes (CBC) 1.8 K/uL (0.7-4.9); Hematocrit 29.8 % (39.6-49.0); Lymphocytes % 17.3 % (15.3-44.8); MPV 8.4 fL (7.6-11.3); RBC Red Blood Cell Count 3.17 M/uL (4.33-5.43)
[2021-05-29 05:14] LABS: Potassium 3.7 mmol/L (3.5-5.1)
[2021-05-29] MEDS: VANCOMYCIN 1.5 GM in NA CHLORIDE 0.9% 500 ML IVPB SCH (06:16)
[2021-05-29] MEDS ORDERED: HOME MED 1 EA UNK (Pravastatin Sodium [Pravastatin Sodium] 40 MG Tablet) PO SCH (09:00)
[2021-05-29] MEDS: GLUCERNA SHAKE 237 ML CAN PO SCH ×2 (09:00→20:32)
[2021-05-29] MEDS: ramipriL 5 MG CAP PO SCH (09:30)
[2021-05-29] MEDS: TAMSULOSIN 0.4 MG SR CAP PO SCH (09:30)
[2021-05-29] MEDS: SERTRALINE HCL 50 MG TAB PO SCH (09:31)
[2021-05-29] MEDS: ENOXAPARIN 40 MG/0.4 ML SQ SCH (09:31)
[2021-05-29] MEDS: INSULIN -REGULAR HUMAN 50 UNIT/0.5 ML ML SQ SCH ×4 (09:31→20:32)
[2021-05-29] MEDS: ATORVASTATIN 10 MG TAB PO SCH (20:32)
[2021-05-29 23:57] VITALS: O2SAT 91
[2021-05-30 04:32] LABS: Potassium 3.6 mmol/L (3.5-5.1)
--- NOTE | 2021-05-30 06:35 | P.PN ---
Date of Service: 05/30/21 Subjective: ROS: 10 point ROS as noted above, otherwise negative Physical exam GEN: NAD, alert HEENT: Normal conjunctiva, sclera anicteric CV: Regular rate and rhythm, no edema Pulm: Nonlabored respirations on room air ABD: Soft, nontender, nondistended Integumentary: No rashes Neuro: slurred speech (chronic), general weakness, no focal findings Problem List COVID-19 pneumonia with suspected superimposed bacterial pneumonia Gram-positive bacteremia CHARU superimposed on CKD 3 Medical debility/generalized weakness with chronic back pain Diabetes mellitus type 2insulin-dependent Hypertension Hyperlipidemia 2/4 blood cultures: staph hominis. Only sensitive to vancomycin ID consulted - recommended 2 weeks of antibiotics for bacteremia continue IV vanc repeat blood culture: NGTD PICC line ordered chronically bedbound / weakness over several months. family initially planned to take patient home, and requested inpatient rehab evaluation. Patient was denied, was noted to be combative/refusing PT over the last 4 days, with exception of yesterday updated over the phone today, states he has refused SNF in the past, will plan for home health/home PT CHARU resolved, feed as tolerated VTE: lovenox Code: DNR Dispo: home health/PT, needs picc and IV antibiotics for 2 weeks total from negative blood culture date dc in 1-2 days Time Spent Managing Pts Care (In Minutes): 35
--- NOTE | 2021-05-30 07:50 | RAD REPORT ---
EXAM DESCRIPTION: RAD - Chest Single View - 05/30/2021 6:52 am CLINICAL HISTORY: covid, f/u, hypoxia COMPARISON: Chest Single View dated 05/20/2021; Chest Single View dated 04/17/2021; Chest Single View dated 03/11/2021; Chest Single View dated 12/29/2017 FINDINGS: Lines: None. Lungs: Marked worsening in bilateral airspace disease there are now bilateral pulmonary opacities inc luding areas of consolidation in both lungs. Pleural: No significant pleural effusions or pneumothorax. Cardiac: The heart size is within normal limits. Bones: No acute fractures. Other: IMPRESSION: Marked worsening in bilateral airspace disease which is severe and presumably represents multifocal pneumonia.
[2021-05-30] MEDS: GLUCERNA SHAKE 237 ML CAN PO SCH (09:00)
[2021-05-30] MEDS: TAMSULOSIN 0.4 MG SR CAP PO SCH (09:00)
[2021-05-30] MEDS ORDERED: POTASSIUM CL SA 10 MEQ TAB PO ONE (09:00)
[2021-05-30] MEDS: ramipriL 5 MG CAP PO SCH (10:20)
[2021-05-30] MEDS: SERTRALINE HCL 50 MG TAB PO SCH (10:21)
[2021-05-30] MEDS: ENOXAPARIN 40 MG/0.4 ML SQ SCH (10:21)
[2021-05-30] MEDS: INSULIN -REGULAR HUMAN 50 UNIT/0.5 ML ML SQ SCH ×3 (10:22→16:30)
--- NOTE | 2021-05-30 11:02 | RAD REPORT ---
EXAM DESCRIPTION: RAD - Chest Single View - 05/30/2021 10:38 am CLINICAL HISTORY: picc line placement COMPARISON: Chest Single View dated 05/30/2021; Chest Single View dated 05/20/2021; Chest Single View d ated 04/17/2021; Chest Single View dated 03/11/2021 FINDINGS: Interval placement of a right subclavian approach PICC with tip overlying the distal SVC. Airspace disease is similar. IMPRESSION: Right subclavian approach PICC with tip overlying the distal SVC in satisfactory positio n.
--- NOTE | 2021-05-30 12:21 | P.PN ---
Subjective Date of Service: 05/30/21 Primary Care Provider: Dr. Mcmanus Chief Complaint: Pneumonia, weakness Patient seen and examined at bedside, doing well with no acute acute complaints. Review of Systems 10-point ROS is otherwise unremarkable Physical Examination - Vital Signs Temperature: 99.1 F Blood Pressure: 149/70 Pulse: 88 Respirations: 18 Pulse Ox (%): 91 - Physical Exam General: Alert, In no apparent distress HEENT: Atraumatic, Normocephalic Neck: 2+ carotid pulse no bruit Respiratory: Clear to auscultation bilaterally, Normal air movement Cardiovascular: No edema Gastrointestinal: Normal bowel sounds, Soft and benign Musculoskeletal: No clubbing, No swelling Assessment And Plan - Plan Assessment/plan Cons bacteremia Recommend treating with IV vancomycin for 2 weeks following negative blood culture report. Tentative end date on 06/05. Vancomycin trough obtained on 05/29 within therapeutic range at 15.9. Vancomycin trough goal of 15-20. Right arm PICC line placed on 05/30. -Medical management per primary team Plan of care discussed with Dr. Arredondo Thank you for consultation.
[2021-05-30 12:22] LABS: Magnesium 1.6
--- NOTE | 2021-05-30 13:47 | P.DS ---
Admission Date: 05/21/21 Discharge Date: 05/30/21 Primary Care Provider: Dr. Mcmanus Disposition: DC HOME/HOME HEALTH CARE Discharge Condition: GOOD Reason for Admission: Pneumonia, weakness Consultations: ID - Dr. Arredondo Procedures: CTA Chest (05/20): FINDINGS: Chest Wall: No suspicious thyroid nodules or pathologic lymphadenopathy. Lungs: Mild to moderate multifocal airspace disease. Portions of the lung bases are obscured from view. Pleura: Trace pleural effusions . Mediastinum/dong: No pathologic lymphadenopathy. Pulmonary arteries/Aorta: No filling defect identified. No aortic aneurysm. Heart: No significant pericardial effusion. Normal heart size. Coronary artery calcifications. Upper abdomen: Not included in the field of view. Bones: No acute abnormality. All CT scans are performed using dose optimization technique as appropriate and may include automated exposure control or mA/KV adjustment according to patient size. IMPRESSION: Negative for pulmonary embolism. Mild to moderate bilateral airspace disease concerning for multifocal pneumonia, including Covid-19. Problem List COVID-19 pneumonia with suspected superimposed bacterial pneumonia Gram-positive bacteremia (CONS) CHARU superimposed on CKD 3, resolved Medical debility/generalized weakness with chronic back pain Diabetes mellitus type 2insulin-dependent Hypertension Hyperlipidemia Brief History of Present Illness: 75-year-old male with history of insulin-dependent diabetes mellitus type 2, hypertension, hyperlipidemia, chronic back pain presents emergency department for generalized weakness, back pain. Patient reports that he tested positive for COVID about a week ago. Patient was evaluated in the emergency department labs were significant for white blood cell count 12.5 hemoglobin 10.9 creatinine 1.52 GFR 45. Chest x-ray demonstrates new left-sided basilar suspected pneumonia. Patient was given Rocephin/Zithromax by ED provider who wishes to admit patient under observation for pneumonia/weakness. Patient only concern is receiving back surgery, explained to patient in detail that that is to be done on outpatient basis and he will be evaluated for his generalized weakness and pneumonia at this time. Hospital Course: Patient was admitted with generalized weakness, back pain, and increased lethargy. Initially treated with empiric antibiotics. Blood cultures were positive for staph hominis. Infectious disease was consulted, patient was started on IV vancomycin, PICC line was placed on 05/29, patient will require IV vancomycin with a stop date of 06/05. Patient was evaluated by family request for inpatient rehab. Fortunately patient was not cooperative with physical therapy, reported he wanted to go home, and determined too resistant /uncooperative to qualify for inpatient rehab. This was discussed with the patient and his . Patient refused SNF, they decided to go home with home health/physical therapy. Follow-up with PCP in 1 week Vital Signs/Physical Exam: Physical exam GEN: NAD, alert HEENT: Normal conjunctiva, sclera anicteric CV: Regular rate and rhythm, no edema Pulm: Nonlabored respirations on room air ABD: Soft, nontender, nondistended Integumentary: No rashes Neuro: slurred speech (chronic), general weakness, no focal findings Temp Pulse Resp BP Pulse Ox 99.1 F 88 18 149/70 H 91 05/30/21 12:21 05/30/21 12:21 05/30/21 12:21 05/30/21 12:21 05/30/21 12:21 Laboratory Data at Discharge: WBC 10.50 K/uL (4.3-10.9) D 05/29/21 04:50 Hgb 10.1 g/dL (13.6-17.9) L 05/29/21 04:50 Hct 29.8 % (39.6-49.0) L 05/29/21 04:50 Plt Count 296 K/uL (152-406) 05/29/21 04:50 Sodium 144 mmol/L (136-145) 05/30/21 03:01 Potassium 3.6 mmol/L (3.5-5.1) 05/30/21 03:01 BUN 26 mg/dL (7-18) H 05/30/21 03:01 Creatinine 1.12 mg/dL (0.55-1.3) 05/30/21 03:01 Glucose 178 mg/dL (74-106) H 05/30/21 03:01 Magnesium 1.6 05/30/21 03:01 Total Bilirubin 0.5 mg/dL (0.2-1.0) 05/24/21 03:04 AST 17 U/L (15-37) 05/24/21 03:04 ALT 15 U/L (12-78) 05/24/21 03:04 Alkaline Phosphatase 68 U/L (45-117) 05/24/21 03:04 Home Medications: Hydrocodone/Acetaminophen [Hydrocodone-Acetamin 5-325 mg] 1 tab PO SEECOM PRN 04/18/21 Gabapentin 1 tab PO BID 05/26/21 Insulin NPH Hum/Reg Insulin Hm [Novolin 70-30 100 Unit/ml Vial] 20 unit SQ TID 05/26/21 Meloxicam 1 tab PO DAILY 05/26/21 Pravastatin Sodium 1 tab PO DAILY 05/26/21 Ramipril [Altace] 1 tab PO DAILY 05/26/21 Sertraline [Zoloft*] 1 tab PO DAILY 05/26/21 Tamsulosin [Flomax*] 1 cap PO DAILY 05/26/21 Physician Discharge Instructions: Patient was admitted with generalized weakness, back pain, and increased l ethargy. Initially treated with empiric antibiotics. Blood cultures were positive for staph hominis. Infectious disease was consulted, patient was started on IV vancomycin, PICC line was placed on 05/29, patient will require IV vancomycin with a stop date of 06/05. Patient was evaluated by family request for inpatient rehab. Fortunately patient was not cooperative with physical therapy, reported he wanted to go home, and determined too resistant /uncooperative to qualify for inpatient rehab. This was discussed with the patient and his . Patient refused SNF, they decided to go home with home health/physical therapy. Follow-up with PCP in 1 week Diet: ADA Activity: Fall precautions Followup: NONE,NONE [Primary Care Provider] - Time spent managing pt's care (in minutes): 45
[2021-05-30] MEDS: VANCOMYCIN 1.5 GM in NA CHLORIDE 0.9% 500 ML IVPB SCH (15:53)
[2021-05-30 18:02] VITALS: BP 127/69; TEMP 98.5
== END 2021-05-30 18:41 | disposition home health service (06) | DRG 177 ==
LOC: ER 12:13 → ERHOLD 18:24 → 4TH 05-21 16:29 → OBSVTOIN 05-21 19:23
PROVIDERS: ADMIT Hospitalist; ATTEND Hospitalist
PROC: 02HV33Z Insertion of Infusion Device into Superior Vena Cava, Percutaneous Approach (ICD-10-PCS; principal; 2021-05-30)
DX: U07.1 COVID-19 (principal); J12.82 Pneumonia due to coronavirus disease 2019; J15.29 Pneumonia due to other staphylococcus; N17.9 Acute kidney failure, unspecified; N39.0 Urinary tract infection, site not specified; R78.81 Bacteremia; I12.9 Hypertensive chronic kidney disease with stage 1 through stage 4 chronic kidney disease, or unspecified chronic kidney disease; N18.30 Chronic kidney disease, stage 3 unspecified; E11.22 Type 2 diabetes mellitus with diabetic chronic kidney disease; E11.42 Type 2 diabetes mellitus with diabetic polyneuropathy; E78.5 Hyperlipidemia, unspecified; D72.829 Elevated white blood cell count, unspecified; G89.29 Other chronic pain; M54.9 Dorsalgia, unspecified; E86.0 Dehydration; F17.220 Nicotine dependence, chewing tobacco, uncomplicated; Z66 Do not resuscitate; Z79.4 Long term (current) use of insulin; Z74.01 Bed confinement status; Z79.899 Other long term (current) drug therapy; Z89.411 Acquired absence of right great toe
CPT/HCPCS: 36415; 36569; 71045; 71275; 80048; 80053; 80202; 81003; 81015; 82728; 82947; 83735; 84132; 85025; 86140; 87040; 87077; 87086; 87088; 87186; 87205; 93005; 94010; 97110; 97161; 97530; 99285; G0378; J0456; J1650; J2930; J3370; J7030; J7040; J7050; Q9967; U0003